=== PATIENT | female | born 1940 | race Caucasian/White ===

== ENCOUNTER → 2019-06-23 19:00 | Outpatient (ROUT) | payer OTHER, SELFPAY ==
[2019-06-23 19:20] LABS: Add Manual Diff / Slide Review NO; Basophils Absolute Auto 0 /uL (0-100); Basophils Percent Auto 0.3 % (0-2); Eosinophils Absolute Auto 500 /uL (0-450); Eosinophils Percent Auto 3.7 % (2-4); Hematocrit 33.3 % (36-46); Lymphocytes Absolute Auto 1800 /uL (1100-4500); Lymphocytes Percent Auto 14.7 % (25-40); Mean Corpuscular HGB Conc 33.1 % (30-36); Mean Corpuscular Volume 84.4 fL (80-100); Monocytes Absolute Auto 800 /uL (0-900); Monocytes Percent Auto 6.2 % (3-14); Neutrophils Absolute Auto 9200 /uL (1500-7000); Neutrophils Percent Auto 75.1 % (50-75); Platelet Count 268 X10^3/uL (150-400); Red Blood Cell Count 3.94 X10^6/uL (4.0-5.2); Red Cell Distribution Width 14.5 % (11.6-14.8); White Blood Cell Count 12.3 X10^3/uL (4.5-11.0)
[2019-06-23 19:29] LABS: Alanine Aminotransferase 21 IU/L (<35); Albumin 4.2 g/dL (3.5-5.0); Albumin Globulin Ratio 1.9 (1.0-2.8); Alkaline Phosphatase 140 U/L (38-126); Aspartate Aminotransferase 27 IU/L (14-36); BUN Creatinine Ratio 27.5 (6-22); Bilirubin Total 0.4 mg/dL (0.2-1.3); Blood Urea Nitrogen 22 mg/dL (7-17); Calcium 9.5 mg/dL (8.4-10.2); Carbon Dioxide 31 mmol/L (22-32); Chloride 94 mmol/L (98-107); Estimated Glomerular Filt Rate > 60.0 mL/min (>60); Globulin 2.2 g/dL (1.7-4.1); Glucose 89 mg/dL (80-110); HEMOLYSIS < 15 (0-50); Potassium 4.6 mmol/L (3.4-5.1); Sodium 137 mmol/L (137-145); Total Protein 6.4 g/dL (6.3-8.2)
== END ==
PROVIDERS: Visit Provider Student in an Organized Health Care Education/Training Program
DX: I10 Essential (primary) hypertension (principal)
CPT/HCPCS: 80053; 85025

== ENCOUNTER → 2019-07-30 15:42 | Outpatient (ROUT) | payer OTHER, SELFPAY ==
[2019-07-30 16:23] LABS: Alanine Aminotransferase 18 IU/L (<35); Albumin 4.3 g/dL (3.5-5.0); Albumin Globulin Ratio 1.7 (1.0-2.8); Alkaline Phosphatase 132 U/L (38-126); Aspartate Aminotransferase 26 IU/L (14-36); Bilirubin Total 0.4 mg/dL (0.2-1.3); Bilirubin Unconjugated 0.2 mg/dL (0.0-1.1); Globulin 2.5 g/dL (1.7-4.1); HEMOLYSIS < 15 (0-50); Total Protein 6.8 g/dL (6.3-8.2)
== END ==
PROVIDERS: Visit Provider Student in an Organized Health Care Education/Training Program
DX: R06.00 Dyspnea, unspecified (principal)
CPT/HCPCS: 80076

== ENCOUNTER → 2019-09-15 18:21 | Outpatient (ROUT) | payer OTHER, SELFPAY ==
[2019-09-15 19:19] LABS: Alanine Aminotransferase 18 IU/L (<35); Albumin 4.1 g/dL (3.5-5.0); Albumin Globulin Ratio 1.7 (1.0-2.8); Alkaline Phosphatase 133 U/L (38-126); Aspartate Aminotransferase 27 IU/L (14-36); Bilirubin Total 0.2 mg/dL (0.2-1.3); Bilirubin Unconjugated 0.1 mg/dL (0.0-1.1); Globulin 2.4 g/dL (1.7-4.1); HEMOLYSIS < 15 (0-50); Total Protein 6.5 g/dL (6.3-8.2)
[2019-09-15 19:54] LABS: Hemoglobin A1C% w Est Avg Glu 6.2 % (4.0-6.0)
[2019-09-16 14:38] LABS: Calcium 9.8 mg/dL (8.4-10.2); Gamma Glutamyl Transpeptidase 15 U/L (12-43)
[2019-09-18 12:16] LABS: Parathyroid Hormone Int 35 pg/mL (14-64)
== END ==
PROVIDERS: Visit Provider Student in an Organized Health Care Education/Training Program
DX: E11.9 Type 2 diabetes mellitus without complications (principal); I10 Essential (primary) hypertension
CPT/HCPCS: 80076; 82310; 82977; 83036; 83970

== ENCOUNTER → 2020-01-06 13:00 | Outpatient (CLI) | payer OTHER, SELFPAY ==
--- NOTE | 2020-01-06 13:03 | DI.RAD.S_ITS ---
PROCEDURE: XR LUMBAR SPINE MIN 4V INDICATIONS: LBP and hip pain TECHNIQUE: 5 views of the lumbar spine were acquired. COMPARISON: None. FINDINGS: Bones: No fracture or focal osseous destruction. Trace anterolisthesis of L2 on L3. Severe narrowing of the L3-L4, L4-L5 L5-S1 disc spaces. Moderate narrowing of the remaining lumbar disc spaces. Straightening of the normal lordotic curvature. Minimal levocurvature. Status post laminectomies at L2-S1. Sacroiliac sclerosis is seen bilaterally. Mild bilateral hip joint degeneration. Soft tissues: Overlying bowel gas pattern is normal. No suspicious soft tissue calcifications. Oblique images: No pars defects. IMPRESSION: Chronic postsurgical and degenerative changes as above Dictated by: Donal Vyas M.D. on 01/06/2020 at 15:53 Approved by: Donal Vyas M.D. on 01/06/2020 at 15:54
== END ==
PROVIDERS: PCP Student in an Organized Health Care Education/Training Program; Referring Provider Student in an Organized Health Care Education/Training Program; Visit Provider Physical Medicine & Rehabilitation
DX: M54.41 Lumbago with sciatica, right side (principal); M54.42 Lumbago with sciatica, left side; M25.559 Pain in unspecified hip; M16.0 Bilateral primary osteoarthritis of hip; M48.061 Spinal stenosis, lumbar region without neurogenic claudication; M48.07 Spinal stenosis, lumbosacral region; Z98.890 Other specified postprocedural states
CPT/HCPCS: 72110

== ENCOUNTER → 2020-03-28 14:40 | Outpatient (ROUT) | payer OTHER, SELFPAY ==
[2020-03-28 14:50] LABS: Add Manual Diff / Slide Review NO; Basophils Absolute Auto 0 /uL (0-100); Basophils Percent Auto 0.4 % (0-2); Eosinophils Absolute Auto 400 /uL (0-450); Eosinophils Percent Auto 3.4 % (2-4); Hematocrit 32.1 % (36-46); Hemoglobin 10.6 g/dL (12.0-16.0); Lymphocytes Absolute Auto 1600 /uL (1100-4500); Lymphocytes Percent Auto 15.8 % (25-40); Mean Corpuscular Hemoglobin 28.4 PG (26-34); Monocytes Absolute Auto 600 /uL (0-900); Neutrophils Absolute Auto 7600 /uL (1500-7000); Neutrophils Percent Auto 74.4 % (50-75); Platelet Count 255 X10^3/uL (150-400); Red Blood Cell Count 3.73 X10^6/uL (4.0-5.2); Red Cell Distribution Width 14.1 % (11.6-14.8); White Blood Cell Count 10.3 X10^3/uL (4.5-11.0)
[2020-03-28 14:56] LABS: Alanine Aminotransferase 22 IU/L (<35); Albumin 4.3 g/dL (3.5-5.0); Alkaline Phosphatase 116 U/L (38-126); Aspartate Aminotransferase 28 IU/L (14-36); BUN Creatinine Ratio 27.7 (6-22); Bilirubin Total 0.3 mg/dL (0.2-1.3); Blood Urea Nitrogen 26 mg/dL (7-17); Calcium 9.2 mg/dL (8.4-10.2); Carbon Dioxide 33 mmol/L (22-32); Chloride 96 mmol/L (98-107); Cholesterol 173 mg/dL (140-199); Estimated Glomerular Filt Rate 57.7 mL/min (>60); Globulin 2.2 g/dL (1.7-4.1); Glucose 93 mg/dL (80-110); HDL Cholesterol 46 mg/dL (40-60); HEMOLYSIS < 15 (0-50); LDL Cholesterol Calculated 93 mg/dL (<100); Potassium 4.8 mmol/L (3.4-5.1); Sodium 137 mmol/L (137-145); Total Protein 6.5 g/dL (6.3-8.2); Triglycerides 171 mg/dL (35-150)
[2020-03-30 14:30] LABS: HEMOLYSIS < 15 (0-50); Iron 54 ug/dL (37-170)
[2020-03-30 14:41] LABS: Percent Iron Saturation 19 % (15-50); Total Iron Binding Capacity 291 ug/dL (265-497); Transferrin 229 mg/dL (206-381)
[2020-03-30 15:07] LABS: Ferritin 35 ng/mL (11-264)
[2020-03-30 15:37] LABS: Folate > 20.0 ng/mL (2.76-20.0)
== END ==
PROVIDERS: PCP Student in an Organized Health Care Education/Training Program; Visit Provider Student in an Organized Health Care Education/Training Program
DX: I10 Essential (primary) hypertension (principal); E11.9 Type 2 diabetes mellitus without complications; R74.8 Abnormal levels of other serum enzymes
CPT/HCPCS: 80053; 80061; 82728; 82746; 83036; 83540; 83550; 85025

== ENCOUNTER → 2020-06-23 14:25 | Outpatient (ROUT) | payer OTHER, SELFPAY ==
[2020-06-23 14:38] LABS: Hematocrit 31.8 % (36-46); Hemoglobin 10.6 g/dL (12.0-16.0); Mean Corpuscular HGB Conc 33.4 % (30-36); Mean Corpuscular Hemoglobin 29.8 PG (26-34); Mean Corpuscular Volume 89.1 fL (80-100); Platelet Count 229 X10^3/uL (150-400); Red Blood Cell Count 3.57 X10^6/uL (4.0-5.2); Red Cell Distribution Width 13.6 % (11.6-14.8); White Blood Cell Count 11.3 X10^3/uL (4.5-11.0)
== END ==
PROVIDERS: PCP Student in an Organized Health Care Education/Training Program; Visit Provider Student in an Organized Health Care Education/Training Program
DX: D64.9 Anemia, unspecified (principal)
CPT/HCPCS: 85027

== ENCOUNTER 2020-07-18 10:30 | Outpatient (RCR) | payer OTHER, SELFPAY ==
--- NOTE | 2020-07-01 14:52 | PT.OIE ---
Current Diagnoses Benign paroxysmal vertigo, unspecified ear (07/01/20) Benign paroxysmal vertigo, left ear (07/01/20) Past Medical History (Last Updated 01/11/20 @ 16:21 by Job Dacosta DO) Diabetes Facet arthropathy, lumbar Lumbar post-laminectomy syndrome Scoliosis due to degenerative disease of spine in adult patient Past Surgical History (Last Reviewed 01/11/20 @ 16:18 by Job Dacosta DO) H/O lumbosacral spine surgery Visit Care Team Role Provider Type Tresa Stevens PA-C Attending Provider Physician Primary Care Provider Referring Provider Specialty: Internal Medicine Address: [address] [place] [address] Email: [email or web address] Physical [facility] Initial Evaluation PT-OP-A Visit Information Start: 07/01/20 14:42 Freq: Status: Active Protocol: Document 07/01/20 09:45 DCW (Rec: 07/01/20 14:52 DCW [id number]) Out-Patient Physical Therapy Visit Information Visit Information Visit Type Initial Evaluation Visit Start Time 09:45 Visit Stop Time 10:30 Total Visit Minutes 45 Visit Number 1 Number of [employer] Visits 0 Evaluation Information Evaluation Date 07/01/20 PT-OP-B Current Condition Start: 07/01/20 14:42 Freq: Status: Active Protocol: Document 07/01/20 09:45 DCW (Rec: 07/01/20 14:52 DCW [id number]) Current Condition History of Current Condition Onset Date 4 months Current Complaints Position-dependent vertigo History of Current Condition Pt is a 79 year old female complaining of a four month history of motion-induced vertigo when lying down to her left. Pt reports episodes last less than a minute. Pt denies recent hearing changes, diplopia, dysarthria, discoordination, or decreased mentation/consciousness. Pt reports symptoms are waxing/ waning in nature. Pt denies hx of hyperlipidemia, arrhythmia , head trauma, seizure, migraines, CVA, or excessive smoking or drinking. Pt does have a history of HTN, for which she just started a fourth medication, and DM II, which has been well controlled . PT-OP-C Subjective Start: 07/01/20 14:42 Freq: Status: Active Protocol: Document 07/01/20 09:45 DCW (Rec: 07/01/20 14:52 [facility] [id number]) OP-PT Subjective Patient Comments Patient Comments I looked up the Alice maneuver online, and did it myself, and it seemed to help, but then just went right back to normal by the end of the day. PT-OP-O Vestibular Start: 07/01/20 14:42 Freq: Status: Active Protocol: Document 07/01/20 09:45 DCW (Rec: 07/01/20 14:52 [facility] [id number]) Vestibular Assessment Screening Tests Vestibular Artery Screen Negative Auditory Tests Farias Test Within normal limits Rinne Test Negative Air Conduction Results Equal Visual Testing Smooth Pursuits Horizontal WNL Smooth Pursuits Vertical WNL Saccades Horizontal WNL Gaze Evoked Nystagmus With Fixation Negative Gaze Evoked Nystagmus Without Fixation Negative Heave Test Positive Bilateral Thrust Head Positive Bilateral Positional Testing [place]-Hallpike Positive Left,Negative Right, Upbeating,< 60 Seconds Comments Vestibular Comments During left [place]-Hallpike test, pt complained of vertigo and demonstrated up-beating, torsional nystagmus lasting approximately 15 seconds PT-OP-Q Treatments Start: 07/01/20 14:42 Freq: Status: Active Protocol: Document 07/01/20 09:45 DCW (Rec: 07/01/20 14:52 [facility] [id number]) Canalithic Repositioning BPPV Treatment Alice Affected Canal(s) Left posterior canal Reps x2 Comments Modified Alice PT-OP-T Assessment and Plan Start: 07/01/20 14:42 Freq: Status: Active Protocol: Document 07/01/20 09:45 DCW (Rec: 07/01/20 14:52 [facility] [id number]) Physical Therapy Assessment Rehab Potential Rehabilitation Potential Excellent Evaluation Complexity Number of Personal Factors/Comorbidities 0 Number of Body Systems Impaired 1-2 Clinical Presentation at Evaluation Unstable Impairments Impairments Balance,Coordination, Functional Activities, Vestibular Goals Two Impairment Pt has positive left Mary- Hallpike Cashier Greeter Goal (LTG) Pt to show negative positional testing bilaterally LTG Duration 08/01/20 One Impairment Pt experiences vertigo with bed mobility Penitentiary Goal (LTG) Pt to report feeling symptom- free with all bed mobility for one week. LTG Duration 1/18/21 Assessment Summary Assessment During left Mary-Hallpike test, pt complained of vertigo and demonstrated up-beating, torsional nystagmus lasting approximately 15 seconds, consistent with diagnosis of left-sided posterior canal BPPV, canalithiasis-type. Pt was treated with a left-sided modified Alice maneuver. Pt complained of symptoms in the first and third position, which is normally indicative of a successful treatment. Further positional testing was negative. Pt was educated on BPPV, expectations for treatment, possible recurrence (BPPV has a ~50% recurrence rate in the five years following treatment), and post -Alice restrictions. Pt to return in ~1 week for a follow -up appointment, and intermittently afterward as indicated for treatment of BPPV. Physical Therapy Plan Frequency and Duration Frequency of Treatment 1-2x/week Duration of Treatment 6 weeks Plan of Care Start Date 07/01/20 Plan of Care End Date 08/01/20 Therapeutic Interventions Therapeutic Interventions Balance Training,Canalithic Repositioning,Coordination Training,Vestibular Rehabilitation Next Visit Focus/Plan Next Note Type Treatment Note Next Visit Plan Positional testing, CRM as indicated
--- NOTE | 2020-07-01 14:52 | PT.OPPOC ---
Physical, Occupational & Speech Therapy At [facility] Current Diagnoses Benign paroxysmal vertigo, unspecified ear (07/01/20) Benign paroxysmal vertigo, left ear (07/01/20) Visit Care Team Role Provider Type Tresa Stevens PA-C Attending Provider Physician Primary Care Provider Referring Provider Specialty: Internal Medicine Address: [address] [place] [address], [facility] Email: [email or web address] Plan Of Care PT-OP-T Assessment and Plan Start: 07/01/20 14:42 Freq: Status: Active Protocol: Document 07/01/20 09:45 DCW (Rec: 07/01/20 14:52 DCW [id number]) Physical Therapy Assessment Rehab Potential Rehabilitation Potential Excellent Evaluation Complexity Number of Personal Factors/Comorbidities 0 Number of Body Systems Impaired 1-2 Clinical Presentation at Evaluation Unstable Impairments Impairments Balance,Coordination, Functional Activities, Vestibular Goals Two Impairment Pt has positive left Mary- Hallpike Correction Goal (LTG) Pt to show negative positional testing bilaterally LTG Duration 08/01/20 One Impairment Pt experiences vertigo with bed mobility Social Insurance Specialist Goal (LTG) Pt to report feeling symptom- free with all bed mobility for one week. LTG Duration 08/01/20 Assessment Summary Assessment During left [place]-Hallpike test, pt complained of vertigo and demonstrated up-beating, torsional nystagmus lasting approximately 15 seconds, consistent with diagnosis of left-sided posterior canal BPPV, canalithiasis-type. Pt was treated with a left-sided modified Alice maneuver. Pt complained of symptoms in the first and third position, which is normally indicative of a successful treatment. Further positional testing was negative. Pt was educated on BPPV, expectations for treatment, possible recurrence (BPPV has a ~50% recurrence rate in the five years following treatment), and post -Alice restrictions. Pt to return in ~1 week for a follow -up appointment, and intermittently afterward as indicated for treatment of BPPV. Physical Therapy Plan Frequency and Duration Frequency of Treatment 1-2x/week Duration of Treatment 6 weeks Plan of Care Start Date 07/01/20 Plan of Care End Date 08/01/20 Therapeutic Interventions Therapeutic Interventions Balance Training,Canalithic Repositioning,Coordination Training,Vestibular Rehabilitation Next Visit Focus/Plan Next Note Type Treatment Note Next Visit Plan Positional testing, CRM as indicated Plan of Care Dates Plan of Care Start Date 07/01/20 Plan of Care End Date 08/01/20 Electronically Signed by: Roman Finn, PT 07/01/20 [id number] Please Sign and Return: I have reviewed this Plan of Care and certify that the skilled therapy services above are required to meet the patient?s needs. Physician Signature Date Printed Name and Credentials Clinical Instructor Signature Printed Name and Credentials
--- NOTE | 2020-07-18 11:04 | PT.OTN ---
Current Diagnoses Benign paroxysmal vertigo, unspecified ear (07/18/20) Benign paroxysmal vertigo, left ear (07/18/20) Physical Therapy Treatment Note PT-OP-A Visit Information Start: 07/01/20 14:42 Freq: Status: Active Protocol: Document 07/18/20 10:30 DCW (Rec: 07/18/20 11:03 DCW [id number]) Out-Patient Physical Therapy Visit Information Visit Information Visit Type Treatment Note Visit Start Time 10:30 Visit Stop Time 11:00 Total Visit Minutes 30 Visit Number 2 Number of INFORMATION TECHNOLOGY ADVISOR Visits 0 Evaluation Information Evaluation Date 07/01/20 PT-OP-B Current Condition Start: 07/01/20 14:42 Freq: Status: Active Protocol: Document 07/01/20 09:45 DCW (Rec: 07/01/20 14:52 DCW [id number]) Current Condition History of Current Condition Onset Date 4 months Current Complaints Position-dependent vertigo History of Current Condition Pt is a 79 year old female complaining of a four month history of motion-induced vertigo when lying down to her left. Pt reports episodes last less than a minute. Pt denies recent hearing changes, diplopia, dysarthria, discoordination, or decreased mentation/consciousness. Pt reports symptoms are waxing/ waning in nature. Pt denies hx of hyperlipidemia, arrhythmia , head trauma, seizure, migraines, CVA, or excessive smoking or drinking. Pt does have a history of HTN, for which she just started a fourth medication, and DM II, which has been well controlled . PT-OP-C Subjective Start: 07/01/20 14:42 Freq: Status: Active Protocol: Document 07/18/20 10:30 DCW (Rec: 07/18/20 11:03 DCW [id number]) OP-PT Subjective Patient Comments Patient Comments Pt reports her dizziness in improved, but still present. I think there are two different things going on. At night, laying down in my bed, a couple times since I was in here a few weeks ago, I've had a few quick episodes of dizziness. But I've also had a few periods of feeling...it's hard to describe, but it's more of a disorientation. I feel the need to hang on to something for a little bit. What may be related to that could be medication changes or dehydration. PT-OP-O Vestibular Start: 07/01/20 14:42 Freq: Status: Active Protocol: Document 07/18/20 10:30 DCW (Rec: 07/18/20 11:03 DCW [id number]) Vestibular Assessment Positional Testing Mary-Hallpike Negative Left,Negative Right PT-OP-Q Treatments Start: 07/01/20 14:42 Freq: Status: Active Protocol: Document 07/18/20 10:30 DCW (Rec: 07/18/20 11:03 DCW [id number]) Canalithic Repositioning BPPV Treatment Alice Affected Canal(s) Left posterior canal Reps 1 Comments Modified Alice PT-OP-T Assessment and Plan Start: 07/01/20 14:42 Freq: Status: Active Protocol: Document 07/18/20 10:30 DCW (Rec: 07/18/20 11:03 DCW [id number]) Physical Therapy Assessment Impairments Impairments Balance,Coordination, Functional Activities, Vestibular Goals Two Impairment Pt has positive left Mary- Hallpike Recreational Therapy Technician Goal (LTG) Pt to show negative positional testing bilaterally LTG Duration 08/01/20 One Impairment Pt experiences vertigo with bed mobility Recreational Therapy Technician Goal (LTG) Pt to report feeling symptom- free with all bed mobility for one week. LTG Duration 08/01/20 Assessment Summary Assessment Pt completely asymptomatic today, no signs of continuing BPPV. Performed one Alice due to pt's complaints of occasional positional symptoms over the last ~week. Pt instructed to phone and schedule a follow-up with any additional symptoms or changes in symptoms. Pt also admits to a large number (four) of HTN meds, which she believes may be influencing her stability, and would like to discuss with her PCP alternatives. Physical Therapy Plan Frequency and Duration Frequency of Treatment 1-2x/week Duration of Treatment 6 weeks Plan of Care Start Date 07/01/20 Plan of Care End Date 08/01/20 Therapeutic Interventions Therapeutic Interventions Balance Training,Canalithic Repositioning,Coordination Training,Vestibular Rehabilitation Next Visit Focus/Plan Next Note Type Treatment Note Next Visit Plan Positional testing, CRM as indicated
--- NOTE | 2020-08-25 14:31 | PT.OPDS ---
Current Diagnoses Benign paroxysmal vertigo, unspecified ear (07/18/20) Benign paroxysmal vertigo, left ear (07/18/20) Visit Care Team Role Provider Type Tresa Stevens PA-C Attending Provider Physician Primary Care Provider Referring Provider Specialty: Internal Medicine Address: [address] [place] [address], [facility] Email: [email or web address] Visit Number Visit Number 2 Discharge Summary PT-OP-B Current Condition Start: 07/01/20 14:42 Freq: Status: Active Protocol: Document 07/01/20 09:45 DCW (Rec: 07/01/20 14:52 DCW [id number]) Current Condition History of Current Condition Onset Date 4 months Current Complaints Position-dependent vertigo History of Current Condition Pt is a 79 year old female complaining of a four month history of motion-induced vertigo when lying down to her left. Pt reports episodes last less than a minute. Pt denies recent hearing changes, diplopia, dysarthria, discoordination, or decreased mentation/consciousness. Pt reports symptoms are waxing/ waning in nature. Pt denies hx of hyperlipidemia, arrhythmia , head trauma, seizure, migraines, CVA, or excessive smoking or drinking. Pt does have a history of HTN, for which she just started a fourth medication, and DM II, which has been well controlled . PT-OP-C Subjective Start: 07/01/20 14:42 Freq: Status: Active Protocol: Document 07/18/20 10:30 DCW (Rec: 07/18/20 11:03 DCW [id number]) OP-PT Subjective Patient Comments Patient Comments Pt reports her dizziness in improved, but still present. I think there are two different things going on. At night, laying down in my bed, a couple times since I was in here a few weeks ago, I've had a few quick episodes of dizziness. But I've also had a few periods of feeling...it's hard to describe, but it's more of a disorientation. I feel the need to hang on to something for a little bit. What may be related to that could be medication changes or dehydration. PT-OP-O Vestibular Start: 07/01/20 14:42 Freq: Status: Active Protocol: Document 07/18/20 10:30 DCW (Rec: 07/18/20 11:03 DCW [id number]) Vestibular Assessment Positional Testing [place]-Hallpike Negative Left,Negative Right PT-OP-T Assessment and Plan Start: 07/01/20 14:42 Freq: Status: Active Protocol: Document 08/25/20 14:30 DCW (Rec: 08/25/20 14:31 DCW [id number]) Physical Therapy Assessment Assessment Summary Assessment At last appointment, pt was instructed to schedule follow- up visits if symptoms continued. Pt has not phoned for any follow-up visits, has now not been seen in more than one month. Pt will be discharged from skilled therapy at this time. Physical Therapy Plan Discharge Physical Therapy Discharge Reasons No Longer Attending PT
== END 2020-09-01 09:52 ==
LOC: PHYS 10:30
PROVIDERS: PCP Student in an Organized Health Care Education/Training Program; Referring Provider Student in an Organized Health Care Education/Training Program; Visit Provider Student in an Organized Health Care Education/Training Program
DX: H81.12 Benign paroxysmal vertigo, left ear (principal); H81.10 Benign paroxysmal vertigo, unspecified ear
CPT/HCPCS: 95992; 97140; 97161

== ENCOUNTER → 2020-12-01 09:16 | Outpatient (CLI) | payer OTHER, SELFPAY ==
[2020-12-01 10:30] LABS: Add Manual Diff / Slide Review NO; Basophils Absolute Auto 100 /uL (0-100); Basophils Percent Auto 0.6 % (0-2); Eosinophils Absolute Auto 400 /uL (0-450); Eosinophils Percent Auto 3.7 % (2-4); Hematocrit 32.8 % (36-46); Hemoglobin 10.7 g/dL (12.0-16.0); Lymphocytes Absolute Auto 1800 /uL (1100-4500); Lymphocytes Percent Auto 17.2 % (25-40); Mean Corpuscular HGB Conc 32.6 % (30-36); Mean Corpuscular Hemoglobin 28.8 PG (26-34); Mean Corpuscular Volume 88.5 fL (80-100); Monocytes Absolute Auto 700 /uL (0-900); Monocytes Percent Auto 6.9 % (3-14); Neutrophils Absolute Auto 7600 /uL (1500-7000); Neutrophils Percent Auto 71.6 % (50-75); Platelet Count 249 X10^3/uL (150-400); Red Blood Cell Count 3.71 X10^6/uL (4.0-5.2); Red Cell Distribution Width 13.6 % (11.6-14.8); White Blood Cell Count 10.7 X10^3/uL (4.5-11.0)
[2020-12-01 10:42] LABS: Alanine Aminotransferase 19 IU/L (<35); Albumin 4.3 g/dL (3.5-5.0); Albumin Globulin Ratio 1.8 (1.0-2.8); Alkaline Phosphatase 110 U/L (38-126); Aspartate Aminotransferase 26 IU/L (14-36); BUN Creatinine Ratio 33.3 (6-22); Bilirubin Total 0.3 mg/dL (0.2-1.3); Blood Urea Nitrogen 31 mg/dL (7-17); Calcium 9.5 mg/dL (8.4-10.2); Carbon Dioxide 32 mmol/L (22-32); Chloride 96 mmol/L (98-107); Estimated Glomerular Filt Rate 58.3 mL/min (>60); Globulin 2.4 g/dL (1.7-4.1); Glucose 118 mg/dL (80-110); HEMOLYSIS < 15 (0-50); Potassium 4.4 mmol/L (3.4-5.1); Sodium 135 mmol/L (137-145); Total Protein 6.7 g/dL (6.3-8.2)
[2020-12-01 10:50] LABS: NT-proBNP (BNP-Adult 18+) 415 pg/mL (<450)
== END ==
PROVIDERS: PCP Student in an Organized Health Care Education/Training Program; Referring Provider Student in an Organized Health Care Education/Training Program; Visit Provider Student in an Organized Health Care Education/Training Program
DX: I10 Essential (primary) hypertension (principal); R06.00 Dyspnea, unspecified
CPT/HCPCS: 36415; 80053; 83880; 85025

== ENCOUNTER → 2020-12-22 12:13 | Outpatient (CLI) | payer OTHER, SELFPAY ==
--- NOTE | 2020-12-22 | DI.ECHO.S_ITS ---
[facility] +---------+ [facility] +---------+ : : [address] : : : : [id number] : : : : Phone: [phone]---------+ Echocardiogram Report + + :Name: CHI ESPAÑA Study Date: 12/22/2020 Height: 60 in : :[facility] ReadingLocation: Weight: 205 lb : : Gender: Female BSA: 1.9 m2 : :: 1940 Age: 80 yrs BP: 140/71 mmHg: :Reason For Study: DYSPNEA ON EXERTION : :Ordering Physician: SRINATH, : :OMAYRA Performed By: Emily Justin : :Referring: OMAYRA YO : + + Interpretation Summary 1) Mildly increased left ventricular thickness (concentric), with normal size, normal wall motion, and normal systolic function (EF 60-65%). 2) Normal right ventricular size and function. 3) Diastolic parameters suggest a pseudonormalization pattern, consistent with probable elevated filling pressures. 4) No significant valvular abnormalities. 5) No prior Echo available for comparison. Procedure: A two-dimensional transthoracic echocardiogram with color flow and Doppler was performed. The study quality was technically adequate. There is no prior echocardiogram noted for this patient. The patient was in sinus bradycardia with heart rates between 52-58 bpm during the exam. Left Ventricle: The left ventricle is normal in size. There is mild concentric left ventricular hypertrophy. The ejection fraction is estimated to be 60-65%. Left ventricular systolic function appears normal without focal wall motion abnormalities. Diastolic parameters suggest a pseudonormalization pattern, consistent with probable elevated filling pressures. Right Ventricle: The right ventricle is normal size. The right ventricular systolic function is normal. Atria: The left atrium is severely dilated. Right atrial size is normal. There is no Doppler evidence for an interatrial shunt. Mitral Valve: The mitral valve is normal in structure and function. There is mild mitral regurgitation. Aortic Valve: The aortic valve is trileaflet. The aortic valve opens well. There is no aortic valve stenosis. No aortic regurgitation is present. Tricuspid Valve: The tricuspid valve is normal in structure and function. There is trace tricuspid regurgitation. The right ventricular systolic pressure is estimated to be at least 29 mmHg based on an estimated right atrial pressure of 3 mm Hg. Pulmonic Valve: The pulmonic valve leaflets are thin and pliable; valve motion is normal. There is no pulmonic valvular regurgitation. Great Vessels: The aortic root is normal size. The dimensions of the ascending aorta are normal. The IVC is of normal diameter and collapses greater than 50% with a sniff. This suggests a low right atrial pressure of 3 mm Hg. Pericardium/ Pleura There is no pericardial effusion. There is no pleural effusion. MMode/2D Measurements & Calculations LVIDd: 5.1 cm LVOT diam: 1.9 cm LVIDs: 3.4 cm Ao root diam: 2.8 cm FS: 33.6 % asc Aorta Diam: 3.0 cm EPSS: 0.49 cm IVSd: 1.3 cm LVPWd: 1.1 cm LV lake. diameter/BSA (cm/m^2): 2.7 LV sys. diameter/BSA (cm/m^2): 1.8 LA A2 area: 27.3 cm2 RA long axis: 5.9 cm LA A4 area: 24.5 cm2 RA area: 18.7 cm2 LA length (vol): 6.1 cm RA vol: 50.9 ml LA vol: 94.0 ml RA : 27.0 ml/m2 LA vol index: 49.8 ml/m2 IVC diam: 2.0 cm RVD2 (mid): 4.2 cm TAPSE: 2.4 cm Doppler Measurements & Calculations Ao V2 max: 163.5 cm/sec LVOT Max Chiki: 114.3 cm/sec Ao V2 mean: 114.6 cm/sec LV V1 max P.2 mmHg Ao max P.7 mmHg LV V1 VTI: 27.0 cm Ao mean P.9 mmHg SULMA(I,D): 2.0 cm2 Ao V2 VTI: 37.1 cm SULMA(V,D): 1.9 cm2 sev ratio: 0.73 SUMLA indexed to BSA (cm^2/m^2): 1.1 MV E max chiki: 116.6 cm/sec TR max chiki: 253.4 cm/sec MV A max chiki: 63.3 cm/sec TR max P.7 mmHg MV E/A: 1.8 PA V2 max: 94.6 cm/sec Med Peak E' Chiki: 7.0 cm/sec PA V2 mean: 68.4 cm/sec E/E' med: 16.6 PA mean P.1 mmHg Lat Peak E' Chiki: 8.9 cm/sec PA pr(Accel): 43.0 mmHg E/E' lat: 13.1 E/e' average: 14.9 MV dec time: 0.21 sec SV(LVOT): 75.1 ml Reading Physician:05:28 PM
== END ==
PROVIDERS: PCP Student in an Organized Health Care Education/Training Program; Referring Provider Student in an Organized Health Care Education/Training Program; Visit Provider Student in an Organized Health Care Education/Training Program
DX: I34.0 Nonrheumatic mitral (valve) insufficiency (principal); R06.00 Dyspnea, unspecified
CPT/HCPCS: 93306

== ENCOUNTER → 2021-04-14 11:13 | Outpatient (CLI) | payer OTHER, SELFPAY ==
--- NOTE | 2021-04-14 | DI.RAD.S_ITS ---
PROCEDURE: XR DEXA AXIAL SKELETON INDICATIONS: Unspecified menopausal and perimenopausal disorder COMPARISON: None. FINDINGS: This blank DEXA report has been sent in error by the PACS system. The correct and complete report will be forthcoming in 1-2 days. Thank you for your patience and understanding. Dictated by: Annika Rizzo MD, PhD on 04/14/2021 at 12:42 Approved by: Annika Rizzo MD, PhD on 04/14/2021 at 12:42
== END ==
PROVIDERS: PCP Student in an Organized Health Care Education/Training Program; Referring Provider Student in an Organized Health Care Education/Training Program; Visit Provider Student in an Organized Health Care Education/Training Program
DX: N95.9 Unspecified menopausal and perimenopausal disorder (principal); M85.832 Other specified disorders of bone density and structure, left forearm
CPT/HCPCS: 77080; 77081

== ENCOUNTER → 2021-06-15 11:03 | Outpatient (CLI) | payer OTHER, SELFPAY ==
--- NOTE | 2021-06-15 16:00 | DIAB.MNT ---
Addendum entered by Megha Wells 06/15/21 16:25: Also discussed foot health given her h/o DM and other etiologies that seem to impact the feeling in her feet. Encouraged daily foot checks. Original Note: Initial Diabetes Medical Nutrition Therapy Assessment Name: Yomaira Kinney Date: 06/15/21 Time: [id number] Dx: Type II Diabetes; class III obesity Provider: Rodney Burnette presents for initial nutrition therapy visit. States she has had DM for 20 years. Completed full DSME program over 10 years ago in [place]. Not currently checking BG. [place] it was a nuisance. Once HgA1c was below 7%, felt she no longer needed to check. Does not have a current meter. Main interest is in weight loss. Started a program called ?[employer]?. This program provides a diet each day via toño. Has been doing program for one month and lost 10#. Endorses 1-2# loss per week. Toño advises 1250kcals per day with 5 eating occurrences per day. 350 kcal per meal and snacks 150kcals. Toño reminds her to drink water. High goal of 94oz water daily. Encourages tracking steps, sleep, and exercise. In the kitchen a lot right now. 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 States this is the one downside of this diet. She is constantly cooking and grocery shopping is sometimes challenging. Seems unsustainable long-term, but currently happy with results and wants to cont. States during this diet change she has noticed improved IBS with gluten free food options. In review of this diet, most meals are appropriate in carb for T2Dm. One concern, many meals are low in protein. Has questions about whether this diet is appropriate for T2DM. Also wanting to reincorporate milk into her diet. States she was osteopenic last Dexa. Anthropometrics: Ht: 4'11 Wt: 195# reported Reported goal: 135# Weight history: 200-210# for the last twenty years, 210# last provider visit 05/01/21 Physical Activity: No program currently. uses walker for mobility. Considering walking paved track near her house, but feels she is too busy cooking. Self-Monitoring Blood Glucose: None. Given her reported well managed hgA1c, she may not need to consistently check. It might be a good idea to have a meter on hand. Diabetes Medications: 500 mg Metformin BID Pertinent Labs: Reports last HgA1c of 6.5%. None for review in EMR or referral. Past Medical History: (Last Updated 01/11/20 @ 16:21 by Job Dacosta DO) Diabetes Facet arthropathy, lumbar H/O lumbosacral spine surgery Lumbar post-laminectomy syndrome Scoliosis due to degenerative disease of spine in adult patient Per referral: claudication*, chronic anemia, CHF, asthma, dyspnea, elevated alkaline phos, HTN, low back pain, moderate major depression single episode, claude, chronic pain, osteoarthritis right hand, T2DM Reported PMH: Reports long hx of anemia. States this has to do with her bone marrow not producing enough RBC. Other reported PMH: CLAUDE, SOB sees plant specialist, HTN, 2 major sx on spine, lost feeling in both feet reportedly r/t spinal sx. Also, c/o back pain. Sees spinal specialist. Had claudication check: brachial index was good per her report Nutrition Rx: 1280kcal per day Carbohydrates: Daily: 130g Meal:30-45g Snack:15-30g Protein: Daily: 80-100g Meal: 15-25g Snack: 7-14g Nutrition Diagnosis: - Predicted inadequate protein intake r/t following lower protein diet aeb toño nutrition analysis and food choices - Physical inactivity r/t lack of time with cooking aeb pt report Intervention: This participant was very receptive. Provided appropriate educational handouts. Discussed the following topics: Completed intake assessment. HgA1c, and SMBG Potential for having home meter just in case there are times when she has symptoms and wants to check BG in the future. Weight loss goals: gradual, safe, and re-evaluate regularly Macronutrients impact on BG and recommendations Importance of protein BG mgmgnt Muscle health with aging and maintaining independence Recommended servings for carbohydrates at meals and snacks Heart health nutrition Brainstormed appropriate meal plan based on food preferences Role of physical activity and following provider guidelines for safety Created SMART goals for patient self-care and success. Goals: If meal req 30g or less of CHO, add 8 oz milk for added nutrients Try increasing protein at meals or snacks As self: what are my weight loss goals and how do I feel? (monthly) Consider safely walking paved trail with walker Follow-up: JAISON FRASER follow-up in one month. Yomaira would like extra time to work on goals. seems she is successful in her weight loss efforts. Since this diet is labor intensive for her, we may need to brainstorm a transitional diet for her in the future. Will re-evaluate next visit. Megha Wells RDN, [facility] Certified Diabetes Care and Scrubber Operator P: [phone] Thank you for this referral
== END ==
PROVIDERS: PCP Student in an Organized Health Care Education/Training Program; Referring Provider Student in an Organized Health Care Education/Training Program; Visit Provider Student in an Organized Health Care Education/Training Program
DX: E11.9 Type 2 diabetes mellitus without complications (principal); E66.9 Obesity, unspecified; Z68.39 Body mass index [BMI] 39.0-39.9, adult; Z71.3 Dietary counseling and surveillance; Z79.84 Long term (current) use of oral hypoglycemic drugs
CPT/HCPCS: 97802

== ENCOUNTER → 2021-07-03 11:20 | Outpatient (CLI) | payer OTHER, SELFPAY ==
--- NOTE | 2021-07-03 | DI.MRI.S_ITS ---
PROCEDURE: MR LUMBAR SPINE WO CON INDICATIONS: Spinal stenosis, lumbar region without neurogenic TECHNIQUE: Noncontrast sagittal T1 spin echo and T2 fast echo, coronal T2, sagittal STIR, axial T1 and T2 fast spin echo through the lumbar spine. COMPARISON: Outside Facility, RG, MRI L-SPINE W/WO CONTRAST, 01/08/2018, 8:10. [facility], CR, XR LUMBAR SPINE MIN 4V, 01/06/2020, 12:06. FINDINGS: Image quality: Excellent. Alignment and Curvature: There is a transitional element at S1, as before. Numbering system for the current report is as denoted on the montage panel of the current examination. There is loss of normal lumbar lordosis. There is mild grade 1 anterolisthesis of L2 on L3 and L3 on L4. Mild grade 1 retrolisthesis of L5 on S1 is present. Mild leftward curvature of the lower lumbar spine is present. Bone Marrow: Marrow is of normal overall signal. No acute vertebral body compression fractures. There is moderate reactive signal throughout the endplates of the lumbar spine. Laminectomy at L2-L5 has been performed, as before. Spinal Cord: Conus medullaris terminates at the L1-L2 disc space level. Visualized cord demonstrates normal signal and size. Paraspinous Soft Tissues: No paravertebral masses. T12-L1: Mild disc height loss and desiccation. Mild diffuse disc bulge. Mild facet and ligamentum flavum hypertrophy. Mild epidural lipomatosis. Mild canal stenosis. No foraminal stenosis. L1-L2: Severe disc height loss and desiccation. Moderate diffuse disc bulge . Mild facet and ligamentum flavum hypertrophy. Mild epidural lipomatosis. Increased, severe canal stenosis. Increased, moderate to severe left foraminal stenosis. No change in mild right foraminal stenosis. There is new mild left L1 nerve root compression. L2-L3: Moderate disc height loss and desiccation. Moderate to severe diffuse disc bulge. Mild bilateral facet hypertrophy. Mild canal stenosis. Severe bilateral foraminal stenosis. Bilateral L2 nerve root compression. No significant change. L3-L4: Laminectomy/fusion has been performed. Mild residual disc bulge/osteophyte. Mild bilateral facet hypertrophy. Mild canal stenosis. Mild right foraminal stenosis. No left foraminal stenosis. No significant change. L4-L5: Laminectomy/fusion has been performed. Mild residual disc bulge/osteophyte. Mild bilateral facet hypertrophy. Mild canal stenosis. Moderate left and mild right foraminal stenosis. No significant change. L5-S1: Moderate disc height loss. Mild bilateral facet hypertrophy. No significant canal, or foraminal stenosis. No significant change. IMPRESSION: 1. Postsurgical sequelae. 2. Multilevel degenerative disc and facet disease, as well as ligamentum flavum hypertrophy and epidural lipomatosis. 3. Multilevel canal stenoses, worst at L1-L2, where there is increased, severe canal stenosis. 4. Multilevel foraminal stenosis, worst at L2-L3 where there is associated intraforaminal nerve root compression. Recommend correlation with clinical symptoms to ascertain relevance of this finding. 5. Transitional element at S1. Recommend correlation with plain films, as well as the montage panel of the current examination for numbering purposes, prior to any lumbar spinal intervention. Dictated by: Binu Martínez M.D. on 07/03/2021 at 13:20 Approved by: Binu Martínez M.D. on 07/03/2021 at 13:25
== END ==
PROVIDERS: PCP Student in an Organized Health Care Education/Training Program; Referring Provider Orthopaedic Surgery Orthopaedic Surgery of the Spine; Visit Provider Orthopaedic Surgery Orthopaedic Surgery of the Spine
DX: M48.061 Spinal stenosis, lumbar region without neurogenic claudication (principal); M51.36 Other intervertebral disc degeneration, lumbar region; Z98.1 Arthrodesis status
CPT/HCPCS: 72148

== ENCOUNTER → 2021-07-19 10:59 | Outpatient (CLI) | payer OTHER, SELFPAY ==
--- NOTE | 2021-07-25 16:41 | DIAB.MNTFU ---
Follow-up Diabetes Medical Nutrition Therapy Assessment Name: Yomaira Kinney Date: 07/19/21 Time: 11a-12p Dx: Type II Diabetes; class III obesity Yomaira presents for nutrition follow-up. States that her weight loss dylan has been malfunctioning. She has called IT about this and is still working on it, but it has made it very difficult for her to proceed with this program. Reports continued intentional weight loss of about 4#. Reports a decrease in her pant size, which she is happy about. Endorses feeling as though she is getting use to the busy schedule of preparing two different meals for her and her . States during the holidays she felt as though she went off her eating plan, but was able to successfully get back on track. She is weighing herself 3-4 x per day, which seems excessive. States she does this mostly to determine trends in weight and water retention. Does not attribute any negative feelings with weighing in or the lack of weight changes at times. States she has not increased protein as discussed last visit, but has added some milk as discussed last visit. Anthropometrics: Ht: 4'11 Wt: 191#reported Weight history: -4# since last visit, indicating about 1# per week loss. Physical Activity: No program currently. uses walker for mobility. Considered walking trail by her house but snowy weather was a barrier. Self-Monitoring Blood Glucose: None Diabetes Medications: 500 mg Metformin BID Pertinent Labs:Reports last HgA1c of 6.5%. None for review in EMR or referral. Past Medical History: (Last Updated 01/11/20 @ 16:21 by Job Dacosta DO) Diabetes Facet arthropathy, lumbar H/O lumbosacral spine surgery Lumbar post-laminectomy syndrome Scoliosis due to degenerative disease of spine in adult patient Per referral: claudication*, chronic anemia, CHF, asthma, dyspnea, elevated alkaline phos, HTN, low back pain, moderate major depression single episode, claude, chronic pain, osteoarthritis right hand, T2DM Reported PMH: Reports long hx of anemia. States this has to do with her bone marrow not producing enough RBC. Other reported PMH: CLAUED, SOB sees community health outreach worker, HTN, 2 major sx on spine, lost feeling in both feet reportedly r/t spinal sx. Also, c/o back pain. Sees spinal specialist. Had claudication check: brachial index was good per her report Nutrition Rx: 1280kcal per day Carbohydrates: Daily: 130g Meal:30-45g Snack:15-30g Protein: Daily: 80-100g Meal: 15-25g Snack: 7-14g Nutrition Diagnosis: - Predicted inadequate protein intake r/t following lower protein diet aeb dylan nutrition analysis and food choices - in process - Physical inactivity r/t lack of time with cooking aeb pt report- no change Intervention: This participant was very receptive. Provided appropriate educational handouts. Discussed the following topics: Sustainability of this diet Protein sources to include What a healthy weight loss looks like for her Physical activity plan and safety Created SMART goals for patient self-care and success. Goals: If meal req 30g or less of CHO, add 8 oz milk for added nutrients- met Try increasing protein at meals or snacks- not met As self: what are my weight loss goals and how do I feel? (monthly)- met Consider safely walking paved trail with walker- not met Increase protein at meals- new Aim for 1-2# loss per week - new Overall, Yomaira seems happy with current diet and is having success with her weight goals. We will re assess next visit. Encouraged her to call me with any questions, concerns or sooner follow-up needs. Follow-up: JAISON FRASER follow-up in September 2021 Megha Wells RDN, [facility] Certified Diabetes Care and Bark Press Operator P: [phone] Thank you for this referral
== END ==
PROVIDERS: PCP Student in an Organized Health Care Education/Training Program; Referring Provider Student in an Organized Health Care Education/Training Program; Visit Provider Student in an Organized Health Care Education/Training Program
DX: E11.9 Type 2 diabetes mellitus without complications (principal); E66.9 Obesity, unspecified
CPT/HCPCS: 97803

== ENCOUNTER → 2021-09-27 10:56 | Outpatient (CLI) | payer OTHER, SELFPAY ==
--- NOTE | 2021-10-03 13:18 | DIAB.MNTFU ---
Follow-up Diabetes Medical Nutrition Therapy Assessment Name: Yomaira Kinney Date: 09/27/21 Time: [id number] Dx: Type II Diabetes Yomaira presents for follow-up regarding T2DM. Reports a plan for back sx October 13. Worries about pain mgmnt post-op. Also worries about her husbands care during her recovery. She is responsible for meals and house duties. She has hired maids to help twice per month. Considering meals on wheels ([facility]), but does not have contact info. States her closest relative is her daughter in [place]. Does not want to abuse her friends for help in the area since they are already helping some per report. 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 Can order them online, but needs help after. Brainstorming a plan for post-op for taking care of the household during recovery. Working with [facility] for resources.Plans to further discuss with doctor office electrician. has attended congregate meals at [facility] in the past. Considers this as an option after recovery. No longer using food prep dylan due to it is still not working correctly. Lost another 4# reportedly, a total of 20# since starting diet. Diet Recall: 8a: tea with toast and nut butter 11a: eggs and toast or oatmeal 2-3p: leftovers 7-9p: shrimp with noodles or chicken with baked potato Anthropometrics: Ht: 4'11 Wt: 187# reported Weight history: Last visit reported a wt of 191# Physical Activity: States pain is getting in the way of her function. No program currently. Self-Monitoring Blood Glucose: None Diabetes Medications: 500 mg Metformin BID Pertinent Labs:Reports last HgA1c of 6.5%. None recent for review in EMR or referral. Past Medical History: (Last Updated 01/11/20 @ 16:21 by Job Dacosta DO) Diabetes Facet arthropathy, lumbar H/O lumbosacral spine surgery Lumbar post-laminectomy syndrome Scoliosis due to degenerative disease of spine in adult patient Nutrition Rx: 1280kcal per day Carbohydrates: Daily: 130g Meal:30-45g Snack:15-30g Protein: Daily: 80-100g Meal: 15-25g Snack: 7-14g Nutrition Diagnosis: - Predicted inadequate protein intake r/t following lower protein diet aeb dylan nutrition analysis and food choices - improved - Physical inactivity r/t lack of time with cooking and physical pain aeb pt report - Potential for limited access to food r/t limited functions predicted during recovery and 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 Provided appropriate educational handouts. Discussed the following topics: Reviewed resources for [facility] and contact info Prepared a grocery list for shelf stable and frozen foods to have in the house in case there are weeks she cannot access a grocery store, ie frozen/canned veggies and proteins, frozen whole grains Brainstormed a meal plan with these foods Discussed ways to increase protein with ONS for healing after sx Created SMART goals for patient self-care and success. 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
== END ==
PROVIDERS: PCP Student in an Organized Health Care Education/Training Program; Referring Provider Student in an Organized Health Care Education/Training Program; Visit Provider Student in an Organized Health Care Education/Training Program
DX: E11.9 Type 2 diabetes mellitus without complications (principal)
CPT/HCPCS: 97803

== ENCOUNTER → 2021-10-04 16:11 | Outpatient (CLI) | payer OTHER, SELFPAY ==
[2021-10-04 17:31] LABS: Add Manual Diff / Slide Review NO; Basophils Absolute Auto 0 /uL (0-100); Basophils Percent Auto 0.4 % (0-2); Eosinophils Absolute Auto 300 /uL (0-450); Hematocrit 31.5 % (36-46); Hemoglobin 10.5 g/dL (12.0-16.0); Lymphocytes Absolute Auto 2200 /uL (1100-4500); Lymphocytes Percent Auto 18.5 % (25-40); Mean Corpuscular HGB Conc 33.5 % (30-36); Mean Corpuscular Hemoglobin 28.6 PG (26-34); Mean Corpuscular Volume 85.5 fL (80-100); Monocytes Absolute Auto 700 /uL (0-900); Monocytes Percent Auto 6.3 % (3-14); Neutrophils Absolute Auto 8400 /uL (1500-7000); Neutrophils Percent Auto 71.8 % (50-75); Platelet Count 257 X10^3/uL (150-400); Red Blood Cell Count 3.69 X10^6/uL (4.0-5.2); Red Cell Distribution Width 14.1 % (11.6-14.8); White Blood Cell Count 11.6 X10^3/uL (4.5-11.0)
[2021-10-04 17:45] LABS: BUN Creatinine Ratio 29.4 (6-22); Blood Urea Nitrogen 30 mg/dL (7-17); Calcium 9.5 mg/dL (8.4-10.2); Carbon Dioxide 32 mmol/L (22-32); Chloride 96 mmol/L (98-107); Estimated Glomerular Filt Rate 52.3 mL/min (>60); Glucose 130 mg/dL (80-110); HEMOLYSIS < 15 (0-50); Potassium 3.8 mmol/L (3.4-5.1); Sodium 136 mmol/L (137-145)
== END ==
PROVIDERS: PCP Student in an Organized Health Care Education/Training Program; Referring Provider Orthopaedic Surgery Orthopaedic Surgery of the Spine; Visit Provider Orthopaedic Surgery Orthopaedic Surgery of the Spine
DX: Z01.818 Encounter for other preprocedural examination (principal); Z01.812 Encounter for preprocedural laboratory examination
CPT/HCPCS: 36415; 80048; 85025; 93005

== ENCOUNTER → 2021-10-11 10:00 | Outpatient (CLI) | payer OTHER, SELFPAY ==
[2021-10-11 12:44] LABS: COVID19 -Nasal RAPID Negative (Negative)
== END ==
PROVIDERS: PCP Student in an Organized Health Care Education/Training Program; Visit Provider Family Medicine Sleep Medicine
DX: Z20.822 Contact with and (suspected) exposure to COVID-19 (principal)
CPT/HCPCS: 87635; C9803

== ENCOUNTER → 2021-10-11 13:58 | Outpatient (CLI) | payer OTHER, SELFPAY ==
--- NOTE | 2021-10-11 | DI.CT.S_ITS ---
PROCEDURE: CT LUMBAR SPINE WO CON INDICATIONS: Spinal stenosis, lumbar region TECHNIQUE: Noncontrast 3 mm thick sections acquired from the T12 level to the sacrum. Sagittal and coronal reformats were constructed. For radiation dose reduction, the following was used: automated exposure control. COMPARISON: None. FINDINGS: Image quality: Excellent. Bones: Normal bone mineralization present. There is been L2 through L5 decompressive laminectomies with interbody and posterolateral fusion at L3-4 and L4-5 grade 1 anterior spondylolisthesis noted at L1-2 and L2-3. T12-L1: Disc space narrowing and circumferential disc bulge without central or foraminal stenosis. L1-L2: Disc space narrowing and vacuum disc phenomena with circumferential disc bulge and hypertrophic facet joints resulting in moderate central and severe bilateral foraminal stenosis. L2-L3: Disc space narrowing with circumferential disc bulge and hypertrophic facet joints present. Vacuum disc phenomena noted. There is a decompressive laminectomy defect without central stenosis. Severe bilateral foraminal stenosis present. L3-L4: Discectomy and fusion without instrumentation. Decompressive laminectomy results in widely patent central canal. Hypertrophic facet joints result in moderate bilateral foraminal stenosis. L4-L5: Discectomy and fusion without instrumentation. Decompressive laminectomy results in widely patent central canal. Hypertrophic facet joints result in severe bilateral foraminal stenosis. L5-S1: Disc space narrowing present. Decompressive laminectomy noted. Moderate left and moderate right foraminal stenosis present. Soft tissues: No retroperitoneal masses or hematomas. Visualized aorta is normal in caliber. IMPRESSION: 1. Multilevel degenerative disc disease and arthropathy associated varying degrees of central and foraminal stenosis including moderate central and bilateral severe foraminal stenosis at L2-3. 2. Interbody and posterolateral fusion without instrumentation in the lower lumbar spine as above. Approved by: Mert Zamarripa M.D. on 10/11/2021 at 15:06
== END ==
PROVIDERS: PCP Student in an Organized Health Care Education/Training Program; Referring Provider Orthopaedic Surgery Orthopaedic Surgery of the Spine; Visit Provider Orthopaedic Surgery Orthopaedic Surgery of the Spine
DX: M48.062 Spinal stenosis, lumbar region with neurogenic claudication (principal); M51.36 Other intervertebral disc degeneration, lumbar region; M47.816 Spondylosis without myelopathy or radiculopathy, lumbar region; Z98.1 Arthrodesis status
CPT/HCPCS: 72131

== ENCOUNTER 2021-10-13 06:23 | Inpatient (IN) | payer OTHER, SELFPAY ==
[2021-10-09 08:13] VITALS: BMI 36.1
[2021-10-13] VITALS (19 sets, daily range): BP systolic 120–159; BP diastolic 42–63; PULSE 63–79; RESP 10–18; TEMP 35.9–36.8; O2SAT 90–99; BMI 35.7
--- NOTE | 2021-10-13 | DI.RAD.S_ITS ---
PROCEDURE: XR LUMBAR SPINE 2-3V INDICATIONS: L1-2, L2-3 TLIF TECHNIQUE: 2 fluoroscopic intraoperative views of the lumbar spine. COMPARISON: [facility], , XR LUMBAR SPINE MIN 4V, 01/06/2020, 12:06. FINDINGS: Bones: 2 fluoroscopic intraoperative views demonstrate posterior fixation of the lumbar spine. IMPRESSION: Fluoroscopic intraoperative views of lumbar spine fixation . Dictated by: Carrol Mejia M.D. on 10/13/2021 at 12:40 Approved by: Carrol Mejia M.D. on 10/13/2021 at 12:41
[2021-10-13] MEDS: LACTATED RINGERS 1,000 ML 42 ML IV ×2 (07:29→10:10)
[2021-10-13] MEDS: ACETAMINOPHEN 325 MG TABLET 975 MG PO (07:29)
--- NOTE | 2021-10-13 07:44 | PM.PREOP ---
Pre-operative Note COVID-19 COVID-19 status: Negative Result date/Date tested (Pos, Neg/Pending): 10/12/21 Criteria for continued procedure: Expected advancement of disease process, Possibility delay results in more complex future surgery or treatment, Increased loss of function, Continuing or worsening of significant or severe pain, Deterioration of the patient's condition or overall health and Delay expected to result in less-positive ultimate med/surg outcome Interval Note History & Physical reviewed/Exam performed by Physician: Yes Changes to H&P: No
[2021-10-13] MEDS: CEFAZOLIN 2 GM/20 ML SYRINGE IV ×3 (07:59→16:38)
--- NOTE | 2021-10-13 08:36 | SUR.OPER ---
Prone on spine table, head in foam head support, padded chest and pelvic supports, gel pad at knees, lower legs supported by pillows; nipples, genitalia and toes free of pressure, arms secured on foam padded arm boards at <90 degrees abduction. Tape over blanket at thigh secured to table Gel pad placed between bilateral feet.
[2021-10-13] MEDS: BUPIVACAINE 0.25% (PF) 60 ML, EPINEPHrine 0.3 MG INJ (08:57)
[2021-10-13] MEDS: BUPIVACAINE LIPOSOME 266 MG/20 ML VIAL INJ (08:58)
--- NOTE | 2021-10-13 12:30 | P.OP_ITS ---
Operative Date/Time/Diagnoses Date of procedure: 10/13/21 Time of procedure: 07:45 Pre-op diagnosis: 1. L1-2, L2-3 spinal stenosis with neurogenic claudication 2. Lumbar spondylolisthesis Post-op diagnosis: same Procedure & Clinicians Procedure: 1. L2-3 Postero-lateral and posterior interbody fusion 2. L2-3 interbody cage placement. 3. L1-2, L2-3 decompressive laminectomy with bilateral facetecomies 4. L1-2, L2-3 Posterior segmental instrumentation 5. L1-2 posterolateral fusion 6. Delia of bone marrow from iliac crest 7. Utilization of microsurgical technique and operating microscope 8. Utilization of [employer] robotic assisted surgery Same procedure as scheduled: Yes Indications: Patient has been having chronic back pain and worsening lumbar radiculopathy. Patient failed multiple conservative management with worsening pain weakness and numbness in her lower extremity. Patient has been having difficulty performing activity of daily living. After discussing risks benefits of treatment options, patient elected proceed with surgery. Surgeon: Jennifer Tavera Safety Sealer: Miguelina Nielsen Click Yes if Unassisted: No Anesthesia Type: General Operative Notes Closure Type: primary Specimen(s): none sent Prosthetic devices, grafts, tissues, transplants, or devices: Globus CREO MIS screws, Rise cage Applied: catheter Estimated Blood Loss (mL): 100 Blood products transfused: none Procedure in detail: Patient was seen in the preoperative area. Risks and benefits of the surgery was discussed with the patient. Informed consent was obtained from the patient and placed in the chart. Surgical site was marked. Patient was taken to the operative room. General anesthesia was administered. Prophylactic antibiotic was given to the patient less than 30 min before the incision was made. Patient was placed into a prone position on the Francisco table. Patient's back was then prepped and draped in the sterile fashion. Time-out was performed at this time. After patient was prepped and draped, patient's PSIS was palpated and marked bilaterally. Small 1 cm incision was made over the PSIS for placement of the reference probes. Two trocar was placed into the PSIS 1 on each side. The reference probe was attached to the trocar of the reference apparatus. At this time the C-arm imaging was used to confirm AP and lateral of L1-2, L2-3 vertebrae and merged the C-arm imaging using the [employer] robotic navigation system with the CT of the lumbar spine. After successful merging was completed and confirmed, skin marker was used to leighton out the skin incision using the [employer] robotic arm. Bilateral incision was made at this time. Pre templated trajectory was used and guided using the [employer] robotic navigation system for bilateral L1 L2, L3 pedicle screw placement. This was done by using the robotic arm to guide the high-speed bur to make a cortical entry point. Next a drill was placed also using the robotic arm and guided using the navigation system drilling partially through bilateral L1, L2, L3 pedicles. Next L1, L2, L3 pedicle screws it was pre templated and measured was placed onto the power regional dedicated truck driver and inserted into the pedicles bilaterally. After all 6 screws were placed C-arm imaging was taken of both AP and lateral to confirm the placement. Excellent placement of the screws were confirmed and a matched precisely with the pre planned screw placement using the navigation system. MARs retractor was inserted using [employer] guidence. Globus MARS retractors was placed inside the incision and docked onto the L1, L2 lamina. Using microsurgical technique and operating microscope, a L1, L2 laminectomy and L1-2, L2-3 facetectomy was performed using a Kerrison rongeur. Patient was found have severe lateral recess and neural foramen stenosis which was fully decompressed after the laminectomy facetectomy. More than 75% of the facets were removed during the process of decompression rendering L2-3, L3-4 level grossly unstable and required a fusion procedure at the same time. The disc space at L1-2, L2-3 was identified, and a total diskectomy was performed at L2-3 level. There was significant amount of epidural scarring at both levels. The L1-2 level had significant amount of scar along with proximity to the conus/spinal cord. Decision was made to not perform a L1-2 interbody fusion in order to protect the neurologic structures since appropriate decompression was already accomplished by doing the laminectomy and facetectomy. The endplates were decorticated using a rasp and shaver. The total diskectomy and decortication was performed at L2-3 level in order to to accomplish a L2-3 fusion. The local bone from the laminectomy and facetectomy was saved for local bone grafting. After the total diskectomy and decortication was completed, Trifecta bone graft material was combined with local bone that was harvested earlier. During the process of decompression L2-3 level, a small pinhole sized dural defect was identified. This is most likely due to previous open laminectomy with adhesion to the dura from the prior surgery. The DuraGen and Tisseel was used to patch the pinhole size dural defect. No CSF leakage was identified. At this time, a separate skin is incision was made over the iliac crest. A Jamshidi needle was inserted into the iliac crest through a separate skin incision. 5 cc of bone marrow aspiration was obtained through the separate skin incision using a Jamshidi needle from the iliac crest. The bone marrow aspiration was combined with local bone and the Trifecta bone grafting material. The bone grafting material was placed into the L2-3 interbody space along with expandable cages. One cage was inserted into the L2-3 interbody space along with bone graft material. The cage was expanded to its maximum height using the torque limiting screwdriver. The disc preparation as well as the cage insertion were also performed under navigation guidance. After the cage was placed, AP and lateral C-arm imaging was taken to confirm placement of the cage and excellent position was confirmed. Globus MARS retractor was inserted and docked onto the L1-2, L2-3 posterolateral gutter on the right side. Using the power drill, posterior-lateral decortication was performed at L1-2, L2-3 level until bleeding cortical bone was identified. The remaining bone grafting material was placed into the L1-2, L2-3 posterior lateral gutter he order to accomplish posterolateral fusion at the L1- 2, L2-3 level. At this time the tulips were attached to the L1, L2, L3 pedicle screw shanks. After measuring the length of the rods, they were inserted into the tulips of the pedicle screws and locked in place using locking caps and torque limiting screwdriver bilaterally. Total 6 caps and 2 titanium rods was used in order to complete the posterior instrumentation construct. After all the hardware was placed, and confirmed with AP and lateral C-arm imaging, the wound was then irrigated with sterile normal saline and packed with Ray-Muna gauze for 3 min to accomplish hemostasis. After the gauze was removed the deep fascia was closed with #1 Vicryl suture. The subcutaneous layer was closed with 2-0 Vicryl. The skin was closed with skin va. Patient tolerated the procedure well. There were no complications. Neuro monitoring system was used to monitor patient's neurologic status throughout entire procedure. There was no disturbance of the neural monitoring signals throughout the case. Patient will be kept head of the bed flat until tomorrow morning 7:00 a.m. due to the small dural defect identified at L2-3 level. Patient can elevate the head of bed starting at 7:00 a.m. as tolerated and perform physical therapy tomorrow morning. Complications: none Post-operative Condition: stable Disposition: PACU Plan for aftercare: Admit to inpatient hospital
[2021-10-13] MEDS: HYDROMORPHONE 2 MG INJ IV ×4 (12:42→13:11)
[2021-10-13] MEDS: INSULIN LISPRO 100 UNIT/ML 3ML VIAL SUBCUT (12:59)
[2021-10-13] MEDS: LORazepam 2 MG/ML INJ 0.25 MG IV (13:13)
--- NOTE | 2021-10-13 14:09 | SUR.PHASEI ---
Pt transferred to room 208 in bed with belongings bag, pink backpack (with glasses inside) and CPAP machine/mask bag. Pt alert, oriented, states pain down to 5/10 from 6/10 and 5/10 on admit. Pt transferred on 4L oxygen with sats 98%. RT at bedside upon arrival to set up CPAP machine as pt would occasionally doze off and O2 sat drop to 82% for less than 15 seconds. Pt would awake to very light touch to hand or name. Lungs clear, denies SOB, uses CPAP regularly at home. Pt to be on continuos pulse oximetry
[2021-10-13] MEDS: SODIUM CHLORIDE 0.9% 1,000 ML 100 ML IV (14:22)
[2021-10-13] MEDS: HYDROMORPHONE 0.5 MG INJ IV ×2 (15:22→22:10)
--- NOTE | 2021-10-13 16:40 | PT-IP ANOTE ---
EMR reviewed and pt's post-op not is pt to stay flat in bed until 7am tomorrow due to dural defect. PT to start tomorrow.
[2021-10-13] MEDS: OXYCODONE IR 5 MG TABLET 10 MG PO ×2 (17:25→20:25)
--- NOTE | 2021-10-13 18:13 | PC.NURSE ---
Patient arrived to floor at 1355. She had a tlif and fusion. Patient obtained a dural tear in her back, and she has to lay flat until 0700 in the morning. She is able to have head of bed up for meals and taking po meds. Given 0.5mg of iv dilaudid earlier and patient complained of pain a couple hours later. Given 10mg of oxycodone and she states that her pain is down from a 7. Patient ate a bit of her dinner, and is resting now. She has ivf and is tolerating this well. Dressing per carbon brushes assembler is cdi. Patient is alert and oriented x3, she asked why she has to lay flat and this RN sent a fax to to see if he can come and explain this to her. This RN felt that it was not her place to say anything if she has not seen the
[2021-10-13] MEDS: DOCUSATE 100 MG CAPSULE PO (20:21)
[2021-10-13] MEDS: AMLODIPINE 5 MG TABLET PO (20:21)
[2021-10-13] MEDS: HYDRALAZINE 25 MG TABLET PO (20:22)
[2021-10-13] MEDS: GABAPENTIN 300 MG CAPSULE PO (20:22)
[2021-10-13] MEDS: LABETALOL 100 MG TABLET 200 MG PO (20:23)
[2021-10-13] MEDS: SENNOSIDES 8.6 MG TABLET 17.2 MG PO (20:24)
[2021-10-13] MEDS: METFORMIN HCL 500 MG TABLET PO (20:24)
[2021-10-13] MEDS: ACETAMINOPHEN 325 MG TABLET 650 MG PO (20:24)
[2021-10-13] MEDS: POTASSIUM CHLORIDE 10 MEQ TAB PO (20:24)
[2021-10-13] MEDS: TIZANIDINE 4 MG TABLET 2 MG PO (20:25)
[2021-10-13] MEDS: hydrOXYzine pamoate 25 MG CAPSULE PO (22:10)
[2021-10-14] VITALS (9 sets, daily range): BP systolic 118–153; BP diastolic 37–58; PULSE 68–84; RESP 16; TEMP 36.4–37.7; O2SAT 93–100
[2021-10-14] MEDS: CEFAZOLIN 2 GM/20 ML SYRINGE IV (00:05)
[2021-10-14] MEDS: SODIUM CHLORIDE 0.9% 1,000 ML 100 ML IV (00:11)
[2021-10-14] MEDS: hydrOXYzine pamoate 25 MG CAPSULE PO (04:40)
[2021-10-14] MEDS: OXYCODONE IR 5 MG TABLET 10 MG PO ×5 (04:40→22:57)
[2021-10-14] MEDS: POLYVINYL ALCOHOL DROPS 1 DROPS EYE-RIGHT (04:42)
[2021-10-14 06:26] LABS: Hematocrit 25.7 % (36-46); Hemoglobin 8.6 g/dL (12.0-16.0)
[2021-10-14] MEDS: HYDROMORPHONE 0.5 MG INJ IV ×3 (06:49→20:23)
[2021-10-14] MEDS: MAGNESIUM OXIDE 400 MG TABLET PO (08:31)
[2021-10-14] MEDS: METFORMIN HCL 500 MG TABLET PO ×2 (08:31→17:00)
[2021-10-14] MEDS: LORATADINE 10 MG TABLET PO (08:31)
[2021-10-14] MEDS: POTASSIUM CHLORIDE 10 MEQ TAB PO ×2 (08:31→20:38)
[2021-10-14] MEDS: DOCUSATE 100 MG CAPSULE PO ×2 (08:31→20:37)
--- NOTE | 2021-10-14 08:59 | PC.NURSE ---
Addendum entered by Pepper Quezada R.N. 10/14/21 16:42: Patient up to the commode and did not have a bm. We will put her back to bed now. Addendum entered by Pepper Quezada R.N. 10/14/21 15:59: Patient worked with physical therapy for a second time and was able to sit up in the chair for an hour. Tolerated well. Medicated with oxycodone and she is napping now. Addendum entered by Pepper Quezada R.N. 10/14/21 12:03: Patient up to the chair, given dilaudid and then put back to bed. She is a two person assist to transfer. She is eating her lunch and tolerating this well. No problems with being up right secondary to dural tear in back. Original Note: Assess- Patient is alert and oriented x3, hob up for breakfast. Blood pressure with diastolic in the 30s and 40s. Patient denies any nausea, dizziness or syncopal episodes. Gave patient 10mg of oxycodone as her pain was a 6/7 in her lower back. She is laying flat with her legs elevated and resting now. Dressing to back is intact, cms wnl, patient states that she has neuropathy in both of her feet and this is normal. All blood pressure meds held at this time and will give her gabapentin a bit later.
--- NOTE | 2021-10-14 09:00 | PT.IIE ---
Current Diagnoses Spinal stenosis, lumbar region with neurogenic claudication (10/13/21) Postlaminectomy syndrome, not elsewhere classified (10/13/21) Surgery Performed Operation Date: 10/13/21 07:45 Actual Procedures p L1-2 fusion , L2-3 TLIF with posterior instrumentation-Robot - Jennifer Tavera MD Medical History (Last Reviewed 10/14/21 @ 11:32 by Miguelina Nielsen PA-C) Anemia Anxiety Arthritis Asthma CHF (congestive heart failure) Depression Diabetes Facet arthropathy, lumbar Fibromyalgia Heart failure HTN (hypertension) Lumbar post-laminectomy syndrome Neuropathy CLAUDE on CPAP Pneumonia (2017) Sciatica Scoliosis due to degenerative disease of spine in adult patient Seasonal allergies Spinal stenosis TIA (transient ischemic attack) Physical Therapy Inpatient Evaluation/Re-Eval M1 PT/OT-IP Prior Functional Status Start: 10/14/21 11:49 Freq: NEEDED Status: Active Protocol: Document 10/14/21 09:00 AB (Rec: 10/14/21 12:08 AB [email or web address]) Medical Review Prior Functional Status Medical History Reviewed Yes Communication able to make needs known Mobility and Gait pt stated that she is modified independent with all mobilities and ambulation without AD indoors but occasionally uses a 4WW depending on back pain; uses 4WW for outdoor mobility Social History Household Members spouse Living Arrangements House Number of Floors (Floors) Two Floors Number of Stairs To Enter/Railing? no steps to enter pt has arranged a hospital bed on the main level of the house so she does not have to go upstairs to get to the bedroom Home Environment Standard Height Toilet,Walk in Shower Home Equipment Front Wheel Walker,Four Wheel Walker,Bedside Commode,Shower Seat without Backrest,Hand Held Shower,Grab Bars Near Toilet,Grab Bars In Shower Additional Social History Comment pt stated that spouse will not be able to assist pt due to his own medical condition/ disability and curetnly uses a FWW for mobility M2 PT-IP Current Condition Start: 10/14/21 11:49 Freq: NEEDED Status: Active Protocol: Document 10/14/21 09:00 AB (Rec: 10/14/21 12:08 AB [email or web address]) Physical Therapy Current Condition Current Condition Evaluation Date 10/14/21 Treatment Diagnosis s/p L1-2, L2-3 TLIF; difficulty in walking M3 PT-IP Subjective Start: 10/14/21 11:49 Freq: NEEDED Status: Active Protocol: Document 10/14/21 09:00 AB (Rec: 10/14/21 12:08 [email or web address]) Subjective Physical Therapy Visit Type Type Initial Evaluation Visit Start Time 09:00 Visit Stop Time 09:57 Total Visit Minutes 57 Number of COMPUTER GAME TESTER Visits 0 Physical Therapy Visit Comments Patient Comments agreeable to do PT Therapy Pain Assessment Pain When Pain Assessed At Rest Pain Present Pain Present Pain Reported Location low back Scale Used pain scale not stated but increases with mobility Pain Management Techniques Apply Cold,Distraction, Modification of Treatment,Re- positioning,Timing of Activity with Medications M4 PT-IP Mobility and Gait Start: 10/14/21 11:49 Freq: NEEDED Status: Active Protocol: Document 10/14/21 09:00 AB (Rec: 10/14/21 12:08 [email or web address]) PT-Bed Mobility Assessment Rolling Type of Rolling Log Rolling Level of Assist Maximal Assistance Supine to Sit Supine to Sit Maximum Assistance,Bedrails PT-Transfer Assessment Sit to and From Stand Sit to and from Stand Maximum Assistance,2 Person Assistance,Use of Upper Extremities Equipment Transfer Assistive Device Gait Belt,Front Wheeled Walker Orthotic/Prosthetic Devices or Brace: No Transfers Transfer Destination Chair Transfer Technique Stand Step Pivot Transfer Ability Level of Assist Maximum Assistance,2 Person Assistance,Use of Upper Extremities Comments Mobility Comments ortho MD ordered pt to be flat in bed until 7am today due to dural defect. per nursing staff, pt's HOB elevated slightly to be able to eat but flat back again afterwards. pt still flat in bed upon checking. pt agreed to do PT. BP monitored. BP in supine: 118/48. elevated HOB 30 deg. BP checked after ~ 2 min : 132 /48. c/o increase back pain slight dizziness but stable. educated pt on back precautions and log roll bed mobility. HOB elevated up to 50 deg and BP checked again after 1-2 min: 129/53. elevated HOB to 60 deg and BP: 135/48. Pt tolerated HOB elevated for ~ 10 min. pt agreed to mobilize. completed supine to sit log roll max A and max cues. mod A for sitting balance on EOB. c/o lightheadedness with initial sitting on EOB. BP checked: 125/40. pt sat on EOB for ~ 2 min and BP: 144/79 . pt agreed to stand and completed sit to stand max A x 2 and max cues. increase muscle guarding of the trunk. completed step transfer to chair using FWW max A x 2 and max cues. positioned pt on the chair. BP checked: 123/54 . unable to ambulate at this time. PT-Balance Assessment Sitting Balance and Reactions Static Sitting Balance Ability Fair Dynamic Sitting Balance Ability Poor Standing Balance and Reactions Static Standing Balance Ability Poor Dynamic Standing Balance Ability Poor Device Used FWW M5 PT-IP Objective Assessments Start: 10/14/21 11:49 Freq: NEEDED Status: Active Protocol: Document 10/14/21 09:00 AB (Rec: 10/14/21 12:08 AB [email or web address]) Orientation Orientation/Cognition Level of Alertness Alert Orientation Name,Place,Situation Language Function Ability No Deficits Noted Safety Awareness Understands Safety Issues Memory Description No Deficits Noted Gross Range of Motion Lower Extremity ROM Assessment Within Functional Limits Strength Lower Extremity Strength Assessment Bilaterally Impaired Hip 3+/5 Knee 3+/5 Sensation Assessment Sensation Light Touch Impaired Proprioception (Position) Impaired Sensation Description Numbness,Tingling Comments Sensation Comments pt has chronic numbness on BLE Muscle Tone Muscle Tone WNL Yes M6 PT-IP Treatment Start: 10/14/21 11:49 Freq: NEEDED Status: Active Protocol: Document 10/14/21 09:00 AB (Rec: 10/14/21 12:08 [email or web address] Physical Therapy Treatment Education Education Provided Precautions,Weight Bearing Status,Post-Op Packet,Safety M7 PT-IP Assessment and Plan Start: 10/14/21 11:49 Freq: NEEDED Status: Active Protocol: Document 10/14/21 09:00 AB (Rec: 10/14/21 12:08 [facility]) PT Summary Assessment and Plan Potential Rehabilitation Potential Fair Status of Condition at Evaluation Evolving Summary Impairments Pain,ROM,Strength,Balance, Coordination,Sensation,Tone, Cognition,Bed Mobility, Transfers,Gait,Activity Tolerance Assessment Summary pt requiring max A x 2 with transfers using FWW and unable to ambulate at this time. c/ o increase pain and with dizziness affecting mobility and activity tolerance. pt will require SNF rehab to improve strength and functional independence. Goals Bed Mobility Goal Minimal Assistance Transfer Goal Minimal Assistance,Front Wheeled Walker Gait Goal Minimal Assistance,Front Wheel Walker Gait Distance 50 Other Goals improve ambulation and transfers using fWW SBA, ambulation using FWW 125 ft SBA Days to Meet Goals 10 Frequency of Treatment Frequency Of Treatment Twice a Day Treatment Plan Physical Therapy Treatment Plan Bed Mobility Training,Transfer Training,Gait Training, Therapeutic Exercise,Balance Retraining,Post Op Education, Discharge Planning,Hot or Cold Pack,Neuromuscular Re-ed, Coordination Retraining,Manual Therapy Precautions Lumbar Precautions Log Roll,No Twisting,Limit Bending,Lifting Restriction of 10 lbs,Gait Belt above Incisional Area Recommendations To Nursing Amount of Assist Needed 2 Person Assist Discharge Recommendations PT Discharge Recommendations SNF Rehab Transportation Needs at Discharge Wheelchair/Cabulance
[2021-10-14] MEDS: GABAPENTIN 300 MG CAPSULE PO ×2 (09:28→20:33)
--- NOTE | 2021-10-14 10:56 | OT.IP.EVAL ---
Current Diagnoses Spinal stenosis, lumbar region with neurogenic claudication (10/13/21) Postlaminectomy syndrome, not elsewhere classified (10/13/21) Surgery Performed Operation Date: 10/13/21 07:45 Actual Procedures p L1-2 fusion , L2-3 TLIF with posterior instrumentation-Robot - Jennifer Tavera MD Past Medical History (Last Reviewed 10/14/21 @ 11:32 by Miguelina Nielsen PA-C) Anemia Anxiety Arthritis Asthma CHF (congestive heart failure) Depression Diabetes Facet arthropathy, lumbar Fibromyalgia H/O lumbosacral spine surgery Heart failure History of arthroplasty of left knee History of arthroplasty of right knee History of carpal tunnel surgery of right wrist History of hysterectomy HTN (hypertension) Hx of elbow surgery (2018) Hx of laminectomy (1969) Hx of lumbosacral spine surgery (2012) Hx of tonsillectomy Lumbar post-laminectomy syndrome Neuropathy CLAUDE on CPAP Pneumonia (2016) Sciatica Scoliosis due to degenerative disease of spine in adult patient Seasonal allergies Spinal stenosis TIA (transient ischemic attack) Surgical History (Last Reviewed 10/14/21 @ 11:32 by Miguelina Nielsen PA-C) H/O lumbosacral spine surgery History of arthroplasty of left knee History of arthroplasty of right knee History of carpal tunnel surgery of right wrist History of hysterectomy Hx of elbow surgery (2018) Hx of laminectomy (1969) Hx of lumbosacral spine surgery (2012) Hx of tonsillectomy Occupational Therapy Inpatient Evaluation/Re-Eval M1 PT/OT-IP Prior Functional Status Start: 10/14/21 11:49 Freq: NEEDED Status: Active Protocol: Document 10/14/21 10:24 [facility] (Rec: 10/14/21 12:44 [facility] [id number]) Medical Review Prior Functional Status Medical History Reviewed Yes Communication able to make needs known Mobility and Gait pt stated that she is modified independent with all mobilities and ambulation without AD indoors but occasionally uses a 4WW depending on back pain; uses 4WW for outdoor mobility Social History Household Members spouse Living Arrangements House Number of Floors (Floors) Two Floors Number of Stairs To Enter/Railing? no steps to enter pt has arranged a hospital bed on the main level of the house so she does not have to go upstairs to get to the bedroom Home Environment Standard Height Toilet,Walk in Shower Home Equipment Front Wheel Walker,Four Wheel Walker,Bedside Commode,Shower Seat without Backrest,Hand Held Shower,Grab Bars Near Toilet,Grab Bars In Shower Additional Social History Comment pt stated that spouse will not be able to assist pt due to his own medical condition/ disability and currently uses a FWW for mobility M2 OT-IP Current Condition Start: 10/14/21 12:33 Freq: Status: Active Protocol: Document 10/14/21 10:24 [facility] (Rec: 10/14/21 12:44 [facility] [id number]) Occupational Therapy Current Condition Current Condition Evaluation Date 10/14/21 Treatment Diagnosis S/p L1-2, L2-3 TLIF Post Operative Precautions Lumbar Precautions Log Roll,No Twisting,Limit Bending,Lifting Restriction of 10 lbs,Gait Belt above Incisional Area M3 OT- IP Subjective and Pain Start: 10/14/21 12:33 Freq: Status: Active Protocol: Document 10/14/21 10:24 [facility] (Rec: 10/14/21 12:44 [facility] [id number]) OT- Subjective Occupational Therapy Visit Type Type Initial Evaluation Visit Start Time 10:24 Visit Stop Time 10:56 Total Visit Minutes 32 Occupational Therapy Visit Comments Patient Comments Pt wanting to get back to bed. Case management in the room initially and PA at the middle of OT eval. Patient/Caregiver Goals TO get better and go home. OT Pain Assessment Pain When Pain Assessed During Mobility Pain Present Pain Present Pain Reported Location low back Intensity 5 Scale Used Numeric (0 - 10) M4 OT- IP ADL's Start: 10/14/21 12:33 Freq: Status: Active Protocol: Document 10/14/21 10:24 [facility] (Rec: 10/14/21 12:44 [facility] [id number]) OT [id number] Comments OT Self-Feeding Comments Not at meal time. OT ADL-Grooming Comments OT Grooming Comments Not performed as pt just wanting to go back to bed. OT ADL-Oral Care Comments Oral Care Comments Able to educate to pt best to spit into a cup to best follow her back precautions at this time. OT ADL-Dressing General Eval Lower Body Dressing Ability Maximum Assistance Areas Needing Assistance Socks Comments OT Dressing Comments Pt has a stock transfer clerk at home and issued a long handle shoe horn . Pt states does not wear socks at home. OT ADL-Toileting Comments OT Toileting Comments At this time pt will need assist to wipe or possible get a toilet paper aid, to assess further. OT ADL-Bathing Comments OT Bathing Comments Not performed. M5 OT- IP IADL's Start: 10/14/21 12:33 Freq: Status: Active Protocol: Document 10/14/21 10:24 [facility] (Rec: 10/14/21 12:44 [facility] [id number]) OT-Instrumental Activities of Daily Living Home Safety Awareness Home Safety Comments Pt a bit groggy at this time and would need assist for all needs. M6 OT- IP Functional Cognition Start: 10/14/21 12:33 Freq: Status: Active Protocol: Document 10/14/21 10:24 [facility] (Rec: 10/14/21 12:44 [facility] [id number]) Cognitive Factors Limiting Selfcare Function Cognitive Ability Level of Alertness Alert,Drowsy Patient Orientation Name,Age,Birthday,Month,Date, Year,Day of Week,Place, Situation Attention Span Ability Capable of Focused Attention, Capable of Sustained Attention Ability to Follow Commands Able to Follow One Step Commands Cognitive Comments Cognitive Assessment Comments Pt able to follow commands to help get back to bed and able to recall her precautions. COntinue to assess cognitive needs. OT- Vision and Hearing OT- Hearing Assessment OT- Hearing Assessment WFL OT- Vision Assessment Visual Acuity Glasses All The Time M7 OT- IP Mobility and Balance Start: 10/14/21 12:33 Freq: Status: Active Protocol: Document 10/14/21 10:24 [facility] (Rec: 10/14/21 12:44 [facility] [id number]) OT- Bed Mobility Assessment Sit to Supine Sit to Supine Assist Maximum Assistance,2 Person Assistance OT-Transfer Assessment Sit to and From Stand Sit to and from Stand Moderate Assistance,Maximum Assistance,2 Person Assistance Transfers Transfer Ability Moderate Assistance,2 Person Assistance Technique Transfer Destination Bed,Chair Transfer Technique Stand Step Pivot Devices Transfer Assistive Devices Gait Belt,Front Wheeled Walker Comments Mobility Comments MOD/MAX Ax2 to stand to FWW and assist to the bed, assist for balance and to guide the FWW. OT- Balance Assessment Sitting Balance and Reactions Static Sitting Balance Ability Fair Standing Balance and Reactions Static Standing Balance Ability Poor Dynamic Standing Balance Ability Poor M8 OT- IP Objective Assessments Start: 10/14/21 12:33 Freq: Status: Active Protocol: Document 10/14/21 10:24 [facility] (Rec: 10/14/21 12:44 [facility] [id number]) OT-Muscle Tone Assessment Muscle Tone WNL Yes M9 OT- IP Assessment and Plan Start: 10/14/21 12:33 Freq: Status: Active Protocol: Document 10/14/21 10:24 [facility] (Rec: 10/14/21 12:44 [facility] [id number]) OT Summary Assessment and Plan Potential Rehabilitation Potential Good Analytic Complexity at Evaluation Low Summary OT Impairments Pain,Balance,Functional Cognition,Functional Mobility, Grooming,Dressing,Toileting, Bathing,Toilet Transfers, Shower Transfers,Activity Tolerance Progress Towards Goals Slow Progress due to Pain,Slow Progress due to Medical Issues,Slow Progress due to Activity Tolerance Assessment Summary Pt low complexity and main barriers are pain , and now needing two person assist for all ADl and mobility needs. Pt uses a FWW himself and not able to provide any lifting assist at this time. Pt would greatly benefit from skilled rehab prior to going home. Goals Grooming Goal Independent Dressing Goal Independent Toileting Goal Independent Bathing Goal Independent Toilet Transfer Goal Independent Shower Transfer Goal Independent Days to Meet Goals 15 Frequency of Treatment Frequency Of Treatment Once a Day Treatment Plan OT Treatment Plan ADL Training,Functional Mobility,Patient/Family Education,Discharge Planning Other Treatment Recommendations and [place] [facility] [place], Treatment Focus practice LB dressing Discharge Recommendations OT Discharge Recommendations SNF Rehab Transportation Needs at Discharge Wheelchair/Cabulance
--- NOTE | 2021-10-14 11:26 | PM.PNPO.1 ---
Subjective Subjective Date Patient Seen: 10/14/21 Time Patient Seen: 11:26 Interval history: Patient is complaining of moderate to severe low back pain this morning. She is also complaining of headache, lightheadedness and dizziness. Her hemoglobin is 8.6 and patient also experienced a dural tear at L2-3 intraoperatively yesterday. The head of her bed was down until 7:00 a.m. this morning. She is also having a scratchy throat. She is currently working with physical therapy. 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 She may need to be discharged to a long term facility. Exam Vital Signs (past 8 hours): - 10/14/21 04:45 10/14/21 09:09 Temperature 97.6 F 97.5 F L Pulse Rate 70 68 Respiratory Rate 16 16 Blood Pressure 118/39 L 123/37 L Pulse Oximetry 100 99 Oxygen Delivery Method Room Air,CPAP Oxygen Flow Rate 3 Narrative Exam Narrative: Pleasant 81-year-old female, sitting at the side of the bed, mild discomfort, no acute distress. Dressing is clean, dry, intact. Bilateral lower extremity: Motor functions are grossly intact, sensation is ?more prickly? on right leg as compared to the left, calves are soft and nontender to palpation. Objective Labs Result Diagrams: 10/14/21 06:05 Labs: Laboratory Results - last 24 hr 10/14/21 06:05 Hgb 8.6 L Hct 25.7 L PFSH Medical History Anemia Anxiety Arthritis Asthma CHF (congestive heart failure) Depression Diabetes Facet arthropathy, lumbar Fibromyalgia Heart failure HTN (hypertension) Lumbar post-laminectomy syndrome Neuropathy CLAUDE on CPAP Pneumonia (2017) Sciatica Scoliosis due to degenerative disease of spine in adult patient Seasonal allergies Spinal stenosis TIA (transient ischemic attack) Surgical History H/O lumbosacral spine surgery History of arthroplasty of left knee History of arthroplasty of right knee History of carpal tunnel surgery of right wrist History of hysterectomy Hx of elbow surgery (2018) Hx of laminectomy (1969) Hx of lumbosacral spine surgery (2012) Hx of tonsillectomy Family History Father Lung cancer Mother Vascular dementia Sister Allergies Asthma Hypertension Vascular dementia Grandmother No problems noted. Social History household members: spouse Smoking Status: Never smoker alcohol intake: former Assessment & Plan Post-op Postoperative Procedures: Procedures Operation Date: 10/13/21 07:45 Actual Procedure Side Surgeon p L1-2 fusion , L2-3 TLIF with posterior instrumentation-Robot Jennifer Tavera MD Postoperative day: 1 Postoperative status: marginal pain control Postoperative status narrative: Status post L1-2 fusion, L2-3 TLIF -L2-3 intraoperative dural tear Postoperative plan narrative: -mobilize with PT. Weightbearing as tolerated front wheel walker. Limit bending, lifting, twisting x6 weeks -continue to monitor for her dural tear including any lightheadedness, dizziness or headaches. Repeat H&H will be done tomorrow as her hemoglobin is currently 8.6. -continue with multimodal pain management -throat lozenges were ordered today -DC likely to SNF versus home, depending on physical therapy and support. Likely in 1-2 days.
--- NOTE | 2021-10-14 12:48 | CM.DANOTE ---
Patient is a 81 yo female who was admitted on 10/13/21 for TLIF. Pt has [employer] MCR ADV for insurance and her PCP is Tresa Stevens. EMR was reviewed. Per Ortho MD, pt tolerated procedure well and to work with PT/OT. Per PT, pt currently 2PA. OT met bedside with pt and Ortho PA and pt may need SNF at d/c. SW met bedside with pt and explained role and she confirms she lives in [place] with her spouse who had a stroke 2 years ago and still has one sided weakness and needs walker for ambulation and therefore limited in his ability to assist but can get food and items for pt but not physically assist. Pt denies any hx of HH or SNF for herself but spouse has been to [facility] after his stroke and is currently open with [facility]. Pt states she worked hard leading up to surgery and secured a hospital bed through insurance prior to surgery and has that available at d/c but currently feels SNF likely needed. SW discussed need to obtain [employer] auth and find contracted SNF which is likely [facility] and [facility]. Pt agreeable with SW contacted [facility] to begin with to see if they could accept. SW called [facility] and updated and they have beds and willing to review but would not be able to start auth until Mon morning (tomorrow is Sun). SW faxed clinicals to review. PASRR completed and printed copy of pt's COVID vaccination record and fully vaccinated with booster. Plan: SW to follow tomorrow, Sun, with [facility] to confirm they can accept otherwise referral will need to be sent to [facility]. JUAN Rodriguez Discharge Planning/Care Management CM Discharge Assessment Start: 10/14/21 12:46 Freq: Status: Active Protocol: Document 10/14/21 12:47 [facility] (Rec: 10/14/21 12:48 [facility] [id number]) Discharge Planning Assessment Assigned Geological Scout JUAN Mary DPOA/Assigned Designee Name spouse Edgardo and Amrit Ferguson Advance Directives? Yes Advance Directives on File No History Provided By Patient,Medical Record Has Patient been admitted in last 30 No days? Prior Living Arrangements House Household Members spouse Type of transporation used prior to Drives own vehicle admit Independent with ADL's Yes Is patient alert and oriented? Yes Caregiver for Another No DME Already Rented / Owned Hospital Bed,FWW / Walker Patient/Family Preference [facility] Facility Barriers to Discharge Yes Comment [employer] MCR auth will be needed Discharge Plan [facility] Facility Transportation Arrangement Facility van if SNF Referrals Initiated [facility] If patient plan is SNF: Has PASSR been Yes completed? Medicare Choice List Provided Yes SNF/HH Preference Any [employer] contracted SNF Has Agency SNF been contacted Yes Whiteboard Updated in Patient Room with Yes name and ext. # of Geological Scout Review Status In Process Please Provide Date Initial DC 10/14/21 Assessment Was Performed Next Review Type Continued Stay Review Pre-Anesthesia Assessment Start: 10/04/21 12:45 Freq: Status: Active Protocol: Document 10/09/21 08:13 [facility] (Rec: 10/04/21 13:46 [facility] [id number]) Pre-Anesthesia Assessment PAC Comment LBBB is chronic per PCP, note in surgery folder for dos. Patient Information Reviewed Via Phone Assessment Assessment Completed With Patient Comment Pt needs to do labs/ECG, today , COVID screen @ 10/11/21 Primary Care Provider Tresa Stevens Seen Specialist in Last 12 Months Yes Specialist Seen Orthopedist,Hosiery Repairer, Sleep specialist Comment Pulmonary pre-op 07/18/21 not scanned, in surgery folder for dos Primary Language Hungarian Track Layer Head Required No Height 152.4 cm Weight 83.915 kg Body Mass Index (BMI) 36.1 Visual Assist Glasses Barriers to Learning None Other Aids Yes: CPAP Hx Anesthesia Reactions No Hx Family Anesthesia Reaction Yes: Daughter-allergic to anesthesia-PONV Hx Malignant Hyperthermia No Hx Blood Transfusions Yes: 2012 Hx Blood Transfusion Reaction No Anesthesia Review Requested No First Aid Trainer Yes: hx CVA'20, they need assist with care at [place] alcohol intake former Smoking Status Never smoker Substance Use Type does not use Pain Present Pain Reported Musculoskeletal Symptoms Abnormal Gait,Back Pain, Difficulty Walking,Numbness, Radiating Pain into Limb, Tingling History of Falling (Recent or History of Yes ) Patient is completely paralyzed or No completely immobile Prosthesis or Orthotic Device Cane,Front Wheel Walker Mental Status Oriented to own ability Is patient on oxygen? No Does patient have RAMIREZ/SOB Yes: Chronic, deconditioning per pt Hx Sleep Apnea Yes CPAP/BIPAP use prescribed and used routinely Will Bring CPAP/BIPAP DOS Yes Currently Taking a Beta Sarah No Can You Climb a Flight of Stairs Without No SOB Hx Chest Pain No Hx SOB Yes: Chronic, deconditioning per pt Hx Syncope or Dizziness No Anti-Coagulant Therapy No Has a Horticulture Supervisor No Cardiac Testing No Hx Pacemaker/ICD No Pacemaker Rep Required? No Diet Type At Home Regular dysphagia No Gastrointestinal Symptoms Constipation Urinary Catheter Present No Hx Urinary Self Catheterization No Diabetes Yes: Pt does not check blood sugars at home Patient No Lactating No Presence of External or Internal Medical Yes: Bilat knees, CPAP Devices Have you had any close contact with No someone diagnosed with COVID-19? Received a COVID vaccine? Yes Received all doses? Yes Marital Status Lives With spouse Prior Living Arrangements House Number of Floors (Floors) Two Floors Support System Spouse Does the Patient Have Assistance After No: hx CVA'20, they Surgery need assist with care at [place] Comment Pt not advised on length of stay per surgeon Feels Safe in Current Environment Yes Been Physically Hurt or Threatened By a No Person in Current Environment Do you have thoughts of harming yourself None or others? Are you currently considering suicide? No Do you have a plan to hurt yourself or No Plan others? Do You Have Any Spiritual Beliefs That No May Affect Your HC Choices? Do You Have Any Cultural Practices That No May Affect Your HC Choices? Comment Sikh Who Can We Speak to About Patient's Care Family, friends Identifying Code for Release of Patient Declines to issue Information Health Care Proxy/Next of Kin Edgardo () Phyllis (daughter ) Health Care Proxy Phone Number Edgardo: [phone] Phyllis: Advance Directives? Yes Advance Directives on File No Requested Patient Bring Advanced Yes Directives DOS Power of Hand Filer Balance Wheel Yes Power of Hand Filer Balance Wheel Name Edgardo () Phyllis (daughter ) Power of Hand Filer Balance Wheel Phone Number Edgardo: [phone] Phyllis: PAC Instructions Bring CPAP/BIPAP,Diabetes instructions,Durable medical equipment,Medications to take/ avoid,Nasal antibiotic,No ETOH /petroleum product on skin DOS ,NPO,Post-op transportation, Sturdy shoes/comfortable clothes,Do not bring valuables and remove jewelry
--- NOTE | 2021-10-14 13:10 | PT.IPTN ---
Current Diagnoses Spinal stenosis, lumbar region with neurogenic claudication (10/13/21) Postlaminectomy syndrome, not elsewhere classified (10/13/21) Surgery Performed Operation Date: 10/13/21 07:45 Actual Procedures p L1-2 fusion , L2-3 TLIF with posterior instrumentation-Robot - Jennifer Tavera MD Physical Therapy Treatment Note M2 PT-IP Current Condition Start: 10/14/21 11:49 Freq: NEEDED Status: Active Protocol: Document 10/14/21 09:00 [facility] (Rec: 10/14/21 12:08 AB [id number]) Physical Therapy Current Condition Current Condition Evaluation Date 10/14/21 Treatment Diagnosis s/p L1-2, L2-3 TLIF; difficulty in walking M3 PT-IP Subjective Start: 10/14/21 11:49 Freq: NEEDED Status: Active Protocol: Document 10/14/21 13:10 [facility] (Rec: 10/14/21 14:25 AB [id number]) Subjective Physical Therapy Visit Type Type Treatment Note Visit Start Time 13:10 Visit Stop Time 13:47 Total Visit Minutes 37 Number of LABOR RELATIONS CONSULTANT Visits 0 Physical Therapy Visit Comments Patient Comments pt is agreeable to do PT Therapy Pain Assessment Pain When Pain Assessed At Rest Pain Present Pain Present Pain Reported Location low back Intensity 8 Scale Used Numeric (0 - 10) Pain Management Techniques Apply Cold,Distraction, Modification of Treatment,Re- positioning,Timing of Activity with Medications M4 PT-IP Mobility and Gait Start: 10/14/21 11:49 Freq: NEEDED Status: Active Protocol: Document 10/14/21 13:10 [facility] (Rec: 10/14/21 14:25 AB [id number]) PT-Bed Mobility Assessment Rolling Type of Rolling Log Rolling Level of Assist Maximal Assistance Supine to Sit Supine to Sit Maximum Assistance PT-Transfer Assessment Sit to and From Stand Sit to and from Stand Maximum Assistance,1 Person Assistance,Use of Upper Extremities Equipment Transfer Assistive Device Gait Belt,Front Wheeled Walker Orthotic/Prosthetic Devices or Brace: No Transfers Transfer Destination Chair Transfer Technique Stand Step Pivot Transfer Ability Level of Assist Maximum Assistance,1 Person Assistance,Use of Upper Extremities Comments Mobility Comments BP supine: 142/42. pt c/o headache. agreed to do PT. completed supine to sit log roll max A and max cues. pt able to sit on EOB SBA to CGA. BP checked: 153/57. completed sit to stand max A and max cues for techniques and steadiness. pt stated that she feels shaky. nurse in room SBA for safety. pt completed step transfer to chair using FWW max A and max cues. positioned on chair. BP checked: 152/52. call light and table placed within reach. ice pack provided. pt agreed to try to sit up on chair as tolerated. pt unable to ambulate and c/o feeling tired. pt's diastolic BP also low. nurse is aware M5 PT-IP Objective Assessments Start: 10/14/21 11:49 Freq: NEEDED Status: Active Protocol: Document 10/14/21 09:00 AB (Rec: 10/14/21 12:08 AB [id number]) Orientation Orientation/Cognition Level of Alertness Alert Orientation Name,Place,Situation Language Function Ability No Deficits Noted Safety Awareness Understands Safety Issues Memory Description No Deficits Noted Gross Range of Motion Lower Extremity ROM Assessment Within Functional Limits Strength Lower Extremity Strength Assessment Bilaterally Impaired Hip 3+/5 Knee 3+/5 Sensation Assessment Sensation Light Touch Impaired Proprioception (Position) Impaired Sensation Description Numbness,Tingling Comments Sensation Comments pt has chronic numbness on BLE Muscle Tone Muscle Tone WNL Yes M6 PT-IP Treatment Start: 10/14/21 11:49 Freq: NEEDED Status: Active Protocol: Document 10/14/21 13:10 AB (Rec: 10/14/21 14:25 AB [id number]) Physical Therapy Treatment Education Education Provided Precautions,Safety M7 PT-IP Assessment and Plan Start: 10/14/21 11:49 Freq: NEEDED Status: Active Protocol: Document 10/14/21 13:10 [facility] (Rec: 10/14/21 14:25 [email or web address]) PT Summary Assessment and Plan Potential Rehabilitation Potential Fair Summary Impairments Pain,ROM,Strength,Balance, Coordination,Sensation,Tone, Cognition,Bed Mobility, Transfers,Gait,Activity Tolerance Progress Towards Goals Slow Progress due to Pain,Slow Progress due to Medical Issues,Slow Progress due to Activity Tolerance Assessment Summary pt improving slowly but requires max A with transfers using FWW and unable to tolerate much activity and not able to ambulate. pt continues to have low diastolic BP and pt with c/o headache and feeling tired and increase LBP. will continue to assess progress but pt will require SNF rehab to improve overall strength and mobility. Goals Bed Mobility Goal Minimal Assistance Transfer Goal Minimal Assistance,Front Wheeled Walker Gait Goal Minimal Assistance,Front Wheel Walker Gait Distance 50 Other Goals improve ambulation and transfers using fWW SBA, ambulation using FWW 125 ft SBA Days to Meet Goals 10 Frequency of Treatment Frequency Of Treatment Twice a Day Treatment Plan Physical Therapy Treatment Plan Bed Mobility Training,Transfer Training,Gait Training, Therapeutic Exercise,Balance Retraining,Post Op Education, Discharge Planning,Hot or Cold Pack,Neuromuscular Re-ed, Coordination Retraining,Manual Therapy Precautions Lumbar Precautions Log Roll,No Twisting,Limit Bending,Lifting Restriction of 10 lbs,Gait Belt above Incisional Area Recommendations To Nursing Amount of Assist Needed 2 Person Assist Discharge Recommendations PT Discharge Recommendations SNF Rehab Transportation Needs at Discharge Wheelchair/Cabulance
[2021-10-14] MEDS: BENZOCAINE/MENTHOL 1 LOZ PKT 1 EACH PO ×3 (13:52→23:15)
[2021-10-14] MEDS: ACETAMINOPHEN 325 MG TABLET 650 MG PO (20:27)
[2021-10-14] MEDS: SENNOSIDES 8.6 MG TABLET 17.2 MG PO (20:35)
[2021-10-14] MEDS: PRAMIPEXOLE 0.25 MG TABLET 0.75 MG PO (20:38)
[2021-10-14] MEDS: AMLODIPINE 5 MG TABLET PO (23:00)
[2021-10-14] MEDS: LABETALOL 100 MG TABLET 200 MG PO (23:00)
[2021-10-15] VITALS (12 sets, daily range): BP systolic 111–164; BP diastolic 30–53; PULSE 65–87; RESP 16–18; TEMP 35.8–37.4; O2SAT 85–96
[2021-10-15] MEDS: HYDROMORPHONE 0.5 MG INJ IV (03:05)
[2021-10-15] MEDS: ACETAMINOPHEN 325 MG TABLET 650 MG PO ×3 (03:58→15:29)
[2021-10-15] MEDS: MAGNESIUM HYDROXIDE 30 ML UDC PO ×2 (04:01→13:34)
[2021-10-15] MEDS: OXYCODONE IR 5 MG TABLET 10 MG PO ×6 (05:07→21:57)
[2021-10-15 05:34] LABS: Hematocrit 26.6 % (36-46)
[2021-10-15] MEDS: GABAPENTIN 300 MG CAPSULE PO ×3 (08:36→21:07)
[2021-10-15] MEDS: POTASSIUM CHLORIDE 10 MEQ TAB PO ×2 (08:36→21:07)
[2021-10-15] MEDS: BUMETANIDE 1 MG TABLET PO (08:36)
[2021-10-15] MEDS: DOCUSATE 100 MG CAPSULE PO ×2 (08:36→21:07)
[2021-10-15] MEDS: METFORMIN HCL 500 MG TABLET PO ×2 (08:37→16:35)
[2021-10-15] MEDS: MAGNESIUM OXIDE 400 MG TABLET PO (08:37)
[2021-10-15] MEDS: LORATADINE 10 MG TABLET PO (08:37)
--- NOTE | 2021-10-15 09:57 | PC.NURSE ---
day shift - Pt BP this morning was 142/51, due to BP I held losartan, hydralazine, and lobetalol. I am waiting for the PA to come and see Pt and see what they want to do.
--- NOTE | 2021-10-15 11:09 | PT.IPTN ---
Current Diagnoses Spinal stenosis, lumbar region with neurogenic claudication (10/13/21) Postlaminectomy syndrome, not elsewhere classified (10/13/21) Surgery Performed Operation Date: 10/13/21 07:45 Actual Procedures p L1-2 fusion , L2-3 TLIF with posterior instrumentation-Robot - Jennifer Tavera MD Physical Therapy Treatment Note M2 PT-IP Current Condition Start: 10/14/21 11:49 Freq: NEEDED Status: Active Protocol: Document 10/15/21 11:00 BC (Rec: 10/15/21 11:09 [id number]) Physical Therapy Current Condition Current Condition Evaluation Date 10/14/21 Treatment Diagnosis s/p L1-2, L2-3 TLIF; difficulty in walking M3 PT-IP Subjective Start: 10/14/21 11:49 Freq: NEEDED Status: Active Protocol: Document 10/15/21 11:00 BC (Rec: 10/15/21 11:09 [id number]) Subjective Physical Therapy Visit Type Type Treatment Note Visit Start Time 10:20 Visit Stop Time 10:55 Total Visit Minutes 31 Number of AIRPORT SCREENER Visits 0 Physical Therapy Visit Comments Patient Comments pt is agreeable to do PT Patient Goals to walk Therapy Pain Assessment Pain When Pain Assessed At Rest Pain Present Pain Present Pain Reported FLACC Pain Scale Face Occasional grimace/frown Legs Normal position; relaxed Activity Quiet, moves easily Cry No cry (awake or asleep) Consolability Content, relaxed FLACC Total 1 Location low back Intensity 7 Scale Used Numeric (0 - 10) Description Spasm Pain Management Techniques Apply Cold,Distraction, Modification of Treatment,Re- positioning,Timing of Activity with Medications Right Leg Intensity 2 Scale Used Numeric (0 - 10) Description Spasm M4 PT-IP Mobility and Gait Start: 10/14/21 11:49 Freq: NEEDED Status: Active Protocol: Document 10/15/21 11:00 BC (Rec: 10/15/21 11:09 [id number]) PT-Bed Mobility Assessment Rolling Type of Rolling Log Rolling Level of Assist Minimal Assistance Supine to Sit Supine to Sit Minimal Assistance Sit to Supine Sit to Supine Moderate Assistance Scooting Scooting to Edge of Bed Moderate Assistance PT-Transfer Assessment Sit to and From Stand Sit to and from Stand Minimal Assistance,1 Person Assistance,Use of Upper Extremities Equipment Transfer Assistive Device Gait Belt,Front Wheeled Walker Orthotic/Prosthetic Devices or Brace: No Transfers Transfer Destination Chair Transfer Technique Stand Step Pivot Transfer Ability Level of Assist Contact Guard Assistance,1 Person Assistance,Use of Upper Extremities Comments Mobility Comments BP supine: 154/55 sitting 146/ 54. Pt able to recall log roll technique without vc's. STS technique reviewed with focus on pushing through LE's vs all UE and lean forward as she transitions. Gait Assessment Gait Gait Assistance Required: Contact Guard Assist Distance (Feet) 30 Assistive Devices Assistive Device Gait Belt,Front Wheeled Walker Orthotic/Prosthetic Devices or Brace: No Gait Deviations General Gait Pattern Decreased Stride Length, Decreased Feet Clearance Factors Limiting Gait Function Factors Limiting Gait Function Decreased Activity Tolerance, Decreased Strength,Poor Balance Comments Gait Comments 30' x2 with seated rest break. Pt needing just CGA for safety. Namrata is slow and guarded. Slight imbalance with initial steps but no more than CGA to maintain balance. Stair Climbing Assessment Comments Stair Climbing Comments NA at this time PT-Balance Assessment Sitting Balance and Reactions Static Sitting Balance Ability Good Dynamic Sitting Balance Ability Good Standing Balance and Reactions Static Standing Balance Ability Fair Dynamic Standing Balance Ability Fair Device Used FWW M5 PT-IP Objective Assessments Start: 10/14/21 11:49 Freq: NEEDED Status: Active Protocol: Document 10/14/21 09:00 AB (Rec: 10/14/21 12:08 AB [id number]) Orientation Orientation/Cognition Level of Alertness Alert Orientation Name,Place,Situation Language Function Ability No Deficits Noted Safety Awareness Understands Safety Issues Memory Description No Deficits Noted Gross Range of Motion Lower Extremity ROM Assessment Within Functional Limits Strength Lower Extremity Strength Assessment Bilaterally Impaired Hip 3+/5 Knee 3+/5 Sensation Assessment Sensation Light Touch Impaired Proprioception (Position) Impaired Sensation Description Numbness,Tingling Comments Sensation Comments pt has chronic numbness on BLE Muscle Tone Muscle Tone WNL Yes M6 PT-IP Treatment Start: 10/14/21 11:49 Freq: NEEDED Status: Active Protocol: Document 10/15/21 11:00 BC (Rec: 10/15/21 11:09 BC [id number]) Physical Therapy Treatment Education Education Provided Precautions,Safety Other Treatments Other Treatment Performed Educated on SNF vs home with HHPT. Pt requests SNF. Discussed rehab for focus on regaining functional mobility. Reviewed log roll and spinal precautions. M7 PT-IP Assessment and Plan Start: 10/14/21 11:49 Freq: NEEDED Status: Active Protocol: Document 10/15/21 11:00 (Rec: 10/15/21 11:09 [id number]) PT Summary Assessment and Plan Potential Rehabilitation Potential Good Status of Condition at Evaluation Evolving Summary Impairments Pain,ROM,Strength,Balance, Coordination,Sensation,Bed Mobility,Transfers,Gait, Activity Tolerance Progress Towards Goals Progressing Toward Goals,Slow Progress due to Pain Assessment Summary Pt demonstrated great gains in mobility today. Prior to PT session she had transferred to [facility] with ns. She was motivated to attempt ambulation today. She was able to ambulate 30' x2 with need for rest break. Her assist with transfers have improved to min A. Pt does not have assist at home as she explains to me her spouse is a stroke survivor with hemiparesis and uses an a.d. himself. She states she does not feel safe d/c home and prefers d/c to snf for rehab to regain a higher level of functional mobility. Goals Bed Mobility Goal Minimal Assistance Transfer Goal Minimal Assistance,Front Wheeled Walker Gait Goal Minimal Assistance,Front Wheel Walker Gait Distance 50 Other Goals improve ambulation and transfers using fWW SBA, ambulation using FWW 125 ft SBA Days to Meet Goals 10 Frequency of Treatment Frequency Of Treatment Twice a Day Treatment Plan Physical Therapy Treatment Plan Bed Mobility Training,Transfer Training,Gait Training, Therapeutic Exercise,Balance Retraining,Post Op Education, Discharge Planning,Hot or Cold Pack,Neuromuscular Re-ed, Coordination Retraining,Manual Therapy Precautions Lumbar Precautions Log Roll,No Twisting,Limit Bending,Lifting Restriction of 10 lbs,Gait Belt above Incisional Area Recommendations To Nursing Amount of Assist Needed 2 Person Assist Discharge Recommendations PT Discharge Recommendations SNF Rehab Transportation Needs at Discharge Wheelchair/Cabulance
--- NOTE | 2021-10-15 11:29 | PM.PNPO.1 ---
Subjective Subjective Interval history: She is feeling better overall. Her headache is decreased. She is having some troubles mobilizing. She notes some itching on her back. Her chief complaint is back pain she does have some but fairly mild leg pain. She still has some light a mild lightheadedness when she is up it is not severe. Her headache is improved. Exam Vital Signs (past 8 hours): - 10/15/21 08:00 10/15/21 10:19 Temperature 98.4 F Pulse Rate 74 Respiratory Rate 18 Blood Pressure 142/51 H 142/51 H Pulse Oximetry 96 Oxygen Delivery Method Room Air Oxygen Flow Rate 0 Narrative Exam Narrative: She is oriented She is resting comfortably in bed, calfs are soft bilaterally she is able to fire toe flexors and extensors she does have some mild numbness in bilateral lower extremities, she was able to turn over with limited assistance, her dressing is dry she does not have a rash. She has focal tenderness to palpation along her lumbar spine Objective Labs Result Diagrams: 10/15/21 05:15 Labs: Laboratory Results - last 24 hr 10/15/21 05:15 Hgb 9.0 L Hct 26.6 L PFSH Medical History Anemia Anxiety Arthritis Asthma CHF (congestive heart failure) Depression Diabetes Facet arthropathy, lumbar Fibromyalgia Heart failure HTN (hypertension) Lumbar post-laminectomy syndrome Neuropathy CLAUDE on CPAP Pneumonia (2017) Sciatica Scoliosis due to degenerative disease of spine in adult patient Seasonal allergies Spinal stenosis TIA (transient ischemic attack) Surgical History H/O lumbosacral spine surgery History of arthroplasty of left knee History of arthroplasty of right knee History of carpal tunnel surgery of right wrist History of hysterectomy Hx of elbow surgery (2018) Hx of laminectomy (1969) Hx of lumbosacral spine surgery (2012) Hx of tonsillectomy Family History Father Lung cancer Mother Vascular dementia Sister Allergies Asthma Hypertension Vascular dementia Grandmother No problems noted. Social History household members: spouse Smoking Status: Never smoker alcohol intake: former Assessment & Plan Post-op Postoperative Procedures: Procedures Operation Date: 10/13/21 07:45 Actual Procedure Side Surgeon p L1-2 fusion , L2-3 TLIF with posterior instrumentation-Robot Jennifer Tavera MD Postoperative day: 2 Postoperative status: marginal pain control Postoperative status narrative: She is improving. She had a dural tear but her headache is improved. Postoperative plan: routine post-op care, ambulate and voiding trials Postoperative plan narrative: Renal work on mobilizing with physical therapy today. Were going to go ahead and take her Pascal out. She mentioned she did not have a bowel movement I told her that would likely be easier after we discontinue her Pascal. She is going to mobilize with physical therapy. Anticipate discharge to home tomorrow.
--- NOTE | 2021-10-15 14:12 | PT.IPTN ---
Current Diagnoses Spinal stenosis, lumbar region with neurogenic claudication (10/13/21) Postlaminectomy syndrome, not elsewhere classified (10/13/21) Surgery Performed Operation Date: 10/13/21 07:45 Actual Procedures p L1-2 fusion , L2-3 TLIF with posterior instrumentation-Robot - Jennifer Tavera MD Physical Therapy Treatment Note M2 PT-IP Current Condition Start: 10/14/21 11:49 Freq: NEEDED Status: Active Protocol: Document 10/15/21 14:04 BC (Rec: 10/15/21 14:12 [id number]) Physical Therapy Current Condition Current Condition Evaluation Date 10/14/21 Treatment Diagnosis s/p L1-2, L2-3 TLIF; difficulty in walking M3 PT-IP Subjective Start: 10/14/21 11:49 Freq: NEEDED Status: Active Protocol: Document 10/15/21 14:04 BC (Rec: 10/15/21 14:12 [id number]) Subjective Physical Therapy Visit Type Type Treatment Note Visit Start Time 13:05 Visit Stop Time 13:25 Total Visit Minutes 15 Number of ARCHITECTURE INTERN Visits 0 Physical Therapy Visit Comments Patient Comments pt is agreeable to do PT Therapy Pain Assessment Pain When Pain Assessed At Rest Pain Present Pain Present Pain Reported FLACC Pain Scale Cry Moans/whimpers/complains Location low back Intensity 5 Scale Used Numeric (0 - 10) Description Spasm Pain Management Techniques Apply Cold,Distraction,Re- positioning,Timing of Activity with Medications Right Leg Scale Used Numeric (0 - 10) M4 PT-IP Mobility and Gait Start: 10/14/21 11:49 Freq: NEEDED Status: Active Protocol: Document 10/15/21 14:04 BC (Rec: 10/15/21 14:12 [id number]) PT-Bed Mobility Assessment Scooting Scooting to Edge of Bed Minimal Assistance PT-Transfer Assessment Sit to and From Stand Sit to and from Stand Contact Guard Assistance,1 Person Assistance,Use of Upper Extremities Equipment Transfer Assistive Device Gait Belt,Front Wheeled Walker Orthotic/Prosthetic Devices or Brace: No Transfers Transfer Destination Chair,Bedside Commode Transfer Technique Stand Step Pivot Transfer Ability Level of Assist Contact Guard Assistance,1 Person Assistance,Use of Upper Extremities Comments Mobility Comments BP sitting 127/44. Pt sitting BSC with EVENT MARKETING REPRESENTATIVE assist. Transfer back to EOB and to recliner requirirng CGA for safety. Transfers are slow due to guarded pain. Cues still required for safe hand placement and enough anterior lean (nose over toes). Gait Assessment Gait Gait Assistance Required: Contact Guard Assist Distance (Feet) 30 Assistive Devices Assistive Device Gait Belt,Front Wheeled Walker Orthotic/Prosthetic Devices or Brace: No Gait Deviations General Gait Pattern Decreased Stride Length, Decreased Feet Clearance Factors Limiting Gait Function Factors Limiting Gait Function Decreased Activity Tolerance, Decreased Strength,Poor Balance Comments Gait Comments 30' x1 Namrata slower this PM due to fatigue. Pt states she is purposely slow to be cautious of not moving too quickly. Stair Climbing Assessment Comments Stair Climbing Comments NA at this time PT-Balance Assessment Sitting Balance and Reactions Static Sitting Balance Ability Good Dynamic Sitting Balance Ability Good Standing Balance and Reactions Static Standing Balance Ability Fair Dynamic Standing Balance Ability Fair Device Used FWW M5 PT-IP Objective Assessments Start: 10/14/21 11:49 Freq: NEEDED Status: Active Protocol: Document 10/14/21 09:00 AB (Rec: 10/14/21 12:08 AB [id number]) Orientation Orientation/Cognition Level of Alertness Alert Orientation Name,Place,Situation Language Function Ability No Deficits Noted Safety Awareness Understands Safety Issues Memory Description No Deficits Noted Gross Range of Motion Lower Extremity ROM Assessment Within Functional Limits Strength Lower Extremity Strength Assessment Bilaterally Impaired Hip 3+/5 Knee 3+/5 Sensation Assessment Sensation Light Touch Impaired Proprioception (Position) Impaired Sensation Description Numbness,Tingling Comments Sensation Comments pt has chronic numbness on BLE Muscle Tone Muscle Tone WNL Yes M6 PT-IP Treatment Start: 10/14/21 11:49 Freq: NEEDED Status: Active Protocol: Document 10/15/21 14:04 BC (Rec: 10/15/21 14:12 [id number]) Physical Therapy Treatment Education Education Provided Precautions,Safety Other Treatments Other Treatment Performed Educated on benefit of sitting OOB in chair. Pt agreeable. Educated and demo'd mechanics of sit to stand with anterior lean to prevent posterior LOB and unnecessary lumbar muscle activation to correct posterior LOB. Educated on difference of FWW vs 4WW. Pt has 4WW and would like to use this type when she discharges. M7 PT-IP Assessment and Plan Start: 10/14/21 11:49 Freq: NEEDED Status: Active Protocol: Document 10/15/21 14:04 BC (Rec: 10/15/21 14:12 [id number]) PT Summary Assessment and Plan Potential Rehabilitation Potential Good Status of Condition at Evaluation Evolving Summary Impairments Pain,ROM,Strength,Balance, Coordination,Sensation,Bed Mobility,Transfers,Gait, Activity Tolerance Progress Towards Goals Progressing Toward Goals,Slow Progress due to Pain Assessment Summary Pt remained consistent today with level of assist ranging from min to CGA. She is transferring with nursing support to [facility] 2x today. She is using FWW properly but needs cues for hand placement with transfers. Pt's functional mobility remains limited by activity tolerance and pain. 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 Goals Bed Mobility Goal Minimal Assistance Transfer Goal Standby Assistance,Front Wheeled Walker Gait Goal Contact Guard Assistance,Front Wheel Walker Gait Distance 50 Other Goals improve ambulation and transfers using fWW SBA, ambulation using FWW 125 ft SBA Days to Meet Goals 10 Frequency of Treatment Frequency Of Treatment Twice a Day Treatment Plan Physical Therapy Treatment Plan Bed Mobility Training,Transfer Training,Gait Training, Therapeutic Exercise,Balance Retraining,Post Op Education, Discharge Planning,Hot or Cold Pack,Neuromuscular Re-ed, Coordination Retraining,Manual Therapy Precautions Lumbar Precautions Log Roll,No Twisting,Limit Bending,Lifting Restriction of 10 lbs,Gait Belt above Incisional Area Recommendations To Nursing Amount of Assist Needed 1 Person Assist Discharge Recommendations PT Discharge Recommendations SNF Rehab Transportation Needs at Discharge Wheelchair/Cabulance
[2021-10-15] MEDS: SENNOSIDES 8.6 MG TABLET 17.2 MG PO (21:07)
[2021-10-15] MEDS: PRAMIPEXOLE 0.25 MG TABLET 0.75 MG PO (21:07)
[2021-10-15] MEDS: LABETALOL 100 MG TABLET 200 MG PO (21:57)
[2021-10-15] MEDS: BISACODYL 10 MG SUPP PR (21:58)
[2021-10-16] VITALS (11 sets, daily range): BP systolic 137–158; BP diastolic 41–76; PULSE 74–118; RESP 16–18; TEMP 36.4–37.4; O2SAT 91–97
[2021-10-16] MEDS: OXYCODONE IR 5 MG TABLET 10 MG PO ×6 (04:01→23:02)
[2021-10-16] MEDS: DOCUSATE 100 MG CAPSULE PO ×2 (08:24→20:21)
[2021-10-16] MEDS: MAGNESIUM OXIDE 400 MG TABLET PO (08:24)
[2021-10-16] MEDS: METFORMIN HCL 500 MG TABLET PO ×2 (08:24→17:31)
[2021-10-16] MEDS: POTASSIUM CHLORIDE 10 MEQ TAB PO ×2 (08:24→20:21)
[2021-10-16] MEDS: LORATADINE 10 MG TABLET PO (08:25)
[2021-10-16] MEDS: GABAPENTIN 300 MG CAPSULE PO ×3 (08:26→20:21)
--- NOTE | 2021-10-16 10:20 | PT-IP ANOTE ---
Attempted to see pt this AM, pt reporting wooziness as well as intermittent feeling hot and cold and sweating. Pts BP: 126/30 supine, will check back in PM. Able to recall spinal precautions. No charge.
--- NOTE | 2021-10-16 11:25 | CM.DPC ---
DCP/continued: Reviewed chart. Received call from Melina at [facility] whom inidcates that she has received authorizaion for patient to go to [facility] when medically stable. Currently d/c anticipated for tomorrow 10-17-21. CARDIOVASCULAR SPECIALIST met with patient to confirm d/c plan. Patient reports that she is aware and agreeable to plan. P: D/C to [facility] when medically stable. CECILY
--- NOTE | 2021-10-16 12:12 | PT.IPTN ---
Current Diagnoses Spinal stenosis, lumbar region with neurogenic claudication (10/13/21) Postlaminectomy syndrome, not elsewhere classified (10/13/21) Surgery Performed Operation Date: 10/13/21 07:45 Actual Procedures p L1-2 fusion , L2-3 TLIF with posterior instrumentation-Robot - Jennifer Tavera MD Physical Therapy Treatment Note M2 PT-IP Current Condition Start: 10/14/21 11:49 Freq: NEEDED Status: Active Protocol: Document 10/15/21 14:04 BC (Rec: 10/15/21 14:12 BC [id number]) Physical Therapy Current Condition Current Condition Evaluation Date 10/14/21 Treatment Diagnosis s/p L1-2, L2-3 TLIF; difficulty in walking M3 PT-IP Subjective Start: 10/14/21 11:49 Freq: NEEDED Status: Active Protocol: Document 10/16/21 12:02 KS (Rec: 10/16/21 12:20 KS [id number]) Subjective Physical Therapy Visit Type Type Treatment Note Visit Start Time 12:02 Visit Stop Time 12:12 Total Visit Minutes 10 Number of SHOWER DOORS AND PANELS FABRICATOR Visits 1 Physical Therapy Visit Comments Patient Comments pt is agreeable to do PT M4 PT-IP Mobility and Gait Start: 10/14/21 11:49 Freq: NEEDED Status: Active Protocol: Document 10/16/21 12:02 KS (Rec: 10/16/21 12:20 KS [id number]) PT-Transfer Assessment Comments Mobility Comments Pt in chair and BP 127/41 reporting increased fatigue, but agreeable to LE exercises in chair. Pt completed 2x10 bilateral ankle pumps, quad sets, and glute sets. She began to nod off and refused further exercise due to fatigue and lunch arrival. Pt left in chair w/ all needs in reach. M5 PT-IP Objective Assessments Start: 10/14/21 11:49 Freq: NEEDED Status: Active Protocol: Document 10/14/21 09:00 AB (Rec: 10/14/21 12:08 AB [id number]) Orientation Orientation/Cognition Level of Alertness Alert Orientation Name,Place,Situation Language Function Ability No Deficits Noted Safety Awareness Understands Safety Issues Memory Description No Deficits Noted Gross Range of Motion Lower Extremity ROM Assessment Within Functional Limits Strength Lower Extremity Strength Assessment Bilaterally Impaired Hip 3+/5 Knee 3+/5 Sensation Assessment Sensation Light Touch Impaired Proprioception (Position) Impaired Sensation Description Numbness,Tingling Comments Sensation Comments pt has chronic numbness on BLE Muscle Tone Muscle Tone WNL Yes M6 PT-IP Treatment Start: 10/14/21 11:49 Freq: NEEDED Status: Active Protocol: Document 10/16/21 12:02 KS (Rec: 10/16/21 12:20 KS [id number]) Physical Therapy Treatment Exercises Exercises Ankle Pumps,Gluteal Sets,Quad Sets Education Education Provided Precautions,Safety M7 PT-IP Assessment and Plan Start: 10/14/21 11:49 Freq: NEEDED Status: Active Protocol: Document 10/16/21 12:02 KS (Rec: 10/16/21 12:20 KS [id number]) PT Summary Assessment and Plan Potential Rehabilitation Potential Good Status of Condition at Evaluation Evolving Summary Impairments Pain,ROM,Strength,Balance, Coordination,Sensation,Bed Mobility,Transfers,Gait, Activity Tolerance Progress Towards Goals Progressing Toward Goals,Slow Progress due to Pain Assessment Summary Pt remains limited by symptomatic low BP, pain, and fatigue. Able to complete LE exercises to promote blood flow and strengthening but falling asleep towards end of exercises. She will benefit from SNF to improve strength, activity tolerance, and functional mobility independence. Goals Bed Mobility Goal Minimal Assistance Transfer Goal Standby Assistance,Front Wheeled Walker Gait Goal Contact Guard Assistance,Front Wheel Walker Gait Distance 50 Other Goals improve ambulation and transfers using fWW SBA, ambulation using FWW 125 ft SBA Days to Meet Goals 10 Frequency of Treatment Frequency Of Treatment Twice a Day Treatment Plan Physical Therapy Treatment Plan Bed Mobility Training,Transfer Training,Gait Training, Therapeutic Exercise,Balance Retraining,Post Op Education, Discharge Planning,Hot or Cold Pack,Neuromuscular Re-ed, Coordination Retraining,Manual Therapy Precautions Lumbar Precautions Log Roll,No Twisting,Limit Bending,Lifting Restriction of 10 lbs,Gait Belt above Incisional Area Recommendations To Nursing Amount of Assist Needed 1 Person Assist Discharge Recommendations PT Discharge Recommendations SNF Rehab Transportation Needs at Discharge Wheelchair/Cabulance
--- NOTE | 2021-10-16 15:27 | P.CONS_ITS ---
History of Present Illness Consult details Date Patient Seen: 10/16/21 Time Patient Seen: 14:00 Chief complaint: TLIF *OPB* Narrative: Ms. Kinney is a 81W with PMH HTN, CHFpEF, DM who presents for elective surgery due to spinal stenosis. She went to the OR on 10/13. She has had intermittent dizziness since then. This is worsened with getting up. She is on multiple anti- hypertensives including amlodipine, hydralazine, losartan, and labetalol. She is also on bumex. Medicine is consulted for low diastolic blood pressures from 30- 50. When I saw her she is not complaining of dizziness, she has no chest pain, vision changes, shorntess of breath. Her blood pressure medications have been held Meds Home Medications and Allergies Home Medications Medication Instructions Recorded Confirmed Type bumetanide 1 mg tablet 1 mg PO DAILY 01/11/20 10/13/21 History gabapentin 300 mg capsule 300 mg PO TID 01/11/20 10/13/21 History hydralazine 25 mg tablet 25 mg PO TID 01/11/20 10/13/21 History labetalol 200 mg tablet 200 mg PO BID 01/11/20 10/13/21 History losartan 100 mg tablet 100 mg PO DAILY 01/11/20 10/13/21 History magnesium oxide 1 tab PO DAILY 01/11/20 10/13/21 History metformin 500 mg tablet 500 mg PO BID 01/11/20 10/13/21 History potassium chloride 10 mEq 10 meq PO BID 01/11/20 10/13/21 History tablet,extended release pramipexole 0.75 mg tablet 0.75 mg PO DAILY 01/11/20 10/13/21 History tizanidine 2 mg capsule 2 mg PO BID PRN 01/11/20 10/13/21 History tramadol 50 mg tablet 75 mg PO Q6H PRN 01/11/20 10/13/21 History diclofenac sodium 75 mg See Rx Instructions .ROUTE 06/20/20 10/13/21 Rx tablet,delayed release .COMPLEX #60 tab amlodipine 5 mg tablet 5 mg PO BEDTIME 10/04/21 10/13/21 History loratadine 10 mg tablet 10 mg PO DAILY 10/04/21 10/13/21 History (Jaja) Allergies Allergy/AdvReac Type Severity Reaction Status Date / Time No Known Drug Allergies Allergy Verified 10/13/21 06:58 Review of Systems Review of Systems Narrative: 14 systems reviewed and negative aside from what is noted in HPI Exam Vital Signs (past 8 hours): - 10/16/21 08:00 10/16/21 08:24 10/16/21 08:26 Temperature 99.3 F Pulse Rate 118 H 80 80 Respiratory Rate 16 Blood Pressure 156/58 H 152/50 H 152/50 H Pulse Oximetry 93 10/16/21 08:27 10/16/21 12:00 Temperature 98.9 F Pulse Rate 80 74 Respiratory Rate 16 Blood Pressure 152/50 H 137/41 L Pulse Oximetry 95 Oxygen Delivery Method Room Air Oxygen Flow Rate 0 Narrative Exam Narrative: GEN: no acute distress HEENT: moist mucous membranes, PERRL NECK: trachea midline, no JVD CV: regular rate and rhythm, no murmurs PULM: clear bilaterally, no wheezes, rhonchi, rales ABD: soft, nontender, nondistended, no organomegaly EXT: warm and well perfused with no edema NEURO: awake, alert, no focal deficits Objective Labs Result Diagrams: 10/15/21 05:15 [facility] Medical History Anemia Anxiety Arthritis Asthma CHF (congestive heart failure) Depression Diabetes Facet arthropathy, lumbar Fibromyalgia Heart failure HTN (hypertension) Lumbar post-laminectomy syndrome Neuropathy CLAUDE on CPAP Pneumonia (2017) Sciatica Scoliosis due to degenerative disease of spine in adult patient Seasonal allergies Spinal stenosis TIA (transient ischemic attack) Surgical History H/O lumbosacral spine surgery History of arthroplasty of left knee History of arthroplasty of right knee History of carpal tunnel surgery of right wrist History of hysterectomy Hx of elbow surgery (2018) Hx of laminectomy (1969) Hx of lumbosacral spine surgery (2012) Hx of tonsillectomy Family History Father Lung cancer Mother Vascular dementia Sister Allergies Asthma Hypertension Vascular dementia Grandmother No problems noted. Social History household members: spouse Tobacco & Substance Use Smoking Status: Never smoker alcohol intake: former Assessment & Plan Assessment & Plan narrative: Ms. Kinney was admitted for elective surgery for spinal stenosis. Consult requested to help manage blood pressure. 1. Hypertension -she is currently intermittently, and not taking her blood pressure medications in hospital, her blood pressure has been controlled -check orthostatic and give IV fluids -hold off on bumex for now, until orthostatics checked -ok to continue to hold all blood pressure medications until dizziness improves or blood pressure becomes significantly elevated, systolic >160 -otherwise no further workup needed CODE: Full Proxy: Edgardo Kinney, spouse I have utilized all available resources to reconcile the patient's home medications. Patient is medically stable for a medicine perspective. She is pending dispo with orthopedic surgery. Medicine will sign off. Time Spent With Patient Critical Care time: I spent a total of [] minutes of critical care time on this patient's care today; this time is exclusive of procedural time.
--- NOTE | 2021-10-16 17:08 | PM.PNPO.1 ---
Subjective Subjective Date Patient Seen: 10/16/21 Time Patient Seen: 07:20 Interval history: Patient is complaining of moderate to severe low back pain this morning. She is just waking up. She notes she has baseline right-sided numbness and tingling. She is still having some headaches and dizziness from her dural tear, although these are decreasing. Overall she is feeling pretty well, the plan is to discharge to SNF. Exam Vital Signs (past 8 hours): - 10/16/21 12:00 10/16/21 16:09 Temperature 98.9 F Pulse Rate 74 74 Respiratory Rate 16 Blood Pressure 137/41 L 137/41 L Pulse Oximetry 95 Oxygen Delivery Method Room Air Oxygen Flow Rate 0 Narrative Exam Narrative: Pleasant 81-year-old female, resting comfortably in bed, no acute distress. Dressing is clean, dry, intact. Bilateral lower extremity: Motor functions are grossly intact, sensation is decreased right as compared to left, which is her baseline, calves are soft and nontender to palpation. Objective Labs Result Diagrams: 10/15/21 05:15 [facility] Medical History Anemia Anxiety Arthritis Asthma CHF (congestive heart failure) Depression Diabetes Facet arthropathy, lumbar Fibromyalgia Heart failure HTN (hypertension) Lumbar post-laminectomy syndrome Neuropathy CLAUDE on CPAP Pneumonia (2016) Sciatica Scoliosis due to degenerative disease of spine in adult patient Seasonal allergies Spinal stenosis TIA (transient ischemic attack) Surgical History H/O lumbosacral spine surgery History of arthroplasty of left knee History of arthroplasty of right knee History of carpal tunnel surgery of right wrist History of hysterectomy Hx of elbow surgery (2018) Hx of laminectomy (1969) Hx of lumbosacral spine surgery (2012) Hx of tonsillectomy Family History Father Lung cancer Mother Vascular dementia Sister Allergies Asthma Hypertension Vascular dementia Grandmother No problems noted. Social History household members: spouse Smoking Status: Never smoker alcohol intake: former Assessment & Plan Post-op Postoperative Procedures: Procedures Operation Date: 10/13/21 07:45 Actual Procedure Side Surgeon p L1-2 fusion , L2-3 TLIF with posterior instrumentation-Robot Jennifer Tavera MD Postoperative status narrative: Status post L1-2 fusion, L2-3 TLIF -L2-3 intraoperative dural tear -hypertension Postoperative plan narrative: Postoperative plan narrative: -mobilize with PT. Weightbearing as tolerated front wheel walker. Limit bending, lifting, twisting x6 weeks -continue to monitor for her dural tear including any lightheadedness, dizziness or headaches. -a hospitalist consult per Dr. Roldan regarding her blood pressure: Systolic in the 150 range, diastolic 30-50. Her blood pressure medications have been held. -continue with multimodal pain management -DC to SNF tomorrow, pending bed placement.
[2021-10-16] MEDS: SENNOSIDES 8.6 MG TABLET 17.2 MG PO (20:21)
[2021-10-16] MEDS: MAGNESIUM HYDROXIDE 30 ML UDC PO (20:21)
[2021-10-16] MEDS: PRAMIPEXOLE 0.25 MG TABLET 0.75 MG PO (20:21)
[2021-10-16] MEDS: FLEETS ENEMA 1 EACH PR (23:02)
[2021-10-17] VITALS: BP 133/42; BP 134/51; BP 167/69; PULSE 82; PULSE 84; PULSE 86; RESP 18; TEMP 36.7; O2SAT 95
[2021-10-17] MEDS: TIZANIDINE 4 MG TABLET 2 MG PO (01:06)
[2021-10-17] MEDS: OXYCODONE IR 5 MG TABLET 10 MG PO ×3 (02:34→11:35)
[2021-10-17 05:00] VITALS: BP 130/45; PULSE 71; RESP 18; TEMP 36.3; O2SAT 95
--- NOTE | 2021-10-17 07:20 | PM.DS.1 ---
History of Present Illness History of Present Illness Date Patient Seen: 10/17/21 Time Patient Seen: 07:23 Chief complaint: TLIF *OPB* Narrative: Patient is complaining of moderate to severe low back pain this morning. She is on tramadol at baseline at home. In she is also complaining of mild lightheadedness when she sits up. Her blood pressure systolic has been 1 30-150, diastolic 32-75. BP meds have been held. She denies any new numbness or tingling, she has baseline hypersensitivity and bilateral feet. Overall she is feeling well like to be discharged to SNF today Discharge Providers Provider Date of admission: 10/13/21 06:23 Discharge Date: 10/17/21 Primary care physician: Tresa Stevens PA-C Consults: 10/13/21 13:58 Consult to Occupational Therapy Evaluate & Treat Comment: Physician Instructions: Evaluate and treat Consult to Physical Therapy Evaluate & Treat Comment: Physician Instructions: Evaluate and Treat 10/13/21 14:00 Consult to Respiratory Therapy Evaluate & Treat Comment: 81F s/p TLIF L1-3,CLAUDE+CPAP,BMI 36,mod-pers asthma Physician Instructions: Evaluate and treat 10/16/21 17:06 Consult to Hospitalist Service Routine Comment: Consulting Provider: Jaspal Huston Reason for consultation: blood pressure management Has provider been notified: Yes Discharge provider: Miguelina Nielsen PA-C Summary Hospital Course Discharge Diagnosis: 1. L1-2, L2-3 spinal stenosis with neurogenic claudication 2. Lumbar spondylolisthesis 3. L2-3 small intraop dural tear 4. Hypertension Hospital Course: Operative Date/Time/Diagnoses Date of procedure: 10/13/21 Time of procedure: 07:45 Procedure & Clinicians Procedure: 1. L2-3 Postero-lateral and posterior interbody fusion 2. L2-3 interbody cage placement. 3. L1-2, L2-3 decompressive laminectomy with bilateral facetecomies 4. L1-2, L2-3 Posterior segmental instrumentation 5. L1-2 posterolateral fusion 6. Rowan of bone marrow from iliac crest 7. Utilization of microsurgical technique and operating microscope 8. Utilization of [employer] robotic assisted surgery Same procedure as scheduled: Yes Indications: Patient has been having chronic back pain and worsening lumbar radiculopathy. Patient failed multiple conservative management with worsening pain weakness and numbness in her lower extremity.? Patient has been having difficulty performing activity of daily living.? After discussing risks benefits of treatment options, patient elected proceed with surgery. Surgeon: Jennifer Tavera Complaint Adjuster: Miguelina Nielsen Click Yes if Unassisted: No Anesthesia Type: General Operative Notes Closure Type: primary Specimen(s): none sent Prosthetic devices, grafts, tissues, transplants, or devices: Globus CREO MIS screws, Rise cage Applied: catheter Estimated Blood Loss (mL): 100 Blood products transfused: none Status at Discharge Cognitive/behavioral status at discharge: oriented Functional status at discharge: uses cane/walker Overall status at discharge: patient is progressing back to baseline Exam Vital Signs (past 8 hours): - 10/17/21 00:00 10/17/21 05:00 Temperature 98.0 F 97.3 F L Pulse Rate 84 71 Pulse Rate [Orthostatic Lying] 82 Pulse Rate [Orthostatic Sitting] 86 Pulse Rate [Orthostatic Standing] 84 Respiratory Rate 18 18 Blood Pressure 134/51 L 130/45 L Blood Pressure [Orthostatic Lying] 133/42 L Blood Pressure [Orthostatic Sitting] 167/69 H Blood Pressure [Orthostatic Standing] 134/51 L Pulse Oximetry 95 95 Oxygen Delivery Method Room Air Oxygen Flow Rate 0 Narrative Exam Narrative: Pleasant 81-year-old female, resting comfortably in bed, no acute distress. Dressing is clean, dry, intact. Bilateral lower extremity: Motor functions are grossly intact, sensation is-she is somewhat hypersensitive to light touch, calves are soft and nontender to palpation. Objective Labs Result Diagrams: 10/15/21 05:15 [facility] Medical History Anemia Anxiety Arthritis Asthma CHF (congestive heart failure) Depression Diabetes Facet arthropathy, lumbar Fibromyalgia Heart failure HTN (hypertension) Lumbar post-laminectomy syndrome Neuropathy CLAUDE on CPAP Pneumonia (2017) Sciatica Scoliosis due to degenerative disease of spine in adult patient Seasonal allergies Spinal stenosis TIA (transient ischemic attack) Surgical History H/O lumbosacral spine surgery History of arthroplasty of left knee History of arthroplasty of right knee History of carpal tunnel surgery of right wrist History of hysterectomy Hx of elbow surgery (2018) Hx of laminectomy (1969) Hx of lumbosacral spine surgery (2013) Hx of tonsillectomy Family History Father Lung cancer Mother Vascular dementia Sister Allergies Asthma Hypertension Vascular dementia Grandmother No problems noted. Social History household members: spouse Smoking Status: Never smoker alcohol intake: former Discharge Assessment & Plan Assessment and Plan Assessment: Status post L1-2 fusion, L2-3 TLIF -L2-3 small intraoperative dural tear -hypertension Plan of Treatment: -mobilize with PT.? Weightbearing as tolerated front wheel walker.? Limit bending, lifting, twisting x6 weeks? -continue to monitor for her dural tear including any lightheadedness, dizziness or headaches. ?This could also be related to her blood pressure. -hospitalist recommends holding BP meds until systolic is greater than 160; hospital course: Systolic in the 150 range, diastolic 30-50.? Her blood pressure medications have been held. ? -continue with multimodal pain management? -DC to SNF today Discharge Plan Discharge Plan Patient Disposition: SNF Discharge orders & Medications Prescriptions: New acetaminophen 500 mg capsule 500 mg PO Q4H MDD Max 3000 mg per day PRN (Reason: Pain, Mild (1-3)) Qty: 90 0RF docusate sodium 100 mg Capsule 100 mg PO BID PRN (Reason: Constipation from narcotic pain meds) Qty: 30 0RF hydroxyzine pamoate 25 mg Capsule 25 mg PO Q4HR PRN (Reason: muscle spasm/pain/nausea) Qty: 30 0RF oxycodone 5 mg Tablet See Rx Instructions .ROUTE .COMPLEX PRN (Reason: Pain, Severe (7-10)) Qty: 42 0RF Rx Instructions: Take 1-2 tablets by mouth every 4 hours as needed for moderate to severe postoperative pain Continued diclofenac sodium 75 mg tablet,delayed release (DR/EC) See Rx Instructions .ROUTE .COMPLEX Qty: 60 2RF Dose Instruction: TAKE 1 TABLET BY MOUTH TWICE DAILY Rx Instructions: TAKE 1 TABLET BY MOUTH TWICE DAILY loratadine [Allerclear] 10 mg Tablet 10 mg PO DAILY 0RF bumetanide 1 mg tablet 1 mg PO DAILY 0RF gabapentin 300 mg capsule 300 mg PO TID 0RF Rx Instructions: 3 tabs in AM, 2 mid day, 3 PM hydralazine 25 mg tablet 25 mg PO TID 0RF labetalol 200 mg tablet 200 mg PO BID 0RF losartan 100 mg tablet 100 mg PO DAILY 0RF metformin 500 mg tablet 500 mg PO BID 0RF potassium chloride 10 mEq tablet extended release 10 meq PO BID 0RF pramipexole 0.75 mg tablet 0.75 mg PO DAILY 0RF tizanidine 2 mg capsule 2 mg PO BID PRN (Reason: Pain) 0RF magnesium oxide 1 tab PO DAILY 0RF Changed amlodipine 5 mg Tablet 5 mg PO BEDTIME PRN (Reason: HTN) Qty: 0 0RF tramadol 50 mg tablet See Rx Instructions .ROUTE .COMPLEX PRN (Reason: Pain) Qty: 42 0RF Rx Instructions: Take 1-2 tablets by mouth every 6 hours as needed for [id number] postoperative pain Follow up/Referrals: Tresa Stevens PA-C [Primary Care Provider] - Jennifer Tavera MD [Physician] - (10-14 days for postoperative visit) Discharge Health Status Health Concerns: Please hold BP meds until systolic >160 Diet/Activity/Treatments Diet: Carb-consistent/Diabetic Other treatments: Medications: -OTC Tylenol 500 mg 1 tablet every 4 hours as needed for pain/fever. Max 6 tablets per day. -Oxycodone 5 mg take 1-2 tablets every 4 hours as needed for moderate-severe pain (narcotic pain medication). -As needed medications: -Ducolax and /or MiraLax as needed for constipation from narcotic pain medications. -Pepcid AC as needed for stomach upset. -Vistaril (hydroxyine) 25mg 1 tab every 4 hours as needed for spasms/pain/nausea. Dressing/Wound care: -Keep dressing in place until postoperative follow-up office visit. -Okay to shower. Keep wound out of direct water stream. Can use PressNSeal plastic wrap to protect from shower stream. No soaking or submerging until all the scabs fall off (approximately 6 weeks). -Please call the office if dressing becomes wet, soiled, or saturated. Activities: -Limit bending, lifting, twisting x6 weeks. No deep bending (more than 90 degrees) or twisting at the waist. No lifting > 20 pounds. -Walk frequently. -Weight-bearing as tolerated. Use front wheeled walker, and progress to cane when safe. -Continue with home exercises as directed by your physical therapist. -Ice your incision as needed for pain/inflammation/swelling. Protect your skin with a folded pillowcase. Follow-up: -Follow-up with your surgeon or PA in the office in 10-14 days after surgery. -Follow-up with your surgeon 6 weeks postoperatively. Call the office if you have chest pain, shortness of breath, significant swelling that will not resolve with elevating, fever over 101?, significantly worsening pain. [facility]: [phone] Skin/Wound/Dressing Care Report to your healthcare provider any signs of infection, such as:: chills, fever, night sweats, unusual drainage and unusual redness [facility] Reason for rehabilitation: Post-operative therapy Rehab type: Physical therapy and Occupational therapy Visit Report/Discharge Packet Instructions: DI for Prescription Opioid Use, DI for Transforaminal Lumbar Interbody Fusion Stand Alone Forms: Surgery Discharge Discharge Data Primary Care Provider: Tresa Stevens
[2021-10-17] MEDS: METFORMIN HCL 500 MG TABLET PO (08:06)
[2021-10-17] MEDS: BUMETANIDE 1 MG TABLET PO (08:06)
[2021-10-17] MEDS: GABAPENTIN 300 MG CAPSULE PO (08:06)
[2021-10-17] MEDS: LORATADINE 10 MG TABLET PO (08:06)
[2021-10-17] MEDS: MAGNESIUM OXIDE 400 MG TABLET PO (08:06)
[2021-10-17] MEDS: POTASSIUM CHLORIDE 10 MEQ TAB PO (08:06)
[2021-10-17] MEDS: DOCUSATE 100 MG CAPSULE PO (08:06)
[2021-10-17 08:14] VITALS: BP 150/47; PULSE 75
[2021-10-17] MEDS: LABETALOL 100 MG TABLET 200 MG PO (08:14)
[2021-10-17] MEDS: LOSARTAN 50 MG TABLET 100 MG PO (08:14)
[2021-10-17 08:15] VITALS: BP 150/47; PULSE 75
[2021-10-17] MEDS: HYDRALAZINE 25 MG TABLET PO (08:15)
[2021-10-17 08:27] VITALS: BP 149/46; PULSE 78; RESP 18; TEMP 36.8; O2SAT 98
[2021-10-17 09:21] VITALS: BP 137/48; PULSE 74
[2021-10-17 09:28] LABS: COVID19 - ORCAS (NP or Nasal) Negative (Negative)
[2021-10-17] MEDS: hydrOXYzine pamoate 25 MG CAPSULE PO (10:32)
--- NOTE | 2021-10-17 11:26 | OT.IPNOTE ---
Attempted to see pt for OT treatment, pt waiting on her ride to go to SNF. ABle to talk to pt about expectations, goals, and what to expect while at SNF. Pt having good understanding. Pt still a bit groggy and states still not thinking as well as before. No charge.
--- NOTE | 2021-10-17 11:33 | PT-IP ANOTE ---
Attempted to see pt at 11:33, pt refused PT stating she would like to rest prior to d/c to SNF.
--- NOTE | 2021-10-17 11:51 | PC.NURSE ---
pt discharged. Pt wheeled out by facility transporter with all belongings, hard copy of scripts in folder given to transporter, pt agreeable.
--- NOTE | 2021-10-17 11:57 | CM.DPC ---
DCP/continued: Reviewed chart. Received notification from Melina at [facility] that authorization has been obtained for SNF. Orders obtained for SNF. Patient scheduled to be picked up around 11:30AM. Met with patient to update her on plan. Patient aware and agreeable. Patient reports that she will notify her spouse. GLOVE OPERATOR asked CADENCE/Julita to finalize discharge. P: [facility] today. JUAN Cuellar
== END 2021-10-17 11:54 | DRG 454 ==
LOC: OR 06:23 → AC 06:26
PROVIDERS: Physician Assistant; Admitting Provider Orthopaedic Surgery Orthopaedic Surgery of the Spine; PCP Student in an Organized Health Care Education/Training Program; Referring Provider Orthopaedic Surgery Orthopaedic Surgery of the Spine; Visit Provider Orthopaedic Surgery Orthopaedic Surgery of the Spine
PROC: 0SG00AJ Fusion of Lumbar Vertebral Joint with Interbody Fusion Device, Posterior Approach, Anterior Column, Open Approach (ICD-10-PCS; principal; 2021-10-13 07:45)
DX: M48.062 Spinal stenosis, lumbar region with neurogenic claudication (principal); G97.41 Accidental puncture or laceration of dura during a procedure; M54.16 Radiculopathy, lumbar region; M96.1 Postlaminectomy syndrome, not elsewhere classified; M43.16 Spondylolisthesis, lumbar region; I10 Essential (primary) hypertension; E11.9 Type 2 diabetes mellitus without complications; G47.33 Obstructive sleep apnea (adult) (pediatric); Z79.84 Long term (current) use of oral hypoglycemic drugs; Z20.822 Contact with and (suspected) exposure to COVID-19; M51.36 Other intervertebral disc degeneration, lumbar region; M47.816 Spondylosis without myelopathy or radiculopathy, lumbar region; Z98.1 Arthrodesis status
CPT/HCPCS: 36415; 72100; 72131; 76000; 82962; 85014; 85018; 87635; 97110; 97162; 97165; 97530; 97535; C9803; U0003; C9290; J0171; J0330; J0690; J1100; J1170; J1815; J2060; J2405; J2704; J3010

== ENCOUNTER → 2022-02-01 15:25 | Outpatient (CLI) | payer OTHER, SELFPAY ==
[2021-10-13 14:07] VITALS: BMI 35.7
[2022-02-01 16:14] LABS: BUN Creatinine Ratio 36.6 (6-22); Blood Urea Nitrogen 37 mg/dL (7-17); Calcium 8.9 mg/dL (8.4-10.2); Carbon Dioxide 32 mmol/L (22-32); Chloride 95 mmol/L (98-107); Estimated Glomerular Filt Rate 57 mL/min (>60); Glucose 109 mg/dL (80-110); HEMOLYSIS < 15 (0-50); Potassium 4.4 mmol/L (3.4-5.1); Sodium 136 mmol/L (137-145)
== END ==
PROVIDERS: PCP Student in an Organized Health Care Education/Training Program; Referring Provider Internal Medicine Cardiovascular Disease; Visit Provider Internal Medicine Cardiovascular Disease
DX: I50.32 Chronic diastolic (congestive) heart failure (principal)
CPT/HCPCS: 36415; 80048

== ENCOUNTER → 2022-04-07 12:01 | Outpatient (CLI) | payer OTHER, SELFPAY ==
[2021-10-13 14:07] VITALS: BMI 35.7
[2022-04-07 13:26] LABS: BUN Creatinine Ratio 29.7 (6-22); Blood Urea Nitrogen 27 mg/dL (7-17); Calcium 9.4 mg/dL (8.4-10.2); Carbon Dioxide 33 mmol/L (22-32); Chloride 94 mmol/L (98-107); Estimated Glomerular Filt Rate > 60 mL/min (>60); Glucose 94 mg/dL (80-110); HEMOLYSIS < 15 (0-50); Potassium 4.5 mmol/L (3.4-5.1); Sodium 136 mmol/L (137-145)
== END ==
PROVIDERS: PCP Student in an Organized Health Care Education/Training Program; Referring Provider Internal Medicine Cardiovascular Disease; Visit Provider Internal Medicine Cardiovascular Disease
DX: I50.32 Chronic diastolic (congestive) heart failure (principal)
CPT/HCPCS: 36415; 80048

== ENCOUNTER → 2022-05-02 12:55 | Outpatient (CLI) | payer OTHER, SELFPAY ==
[2021-10-13 14:07] VITALS: BMI 35.7
--- NOTE | 2022-05-15 14:22 | DIAB.FU ---
Follow-up Diabetes Education Assessment Name: Yomaira Kinney Date: 05/02/22 Time: 1-2p Dx: Type II Diabetes Yomaira presents for follow-up regarding T2DM. States her recent back surgery went well and is feeling more energy. Has completed PT. Has been dx with CHG and started on Jardiance for one month from cariologist. Reports difficulty with planning meals for her and her because he now has a mechanical soft diet and avoids bread and rice. Reports some intake of regular coke more recently. Also endorses up to 6c water daily. With Jardiance, recommended she increase her fluid intake. Anthropometrics: Ht: 4'11.5 Wt: 191# reported (up 4# since last visit 09/2021) Physical Activity: Limited PA currently but thinking about walking daily now that she is done with PT. Self-Monitoring Blood Glucose: None Diabetes Medications: 500 mg Metformin BID Jardiance 10mg Pertinent Labs: HgA1c 6.3% 03/2022 Past Medical History: (Last Reviewed 10/17/21 @ 07:25 by Miguelina Nielsen PA-C) Anemia Anxiety Arthritis Asthma CHF (congestive heart failure) Chronic diastolic CHF Depression Diabetes Facet arthropathy, lumbar Fibromyalgia Heart failure HTN (hypertension) Lumbar post-laminectomy syndrome Neuropathy Hands, feet CLAUDE on CPAP Pneumonia (2017) Sciatica R>L Scoliosis due to degenerative disease of spine in adult patient Seasonal allergies Spinal stenosis TIA (transient ischemic attack) Approx 20 years ago Intervention: This participant was very receptive. Provided appropriate educational handouts. Discussed the following topics: Medication management: Jaridance action Review of general nutrition recommendations and current intake Brainstormed some ideas that are mechanical soft friendly Physical activity plan Fluid recs, especially with SGLT2i Sugar beverages impact on BG Created SMART goals for patient self-care and success. Goals: Walk 4-5x per week safely Drink 8c water daily Avoid beverages with sugar Follow-up: JAISON FRASER follow-up in 4 weeks Megha Wells RDN, [facility] Certified Diabetes Care and Oxygen Furnace Operator P: [phone] Thank you for this referral
== END ==
PROVIDERS: PCP Student in an Organized Health Care Education/Training Program; Referring Provider Student in an Organized Health Care Education/Training Program; Visit Provider Student in an Organized Health Care Education/Training Program
DX: E11.9 Type 2 diabetes mellitus without complications (principal); Z71.3 Dietary counseling and surveillance; Z79.84 Long term (current) use of oral hypoglycemic drugs
CPT/HCPCS: G0108

== ENCOUNTER → 2022-06-12 14:02 | Outpatient (CLI) | payer OTHER, SELFPAY ==
[2021-10-13 14:07] VITALS: BMI 35.7
--- NOTE | 2022-06-21 17:21 | DIAB.FU ---
Addendum entered by Megha Wells 07/03/22 15:54: Phone call check-in: reports trying to take care of herself while is in SNF. Has been aiming for more fluids, veggie and fruit intake. Sitting for meals. Overall feels as though she is managing well. Encouraged her to call with any questions or follow-up needs. Original Note: Follow-up Diabetes Education Assessment Name: Yomaira Kinney Date: 06/12/22 Time: 215-305p Dx: Type II Diabetes Yomaira presents for DM follow-up. Reports a lot of stress recently with 's hospitalization. States her eating schedule has not been consistent and she is eating poorly. Does not feel like cooking. Eating out more often. Stress eating. For stress she watches TV, aims for adequate sleep, and talks with family. Tries to eat fruit once per day. Eating veggies once per day. Eating a lot of easy to prep meals, ie PB sandwich. Has been increasing water intake. Walking more. Has cut out soda. Feels she does not even sit for meals due to her schedule and stress. Anthropometrics: Ht: 4'11.5 Wt: 192# reported Physical Activity: Walking more inside. Self-Monitoring Blood Glucose: None Diabetes Medications: 500 mg Metformin BID Jardiance 10mg Pertinent Labs: HgA1c 6.3% 03/2022 Past Medical History: (Last Reviewed 10/17/21 @ 07:25 by Miguelina Nielsen PA-C) Anemia Anxiety Arthritis Asthma CHF (congestive heart failure) Chronic diastolic CHF Depression Diabetes Facet arthropathy, lumbar Fibromyalgia Heart failure HTN (hypertension) Lumbar post-laminectomy syndrome Neuropathy Hands, feet CLAUDE on CPAP Pneumonia (2017) Sciatica R>L Scoliosis due to degenerative disease of spine in adult patient Seasonal allergies Spinal stenosis TIA (transient ischemic attack) Approx 20 years ago Intervention: This participant was very receptive. Provided appropriate educational handouts. Discussed the following topics: Easy to prep veggies Stress management techniques Taking time for herself during meals Finding support resources Created SMART goals for patient self-care and success. Goals: Walk 4-5x per week safely- on hold Drink 8c water daily- met Avoid beverages with sugar - met Aim for veggies 2x per day- new Try to sit for meals- new Follow-up: JAISON FRASER follow-up via phone call in one month. Megha Wells RDN, [facility] Certified Diabetes Care and Vehicle Assembly Inspector P: [phone] Thank you for this referral
== END ==
PROVIDERS: PCP Student in an Organized Health Care Education/Training Program; Referring Provider Student in an Organized Health Care Education/Training Program; Visit Provider Student in an Organized Health Care Education/Training Program
DX: E11.9 Type 2 diabetes mellitus without complications (principal); Z79.84 Long term (current) use of oral hypoglycemic drugs; Z71.3 Dietary counseling and surveillance
CPT/HCPCS: G0108

== ENCOUNTER 2022-08-08 12:39 | Outpatient (RCR) | payer OTHER, SELFPAY ==
[2021-10-13 14:07] VITALS: BMI 35.7
--- NOTE | 2022-08-08 14:37 | PT.OIE ---
Current Diagnoses Dizziness and giddiness (08/08/22) Past Medical History (Last Reviewed 10/17/21 @ 07:25 by Migueilna Nielsen PA-C) Anemia Anxiety Arthritis Asthma CHF (congestive heart failure) Depression Diabetes Facet arthropathy, lumbar Fibromyalgia Heart failure HTN (hypertension) Lumbar post-laminectomy syndrome Neuropathy CLAUDE on CPAP Pneumonia (2017) Sciatica Scoliosis due to degenerative disease of spine in adult patient Seasonal allergies Spinal stenosis TIA (transient ischemic attack) Past Surgical History (Last Reviewed 10/17/21 @ 07:25 by Miguelina Nielsen PA-C) H/O lumbosacral spine surgery History of arthroplasty of left knee History of arthroplasty of right knee History of carpal tunnel surgery of right wrist History of hysterectomy Hx of elbow surgery (2018) Hx of laminectomy (1969) Hx of lumbosacral spine surgery (2012) Hx of tonsillectomy Visit Care Team Role Provider Type Tresa Stevens PA-C Family Provider Physician Instructional Developer Primary Care Provider Specialty: Medical Address: [address] [place] [address] Email: [email or web address] Barbara Rodriguez PA-C Attending Provider Advanced Prawn Trawler Hand Referring Provider Specialty: Medical Address: [address] [place] [address], [facility] Email: Physical Therapy Initial Evaluation PT-OP-A Visit Information Start: 08/06/22 12:58 Freq: Status: Active Protocol: Document 08/08/22 13:03 AMB (Rec: 08/08/22 13:22 AMB [id number]) Out-Patient Physical Therapy Visit Information Visit Information Visit Type Initial Evaluation Visit Start Time 13:00 Visit Stop Time 13:45 Total Visit Minutes 45 Visit Number 1 PT-OP-B Current Condition Start: 08/06/22 12:58 Freq: Status: Active Protocol: Document 08/08/22 13:03 AMB (Rec: 08/08/22 13:22 AMB [id number]) Current Condition History of Current Condition Onset Date 06/2022 Current Complaints dizziness History of Current Condition Pt reports nausea dizziness getting into bed. Feels like things are better, tried to do the Alice at home which seems to have helped. Did recently have a significant back surgery in October. Pt notes peripheral neuropathy makes walking very challenging. Is on blood pressure medication and notes if she doesn't drink enough water then sx are worse. NO falls in the last 6 months, does live in a 2 story condo with her disabled . A couple of weeks since symptoms have improved. Personal Factors Other Personal Factors That May Effect DMII with neuropathy, multiple Therapy/Recovery lumbar surgeries most recent spinal fusion 2021, TKA 2006, 2007, fibromyalgia, CHF, TIA PT-OP-C Subjective Start: 08/06/22 12:58 Freq: Status: Active Protocol: Document 08/08/22 16:05 AMB (Rec: 08/08/22 16:06 AMB [id number]) Patient Questionnaires Dizziness Handicap Inventory DHI Score 28 DHI Functional Impairment 20 to 39% Impaired (Score 20- 39) PT-OP-O Vestibular Start: 08/06/22 12:58 Freq: Status: Active Protocol: Document 08/08/22 13:03 AMB (Rec: 08/18/22 14:37 AMB [id number]) Vestibular Assessment Visual Testing Smooth Pursuits Horizontal WFL Smooth Pursuits Vertical WFL Saccades Horizontal WFL Saccades Vertical WFL Positional Testing Stryker-Hallpike Negative Left,Negative Right Rolling Test Negative Left,Negative Right PT-OP-T Assessment and Plan Start: 08/06/22 12:58 Freq: Status: Active Protocol: Document 08/08/22 13:03 AMB (Rec: 08/18/22 14:36 AMB [id number]) Physical Therapy Assessment Rehab Potential Rehabilitation Potential Good Evaluation Complexity Number of Personal Factors/Comorbidities 1-2 Number of Body Systems Impaired 1-2 Clinical Presentation at Evaluation Stable Impairments Impairments Vestibular Goals One Impairment Dizziness Short Term Goal (STG) Yomaira will perform all bed mobility without dizziness. Assessment Summary Assessment Yomaira attends physical therapy with what likely could have been BPPV. However a few weeks ago after trying the Alice maneuver at home, she reports a significant reduction in sx. She has had no nausea since, and today did not show any nausea, dizziness or nystagmus with DixHallpike or supine roll test. Will will put her on hold to give her time to make sure that her symptoms have fully resolved. Physical Therapy Plan Frequency and Duration Frequency of Treatment 1x/Week Duration of treatment (weeks) 4 Plan of Care Start Date 08/08/22 Plan of Care End Date 09/05/22 Therapeutic Interventions Therapeutic Interventions Neuromuscular Re-education, Self-Care/Home Management, Therapeutic Activities, Therapeutic Exercises, Vestibular Rehabilitation Next Visit Focus/Plan Next Note Type Treatment Note Next Visit Plan Pt on hold for one month, will call clinic if sx return.
--- NOTE | 2022-08-08 14:39 | PT.OPPOC ---
Physical, Occupational & Speech Therapy At [facility] Current Diagnoses Dizziness and giddiness (08/08/22) Visit Care Team Role Provider Type Tresa Stevens PA-C Family Provider Physician Director Of Hotel Primary Care Provider Specialty: Medical Address: [address] [place] [address], [id number] Email: [email or web address] Barbara Rodriguez PA-C Attending Provider Advanced Computer Sciences Professor Referring Provider Specialty: Medical Address: [address] [place] [address], [id number] Email: Plan Of Care PT-OP-T Assessment and Plan Start: 08/06/22 12:58 Freq: Status: Active Protocol: Document 08/08/22 13:03 AMB (Rec: 08/18/22 14:36 AMB [id number]) Physical Therapy Assessment Rehab Potential Rehabilitation Potential Good Evaluation Complexity Number of Personal Factors/Comorbidities 1-2 Number of Body Systems Impaired 1-2 Clinical Presentation at Evaluation Stable Impairments Impairments Vestibular Goals One Impairment Dizziness Short Term Goal (STG) Yomaira will perform all bed mobility without dizziness. Assessment Summary Assessment Yomaira attends physical therapy with what likely could have been BPPV. However a few weeks ago after trying the Alice maneuver at home, she reports a significant reduction in sx. She has had no nausea since, and today did not show any nausea, dizziness or nystagmus with DixHallpike or supine roll test. Will will put her on hold to give her time to make sure that her symptoms have fully resolved. Physical Therapy Plan Frequency and Duration Frequency of Treatment 1x/Week Duration of treatment (weeks) 4 Plan of Care Start Date 08/08/22 Plan of Care End Date 09/05/22 Therapeutic Interventions Therapeutic Interventions Neuromuscular Re-education, Self-Care/Home Management, Therapeutic Activities, Therapeutic Exercises, Vestibular Rehabilitation Next Visit Focus/Plan Next Note Type Treatment Note Next Visit Plan Pt on hold for one month, will call clinic if sx return. Plan of Care Dates Plan of Care Start Date 08/08/22 Plan of Care End Date 09/05/22 Electronically Signed by: Andreea Lazcano, PT 08/18/22 0541 If you are in agreement with this Plan of Care, please return a signed and dated copy. I have reviewed this Plan of Care and certify that the skilled therapy services above are required to meet the patient?s needs. Physician Signature Date Printed Name and Credentials Clinical Instructor Signature Printed Name and Credentials
--- NOTE | 2022-10-07 10:37 | PT.OPDS ---
Current Diagnoses Dizziness and giddiness (08/08/22) Visit Care Team Role Provider Type Tresa Stevens PA-C Family Provider Physician Salon Designer Primary Care Provider Specialty: Medical Address: [address] [place] [address], [facility] Email: [email or web address] Barbara Rodriguez PA-C Attending Provider Advanced Kettle Chipper Referring Provider Specialty: Medical Address: [address] [place] [address], [id number] Email: Visit Number Visit Number 1 Discharge Summary PT-OP-B Current Condition Start: 08/06/22 12:58 Freq: Status: Active Protocol: Document 08/08/22 13:03 AMB (Rec: 08/08/22 13:22 AMB [id number]) Current Condition History of Current Condition Onset Date 06/2022 Current Complaints dizziness History of Current Condition Pt reports nausea dizziness getting into bed. Feels like things are better, tried to do the Alice at home which seems to have helped. Did recently have a significant back surgery in October. Pt notes peripheral neuropathy makes walking very challenging. Is on blood pressure medication and notes if she doesn't drink enough water then sx are worse. NO falls in the last 6 months, does live in a 2 story condo with her disabled . A couple of weeks since symptoms have improved. Personal Factors Other Personal Factors That May Effect DMII with neuropathy, multiple Therapy/Recovery lumbar surgeries most recent spinal fusion 2021, TKA 2006, 2007, fibromyalgia, CHF, TIA PT-OP-C Subjective Start: 08/06/22 12:58 Freq: Status: Active Protocol: Document 08/08/22 16:05 AMB (Rec: 08/08/22 16:06 AMB [id number]) Patient Questionnaires Dizziness Handicap Inventory DHI Score 28 DHI Functional Impairment 20 to 39% Impaired (Score 20- 39) PT-OP-O Vestibular Start: 08/06/22 12:58 Freq: Status: Active Protocol: Document 08/08/22 13:03 AMB (Rec: 08/18/22 14:37 AMB [id number]) Vestibular Assessment Visual Testing Smooth Pursuits Horizontal WFL Smooth Pursuits Vertical WFL Saccades Horizontal WFL Saccades Vertical WFL Positional Testing Mary-Hallpike Negative Left,Negative Right Rolling Test Negative Left,Negative Right PT-OP-T Assessment and Plan Start: 08/06/22 12:58 Freq: Status: Active Protocol: Document 10/07/22 10:36 AMB (Rec: 10/07/22 10:37 AMB [id number]) Physical Therapy Assessment Goals One Impairment Dizziness Short Term Goal (STG) Yomaira will perform all bed mobility without dizziness. Assessment Summary Assessment Pt was seen over 2 months ago and put on hold at that time, she has not reached out to the clinic to schedule moer appointments, so she is discharged at this time. Physical Therapy Plan Discharge Physical Therapy Discharge Reasons No Longer Attending PT
== END 2022-10-08 11:19 | disposition home or self-care (01) ==
LOC: PHYS 12:39
PROVIDERS: Family Provider Student in an Organized Health Care Education/Training Program; PCP Student in an Organized Health Care Education/Training Program; Referring Provider Physician Assistant; Visit Provider Physician Assistant
DX: R42 Dizziness and giddiness (principal)
CPT/HCPCS: 97161

== ENCOUNTER 2022-09-02 16:39 | Observation (INO) | payer OTHER, SELFPAY ==
[2021-10-13 14:07] VITALS: BMI 35.7
[2022-09-02] VITALS (13 sets, daily range): BP systolic 147–215; BP diastolic 66–131; PULSE 71–79; RESP 11–28; TEMP 36.4–36.7; O2SAT 95–98; BMI 37.3
--- NOTE | 2022-09-02 17:13 | DI.RAD.S_ITS ---
PROCEDURE: XR CHEST 1V INDICATIONS: chest pain TECHNIQUE: One view of the chest was acquired. COMPARISON: None. FINDINGS: Surgical changes and devices: None. Lungs and pleura: On this semiupright portable chest examination, no large pneumothorax or large pleural effusions are seen. No focal infiltrates are seen. Mediastinum: Mediastinal contours appear normal. Heart size is normal. Bones and chest wall: No suspicious bony lesions. Age-appropriate bony degenerative changes are seen. Overlying soft tissues appear unremarkable. IMPRESSION: Portable chest within normal limits. Dictated by: Fabián Sanders M.D. on 09/02/2022 at 16:52 Approved by: Fabián Sanders M.D. on 09/02/2022 at 16:53
[2022-09-02 17:35] LABS: Add Manual Diff / Slide Review NO; Basophils Absolute Auto 0 /uL (0-100); Basophils Percent Auto 0.4 % (0-2); Eosinophils Absolute Auto 100 /uL (0-450); Eosinophils Percent Auto 0.9 % (2-4); Hematocrit 37.9 % (36-46); Hemoglobin 12.7 g/dL (12.0-16.0); Lymphocytes Absolute Auto 1500 /uL (1100-4500); Lymphocytes Percent Auto 13.1 % (25-40); Mean Corpuscular HGB Conc 33.4 % (30-36); Mean Corpuscular Hemoglobin 28.4 PG (26-34); Mean Corpuscular Volume 84.9 fL (80-100); Monocytes Absolute Auto 700 /uL (0-900); Monocytes Percent Auto 5.9 % (3-14); Neutrophils Absolute Auto 8800 /uL (1500-7000); Neutrophils Percent Auto 79.7 % (50-75); Platelet Count 219 X10^3/uL (150-400); Red Blood Cell Count 4.46 X10^6/uL (4.0-5.2); Red Cell Distribution Width 13.1 % (11.6-14.8); White Blood Cell Count 11.1 X10^3/uL (4.5-11.0)
[2022-09-02 17:42] LABS: Alanine Aminotransferase 22 IU/L (<35); Albumin 4.3 g/dL (3.5-5.0); Albumin Globulin Ratio 1.5 (1.0-2.8); Alkaline Phosphatase 120 U/L (38-126); Aspartate Aminotransferase 26 IU/L (14-36); BUN Creatinine Ratio 30.3 (6-22); Bilirubin Total 0.4 mg/dL (0.2-1.3); Blood Urea Nitrogen 20 mg/dL (7-17); Calcium 9.4 mg/dL (8.4-10.2); Carbon Dioxide 30 mmol/L (22-32); Chloride 94 mmol/L (98-107); Creatine Kinase 53 U/L (30-135); Estimated Glomerular Filt Rate > 60 mL/min (>60); Globulin 2.8 g/dL (1.7-4.1); Glucose 105 mg/dL (80-110); HEMOLYSIS < 15 (0-50); Lipase 82 U/L (23-300); Potassium 4.3 mmol/L (3.4-5.1); Sodium 134 mmol/L (137-145); Total Protein 7.1 g/dL (6.3-8.2)
[2022-09-02 17:54] LABS: Troponin I 0.017 ng/mL (0.01-0.034)
[2022-09-02] MEDS: SODIUM CHLORIDE 0.9% 1,000 ML 150 ML IV (18:06)
--- NOTE | 2022-09-02 18:15 | ED.DIZZY ---
HPI - Dizziness General Chief Complaint: Dizziness Stated Complaint: Dizziness, weakness Time Seen by Provider: 09/02/22 17:35 Source: EMS Mode of arrival: EMS Limitations: no limitations History of Present Illness HPI Narrative: This is an 82-year-old female who has a history of prior TIA with no residual deficits in 2001 that was expressive aphasia, hypertension, diabetes, peripheral neuropathy and history of BPPV. Patient states she has had symptoms since yesterday at noon, she states she was watching TV got up to go to the bathroom with the kitchen and felt off balance with/dizziness but describes it as the room spinning. Patient states it has been persistent not waxing and waning intensity it has not resolved. She has had BPPV in the past but she states that was always trending to her left side and movement into other directions would not cause issues. Patient states that she did have the Alice maneuver in the past and it was helpful. But she states this is different. She did try meclizine this morning at 9:30 a.m. and took another dose at 2:00 p.m. which was helpful. She has had a headache that has been persistent gradual on onset. She is unsure of exact onset time. She does state she has some new numbness and tingling and a sensation of weakness in her right calf and foot. She denies past pain, no new shortness of breath. She is had nausea but no active vomiting. No diarrhea, no constipation, no black or bloody stools. No new urinary symptoms. Patient denies numbness or tingling or weakness elsewhere in her body. No swelling in her extremities. Patient does note she has not taken her daily medications including her antihypertensives her gabapentin but states she does not normally have numbness or tingling in her right lower extremity. She has been diagnosed with peripheral neuropathy in the past but states she has not felt to for several years. Patient denies any fevers or chills, no cold cough or congestion. She is felt hot at times but has not had any objective fevers. Patient does have a prior history of lumbar fusion and did have an EMG for her lower extremities. She is not on aspirin or any daily thinners. Tobacco, no illicit. Her primary care is SAMANTHA Stevens. Related Data Home Medications Medication Instructions Recorded Confirmed bumetanide 1 mg tablet 1 mg PO DAILY 01/11/20 04/10/22 gabapentin 300 mg capsule 300 mg PO TID 01/11/20 04/10/22 hydralazine 25 mg tablet 25 mg PO TID 01/11/20 04/10/22 labetalol 200 mg tablet 200 mg PO BID 01/11/20 04/10/22 losartan 100 mg tablet 50 mg PO DAILY 01/11/20 04/10/22 magnesium oxide 1 tab PO DAILY 01/11/20 04/10/22 metformin 500 mg tablet 500 mg PO BID 01/11/20 04/10/22 pramipexole 0.75 mg tablet 0.75 mg PO DAILY 01/11/20 04/10/22 tizanidine 2 mg capsule 2 mg PO BID PRN Pain 01/11/20 04/10/22 ascorbic acid (vitamin C) 500 mg 500 mg PO DAILY 03/20/22 04/10/22 tablet (Vitamin C) cholecalciferol (vitamin D3) 125 125 mcg PO DAILY 03/20/22 04/10/22 mcg (5,000 unit) tablet (Vitamin D3) coenzyme Q10 100 mg capsule 100 mg PO DAILY 03/20/22 04/10/22 (CoQ-10) cranberry fruit concentrate 250 mg 250 mg PO DAILY uninary spasm 03/20/22 04/10/22 chewable tablet (Azo Cranberry) melatonin 5 mg tablet 5 mg PO BEDTIME PRN Insomnia 03/20/22 04/10/22 vitamin E 200 unit tablet 180 mg PO DAILY 03/20/22 04/10/22 empagliflozin 10 mg tablet 10 mg PO DAILY 04/10/22 04/10/22 (Jardiance) spironolactone 25 mg tablet 12.5 mg PO DAILY 04/10/22 04/16/22 Previous Rx's Medication Instructions Recorded amlodipine 5 mg tablet 5 mg PO BEDTIME PRN HTN #0 tabs 10/17/21 docusate sodium 100 mg capsule 100 mg PO BID PRN Constipation 10/17/21 from narcotic pain meds #30 caps Allergies Allergy/AdvReac Type Severity Reaction Status Date / Time No Known Drug Allergies Allergy Verified 09/02/22 16:51 Review of Systems Review of Systems ROS Unobtainable: All systems reviewed & are unremarkable except as noted in HPI and below Patient History Medical History Anemia Anxiety Arthritis Asthma CHF (congestive heart failure) Depression Diabetes Facet arthropathy, lumbar Fibromyalgia Heart failure HTN (hypertension) Lumbar post-laminectomy syndrome Neuropathy CLAUDE on CPAP Pneumonia (2017) Sciatica Scoliosis due to degenerative disease of spine in adult patient Seasonal allergies Spinal stenosis TIA (transient ischemic attack) Surgical History H/O lumbosacral spine surgery History of arthroplasty of left knee History of arthroplasty of right knee History of carpal tunnel surgery of right wrist History of hysterectomy Hx of elbow surgery (2019) Hx of laminectomy (1969) Hx of lumbosacral spine surgery (2012) Hx of tonsillectomy Family History Father Lung cancer Mother Vascular dementia Sister Allergies Asthma Hypertension Vascular dementia Grandmother No problems noted. Social History household members: spouse Smoking Status: Never smoker alcohol intake: former Smoking Status: Never smoker Substance Use Type: does not use Exam Narrative Exam Narrative: GEN: Obese elderly female, alert and oriented x 3, patient appears to be in mild distress. HEENT: Atraumatic, pupils are equal round reactive to light, extraocular movements are intact, no nystagmus, no rotatory nystagmus with Alice maneuver bilaterally, nares are clear, TMs are clear with no fluid, there is no conjunctival pallor. Throat is clear without any exudates, erythema, tonsillar enlargement or uvular deviation, no facial droop. HEART: Regular rate and rhythm without murmur, clicks, rubs. No carotid bruits, pulses are equal in upper and lower extremities LUNGS:Lungs clear to auscultation, no wheezes, rales, crackles, chest moves symmetrically ABD:bowel sounds normal, soft, non-tender, no guarding, rebound, rigidity, no masses noted, no hepatosplenomegaly :No CVA tenderness MSCL: Non-tender, no muscle atrophy, muscles strength 5/5 upper and lower extremities patient does have decreased range of motion of the left shoulder but states she has chronic pain and shoulder issues and this is her normal range of motion. NEURO:CN 2-12 intact, sensation normal except for slight decrease his right lower extremity., finger nose finger test normal, heel odonnell test normal this left foot, patient has some mild difficulty with right, romberg normal Initial Vital Signs Initial Vital Signs: Vital Signs Temperature 97.6 F 09/02/22 16:53 Pulse Rate 76 09/02/22 16:53 Respiratory Rate 18 09/02/22 16:53 Blood Pressure 215/83 H 09/02/22 16:53 Pulse Oximetry 98 09/02/22 16:53 Oxygen Delivery Method 09/02/22 16:53 Scores NIH Stroke Scale Level of Conciousness: Alert, keenly responsive Ask month/age: Answers both questions correctly. Open/close eyes, close hand: Performs both tasks correctly Best gaze horizontal: Normal Visual landis: No visual loss Facial palsy: Normal symetrical movement Left arm drift: No drift for full 10 sec Right arm drift: No drift for full 10 sec Left leg drift: No drift for full 5 sec Right leg drift: No drift for full 5 sec Limb ataxia: Present in one limb Sensory on face/arms/legs: Mild to moderate sensory loss, can tell touch Best language: No aphasia, normal Dysarthria: Normal Extinction or inattention: No abnormality Total NIH Stroke scale score: 2 Course Orders Ordered: ED Orders 09/03/22 EC echo doppler complete Stat 09/03/22 06:31 Complete Blood Count AUTO DIFF DAILY Comprehensive Metabolic Panel DAILY Lipid Panel Routine Magnesium DAILY Thyroid Stimulating Hormone Routine 09/04/22 05:00 Complete Blood Count AUTO DIFF DAILY Comprehensive Metabolic Panel DAILY Magnesium DAILY Acetaminophen (Acetaminophen 325 Mg Tablet) 650 mg PO Q6H PRN PRN Reason: Fever/Mild Pain (1-3) Last Admin: 09/03/22 00:55 Dose: 650 mg Documented By: ALEXANDER Hydrocodone Bitart/Acetaminophen (Hydrocodone/Acet 5/325 Tablet) 1 tab PO Q4H PRN PRN Reason: Pain, Moderate (4-6) Last Admin: 09/03/22 00:55 Dose: 1 tab Documented By: ALEXANDER Amlodipine Besylate (Amlodipine 5 Mg Tablet) 5 mg PO BEDTIME PRN PRN Reason: HTN Aspirin (Aspirin Ec 325 Mg Tablet) 325 mg PO DAILY MARY Atorvastatin Calcium (Atorvastatin 20 Mg Tablet) 80 mg PO BEDTIME MARY Last Admin: 09/03/22 00:48 Dose: 80 mg Documented By: ALEXANDER Dextrose (Dextrose 50 % In Water 25 Gm/50 Ml Syringe) 25 gm IV PRN PRN PRN Reason: Hypoglycemia Docusate Sodium (Docusate 100 Mg Capsule) 100 mg PO BID PRN PRN Reason: Constipation from narcotic pain meds Last Admin: 09/03/22 00:48 Dose: 100 mg Documented By: ALEXANDER Gabapentin (Gabapentin 300 Mg Capsule) 300 mg PO TID [facility] Last Admin: 09/03/22 00:48 Dose: 300 mg Documented By: ALEXANDER Sodium Chloride (Normal Saline 0.9%) 1,000 mls @ 100 mls/hr IV CONT [facility] Last Admin: 09/03/22 00:48 Dose: 100 mls/hr Documented By: ALEXANDER Insulin Human Lispro (Insulin Lispro 100 Unit/Ml 3ml Vial) 0 unit SUBCUT ACHS [facility]; Protocol Losartan Potassium (Losartan 50 Mg Tablet) 50 mg PO DAILY [facility] Naloxone HCl (Naloxone 0.4 Mg/Ml Vial) 0.2 mg IV Q2MIN PRN PRN Reason: Opiate Reversal Ondansetron HCl (Ondansetron 4 Mg/2 Ml Inj) 4 mg IV Q8HR PRN PRN Reason: Nausea And Vomiting Last Admin: 09/03/22 05:34 Dose: 4 mg Documented By: ALEXANDER Pramipexole Dihydrochloride (Pramipexole 0.25 Mg Tablet) 0.75 mg PO DAILY [facility] Last Admin: 09/03/22 00:48 Dose: 0.75 mg Documented By: ALEXANDER Discontinued Medications Hydrocodone Bitart/Acetaminophen (Hydrocodone/Acet 5/325 Tablet) 1 tab PO NOW ONE Stop: 09/02/22 21:33 Last Admin: 09/02/22 21:57 Dose: 1 tab Documented By: MANJIT Aspirin (Aspirin 81 Mg Chew Tab) 324 mg PO NOW ONE Stop: 09/02/22 20:34 Last Admin: 09/02/22 21:09 Dose: 324 mg Documented By: MANJIT Sodium Chloride (Normal Saline 0.9%) 1,000 mls @ 150 mls/hr IV CONT [facility] Stop: 09/02/22 21:57 Last Admin: 09/02/22 18:06 Dose: 150 mls/hr Documented By: MANJIT Ondansetron HCl (Ondansetron 4 Mg/2 Ml Inj) 4 mg IV NOW ONE Stop: 09/02/22 18:53 Last Admin: 09/02/22 19:02 Dose: 4 mg Documented By: MANJIT Vital Signs Vital signs: Vital Signs - 8 hr 09/02/22 16:53 09/02/22 16:53 09/02/22 16:55 Temperature 97.6 F Pulse Rate 76 75 Respiratory Rate 18 22 Blood Pressure 215/83 H 215/83 H Pulse Oximetry 98 96 Oxygen Delivery Method Room Air 09/02/22 16:55 09/02/22 16:56 09/02/22 16:56 Temperature Pulse Rate 77 76 Respiratory Rate 15 14 Blood Pressure 211/93 H Pulse Oximetry 97 96 Oxygen Delivery Method 09/02/22 17:00 09/02/22 17:00 09/02/22 17:30 Temperature Pulse Rate 75 Respiratory Rate 16 Blood Pressure 206/101 H 209/90 H Pulse Oximetry 97 Oxygen Delivery Method 09/02/22 17:30 09/02/22 17:58 09/02/22 17:58 Temperature Pulse Rate 74 71 Respiratory Rate 11 L 21 Blood Pressure 203/131 H Pulse Oximetry 96 98 Oxygen Delivery Method 09/02/22 18:00 09/02/22 18:00 09/02/22 18:15 Temperature Pulse Rate 71 73 Respiratory Rate 17 13 Blood Pressure 205/100 H Pulse Oximetry 97 96 Oxygen Delivery Method Room Air 09/02/22 18:30 09/02/22 18:30 09/02/22 18:45 Temperature Pulse Rate 73 75 Respiratory Rate 28 H 26 H Blood Pressure 213/96 H Pulse Oximetry 97 96 Oxygen Delivery Method 09/02/22 19:00 09/02/22 19:01 09/02/22 19:01 Temperature Pulse Rate 79 79 Respiratory Rate 26 H 28 H Blood Pressure 195/78 H Pulse Oximetry 97 97 Oxygen Delivery Method Room Air MDM - Dizziness Lab Data 09/02/22 17:23 09/02/22 17:23 Labs: Lab Results 09/02/22 09/02/22 09/02/22 Range/Units 17:23 17:23 17:23 WBC 11.1 H (4.5-11.0) X10^3/uL RBC 4.46 (4.0-5.2) X10^6/uL Hgb 12.7 (12.0-16.0) g/dL Hct 37.9 (36-46) % MCV 84.9 (80-100) fL MCH 28.4 (26-34) PG MCHC 33.4 (30-36) % RDW 13.1 (11.6-14.8) % Plt Count 219 (150-400) X10^3/uL Neut % (Auto) 79.7 H (50-75) % Lymph % (Auto) 13.1 L (25-40) % [place] % (Auto) 5.9 (3-14) % Eos % (Auto) 0.9 L (2-4) % Baso % (Auto) 0.4 (0-2) % Neut # (Auto) 8800 H (5443-6254) /uL Lymph # (Auto) 1500 (9326-9451) /uL [place] # (Auto) 700 (0-900) /uL Eos # (Auto) 100 (0-450) /uL Baso # (Auto) 0 (0-100) /uL Sodium 134 L (137-145) mmol/L Potassium 4.3 (3.4-5.1) mmol/L Chloride 94 L (98-107) mmol/L Carbon Dioxide 30 (22-32) mmol/L BUN 20 H (7-17) mg/dL Creatinine 0.66 (0.52-1.04) mg/dL Estimated GFR > 60 (>60) mL/min BUN/Creatinine Ratio 30.3 H (6-22) Glucose 105 (80-110) mg/dL Hemoglobin A1c (4.0-6.0) % Calcium 9.4 (8.4-10.2) mg/dL Magnesium 1.9 (1.6-2.3) mg/dL Total Bilirubin 0.4 (0.2-1.3) mg/dL AST 26 (14-36) IU/L ALT 22 (<35) IU/L Alkaline Phosphatase 120 (38-126) U/L Total Creatine Kinase 53 (30-135) U/L CK-MB (CK-2) TNP CK-MB (CK-2) Rel Index TNP Troponin I 0.017 (0.01-0.034) ng/mL Total Protein 7.1 (6.3-8.2) g/dL Albumin 4.3 (3.5-5.0) g/dL Globulin 2.8 (1.7-4.1) g/dL Albumin/Globulin Ratio 1.5 (1.0-2.8) Lipase 82 (23-300) U/L SARS-CoV-2 (PCR) (Negative) 09/02/22 09/02/22 Range/Units 17:23 18:55 WBC (4.5-11.0) X10^3/uL RBC (4.0-5.2) X10^6/uL Hgb (12.0-16.0) g/dL Hct (36-46) % MCV (80-100) fL MCH (26-34) PG MCHC (30-36) % RDW (11.6-14.8) % Plt Count (150-400) X10^3/uL Neut % (Auto) (50-75) % Lymph % (Auto) (25-40) % [place] % (Auto) (3-14) % Eos % (Auto) (2-4) % Baso % (Auto) (0-2) % Neut # (Auto) (4720-5664) /uL Lymph # (Auto) (0068-8587) /uL [place] # (Auto) (0-900) /uL Eos # (Auto) (0-450) /uL Baso # (Auto) (0-100) /uL Sodium (137-145) mmol/L Potassium (3.4-5.1) mmol/L Chloride (98-107) mmol/L Carbon Dioxide (22-32) mmol/L BUN (7-17) mg/dL Creatinine (0.52-1.04) mg/dL Estimated GFR (>60) mL/min BUN/Creatinine Ratio (6-22) Glucose (80-110) mg/dL Hemoglobin A1c 6.4 H (4.0-6.0) % Calcium (8.4-10.2) mg/dL Magnesium (1.6-2.3) mg/dL Total Bilirubin (0.2-1.3) mg/dL AST (14-36) IU/L ALT (<35) IU/L Alkaline Phosphatase (38-126) U/L Total Creatine Kinase (30-135) U/L CK-MB (CK-2) CK-MB (CK-2) Rel Index Troponin I (0.01-0.034) ng/mL Total Protein (6.3-8.2) g/dL Albumin (3.5-5.0) g/dL Globulin (1.7-4.1) g/dL Albumin/Globulin Ratio (1.0-2.8) Lipase (23-300) U/L SARS-CoV-2 (PCR) Negative (Negative) ECG Data Attestation: I personally reviewed and interpreted this ECG as follows: Prior ECG tracings: available for review Interpretation: Sinus rhythm rate of 70 6p are 180 QRS of 168 QTC of 508, patient has left axis deviation left bundle-branch has prior from 10/04 with similar appearing EKG. Treatment and disposition Social Determinants of Health that impact treatment or disposition: Patient notes her is disabled. MDM Narrative Medical decision making narrative: This is an 82-year-old female who comes to the emergency department with complaint of new onset vertigo symptoms that has started over 24 hours ago at noon yesterday. She describes vertigo, feeling off-balance and some new numbness tingling of her right lower extremity. Patient has had persistent headache she is unsure the onset but has been gradual not worse head of come her life making bleed unlikely. Patient has had a prior TIA in 2001 with expressive aphasia she is not on any anticoagulation, she is on medication for hypertension and diabetes she does take gabapentin for peripheral neuropathy and missed doses of her blood pressure and gabapentin today because of her nausea from her vertigo symptoms. She does state that she has not had numbness and tingling in her leg or these symptoms in a long time. On examination she also notes she is had a history of BPPV and has had treatment with PT and Alice maneuver. I am unable to reproduce rotatory nystagmus on her exam today. Concern for possible TIA or stroke unable to rule out with MR which is not available tonight, head CT was obtained attempted CT angio but had difficulty with access, labs show normal CBC, normal sodium, creatinine with no other electrolyte changes troponin 0.07 with negative LFTs and chest x-ray. Spoke with hospitalist patient's NIH is 2, aspirin was given. Permissive hypertension for potential stroke. Patient accepted by MONET Vyas for observation Discharge Plan Departure Patient Disposition: Admitted as Observation Clinical Impression: Stroke Admit Date/Time: 09/02/22 22:14 Admit Provider: Yaz Vyas
--- NOTE | 2022-09-02 18:52 | DI.CT.S_ITS ---
PROCEDURE: CT ANGIO HEAD AND NECK INDICATIONS: vertigo, right leg numbness TECHNIQUE: After the administration of intravenous contrast, 1 mm thick sections acquired from the aortic arch through the [place] of [place]. Post-contrast 4.5 mm thick sections then re-acquired from the foramen magnum to the vertex. 3-dimensional mleutvx-coxlflipy-esdrdzfroc (MIP) and/or volume rendering reformats were acquired of the central intracranial vasculature and neck separately. For radiation dose reduction, the following was used: automated exposure control, adjustment of mA and/or kV according to patient size. COMPARISON: [facility], CT, CT HEAD/BRAIN WO CON, 09/02/2022, 19:00. FINDINGS: Image quality: Excellent. BRAIN: CSF spaces: Ventricles are normal in size and shape. Basal cisterns are patent. No extra-axial fluid collections. Brain: No midline shift. No intracranial bleeds or masses. Tom-white matter interface appears intact. Skull and face: Calvarium and facial bones appear intact, without suspicious lesions. Orbits appear normal. Sinuses: Sinuses and mastoids are clear. HEAD CT ANGIOGRAPHY: Anterior circulation: Intracranial internal carotid arteries are normal in size and flow. There are atherosclerotic calcifications in cavernous segment of the internal carotid arteries bilaterally. The flow within the paired anterior cerebral arteries is normal and symmetric. The flow within the middle cerebral arteries is normal and symmetric. The anterior communicating artery is seen. No aneurysms are seen. Posterior circulation: Visualized portions of the vertebral arteries demonstrate normal caliber, and join to form a normal appearing basilar artery. Flow within the posterior cerebral arteries is normal and symmetric. No aneurysms are seen. NECK CT ANGIOGRAPHY: Carotid system: A common trunk for the left common carotid artery and innominate artery. The origins of the common carotid arteries appear patent. The common carotid arteries demonstrate normal caliber and courses. The bifurcation regions are patent bilaterally. There is moderate stenosis of the right internal carotid artery origin (approximately 50%). The internal carotid arteries demonstrate normal calibers and courses. Posterior circulation: The origins of the vertebral arteries both appear widely patent. The more superior extracranial portions of both vertebral arteries also demonstrate normal courses and calibers. They join to form a normal appearing basilar artery. Soft tissues: Visualized neck soft tissues demonstrate no suspicious abnormalities. There are borderline sized cervical lymph nodes bilaterally, most likely reactive. Bones: No suspicious bony lesions. Visualized cervical spine appears normally aligned. IMPRESSION: 1. No acute intracranial abnormalities. 2. No hemodynamic significant stenosis in anterior or posterior circulations. 3. Proximal 50% stenosis of the right internal carotid artery origin. 4. No hemodynamic significant stenosis in cervical vertebral arteries bilaterally. Any quantitative measurements of stenosis were performed using NASCET criteria. Dictated by: Andrea Jackson M.D. on 09/02/2022 at 20:33 Approved by: Andrea Jackson M.D. on 09/02/2022 at 20:43
--- NOTE | 2022-09-02 18:52 | DI.CT.S_ITS ---
PROCEDURE: CT HEAD/BRAIN WO CON INDICATIONS: vertigo, right leg numbness, weakness, hx tia expressive TECHNIQUE: Noncontrast 4.5 mm thick angled axial sections acquired from the foramen magnum to the vertex, with coronal and sagittal reformats. For radiation dose reduction, the following was used: automated exposure control, adjustment of mA and/or kV according to patient size. COMPARISON: None. FINDINGS: Image quality: Excellent. CSF spaces: Basal cisterns are patent. No extra-axial fluid collections. The ventricles are symmetric in size and shape. Brain: No intracranial bleeds or masses. Possible lacunar infarct in the right basal ganglia/internal capsule. There is cerebral volume loss for age, with resultant ventricular and sulcal prominence. There are periventricular and deep white matter chronic small vessel ischemic changes. There is intracranial internal carotid artery atherosclerosis. Skull and face: Calvarium and visualized facial bones appear intact, without suspicious lesions. Sinuses: Visualized sinuses and mastoids are clear. IMPRESSION: 1. No acute intracranial abnormalities. 2. Possible lacunar infarct in the right basal ganglia/internal capsule. 3. Cerebral volume loss and chronic microvascular ischemic changes. Dictated by: Andrea Jackson M.D. on 09/02/2022 at 19:36 Approved by: Andrea Jackson M.D. on 09/02/2022 at 19:38
[2022-09-02] MEDS: ONDANSETRON 4 MG/2 ML INJ IV (19:02)
[2022-09-02 19:35] LABS: COVID19 -Nasal RAPID Negative (Negative)
[2022-09-02] MEDS: ASPIRIN 81 MG CHEW TAB 324 MG PO (21:09)
[2022-09-02] MEDS: HYDROCODONE/ACET 5/325 TABLET 1 TAB PO (21:57)
[2022-09-02 22:23] LABS: Magnesium 1.9 mg/dL (1.6-2.3)
[2022-09-02 22:28] LABS: Hemoglobin A1C% w Est Avg Glu 6.4 % (4.0-6.0)
--- NOTE | 2022-09-03 | DI.ECHO.S_ITS ---
[place]+ [facility] +---------+ : : [address] : : : : [id number] : : : : Phone: [phone]+ Echocardiogram Report + + :Name: CHI ESPAÑA Study Date: 09/03/2022 Height: 60 in : :[facility] ReadingLocation: Weight: 192 lb : : Gender: Female BSA: 1.8 m2 : :: 1940 Age: 82 yrs BP: 165/63 mmHg: :Reason For Study: DIZZINESS, TIA? : :Ordering Physician: Masoud MATAformed By: Emily Justin : :Referring: MILEY MATA : + + Interpretation Summary 1) Normal left ventricular size with low normal systolic function (EF 50-55%). 2) Mildly enlarged right ventricular size with normal function. 3) No significant valvular abnormalities. 4) Hypertension present during the study (BP 165/63mmHg). 5) Compared to the Echo done 12/22/2020, LVEF has decreased from 60-65% to 50- 5% on this study. Procedure: A two-dimensional transthoracic echocardiogram with color flow and Doppler was performed. The study quality was technically adequate. Comparison is made with the echocardiogram of 12/22/2020. The patient was in sinus rhythm with heart rates between 68-72 bpm during the exam. The patient had a bundle branch block rhythm during the exam. Left Ventricle: The left ventricle is normal in size. Left ventricular wall thickness is borderline increased. The ejection fraction is estimated to be 50-55%. Septal motion is consistent with conduction abnormality. Diastolic parameters suggest a pseudonormalization pattern, consistent with probable elevated filling pressures. Right Ventricle: The right ventricle is mildly dilated. The right ventricular systolic function is normal. Atria: The left atrium is moderately dilated. Right atrial size is normal. There is no Doppler evidence for an interatrial shunt. Mitral Valve: The mitral valve is normal in structure and function. There is trace mitral regurgitation. Aortic Valve: The aortic valve is trileaflet. The aortic valve opens well. There is no aortic valve stenosis. No aortic regurgitation is present. Tricuspid Valve: The tricuspid valve is normal in structure and function. There is mild tricuspid regurgitation. The right ventricular systolic pressure is estimated to be at least 35 mmHg based on an estimated right atrial pressure of 3 mm Hg. Pulmonic Valve: The pulmonic valve leaflets are thin and pliable; valve motion is normal. There is mild pulmonic regurgitation. Great Vessels: The aortic root is normal size. The dimensions of the ascending aorta are normal. The IVC is of normal diameter and collapses greater than 50% with a sniff. This suggests a low right atrial pressure of 3 mm Hg. Pericardium/ Pleura There is no pericardial effusion. There is no pleural effusion. MMode/2D Measurements & Calculations LVIDd: 4.8 cm LVOT diam: 2.0 cm LVIDs: 3.5 cm Ao root diam: 2.9 cm FS: 26.5 % asc Aorta Diam: 2.9 cm EPSS: 0.79 cm IVSd: 1.1 cm LVPWd: 0.80 cm LV lake. diameter/BSA (cm/m^2): 2.6 LV sys. diameter/BSA (cm/m^2): 1.9 LA A2 area: 26.5 cm2 RA long axis: 5.4 cm LA A4 area: 22.2 cm2 RA area: 17.4 cm2 LA length (vol): 5.7 cm RA vol: 47.7 ml LA vol: 87.1 ml RA : 26.0 ml/m2 LA vol index: 47.5 ml/m2 IVC diam: 1.3 cm RVD1 (basal): 4.1 cm RVD2 (mid): 3.3 cm TAPSE: 2.6 cm Doppler Measurements & Calculations Ao V2 max: 159.5 cm/sec LVOT Max Chkii: 105.2 cm/sec Ao V2 mean: 114.4 cm/sec LV V1 max P.4 mmHg Ao max P.2 mmHg LV V1 VTI: 26.8 cm Ao mean P.7 mmHg SULMA(I,D): 2.3 cm2 Ao V2 VTI: 37.0 cm SULMA(V,D): 2.1 cm2 sev ratio: 0.72 USLMA indexed to BSA (cm^2/m^2): 1.2 MV E max chiki: 81.4 cm/sec TR max chiki: 282.3 cm/sec MV A max chiki: 106.8 cm/sec TR max P.9 mmHg MV E/A: 0.76 PA V2 max: 98.5 cm/sec Med Peak E' Chiki: 5.1 cm/sec PA V2 mean: 63.5 cm/sec E/E' med: 16.1 PA mean P.9 mmHg Lat Peak E' Chiki: 7.1 cm/sec PA pr(Accel): 34.5 mmHg E/E' lat: 11.4 E/e' average: 13.7 MV dec time: 0.24 sec SV(OT): 83.4 ml Reading Physician:03:33 PM
--- NOTE | 2022-09-03 | DI.MRI.S_ITS ---
PROCEDURE: MR HEAD/BRAIN WO CON INDICATIONS: TIA, hx lacunar CVA TECHNIQUE: Non-contrast axial T1 spin echo, axial T2 fast spin echo, sagittal and axial FLAIR, coronal T2 fast spin echo, axial gradient echo, axial diffusion and ADC through the brain. COMPARISON: [facility], CT, CT ANGIO HEAD AND NECK, 09/02/2022, 19:00. FINDINGS: No restricted diffusion to indicate recent ischemia. The major intracranial vascular flow-related signal voids are maintained. There is mild global cerebral volume loss with passive expansion of the ventricles and extra-axial spaces. Moderate to severe chronic microvascular ischemic changes noted. No mass effect or midline shift. The ventricular system and basilar cisterns are patent. No unexpected intracranial susceptibility. No gross orbital abnormality. Paranasal sinuses and mastoid air cells are predominantly clear. IMPRESSION: No acute finding. Mild global cerebral volume loss and moderate to severe chronic microvascular ischemic changes. Dictated by: Zain Brewster M.D. on 09/03/2022 at 9:00 Approved by: Zain Brewster M.D. on 09/03/2022 at 9:03
[2022-09-03] MEDS: ATORVASTATIN 20 MG TABLET 80 MG PO (00:48)
[2022-09-03] MEDS: DOCUSATE 100 MG CAPSULE PO (00:48)
[2022-09-03] MEDS: PRAMIPEXOLE 0.25 MG TABLET 0.75 MG PO (00:48)
[2022-09-03] MEDS: SODIUM CHLORIDE 0.9% 1,000 ML 100 ML IV (00:48)
[2022-09-03] MEDS: GABAPENTIN 300 MG CAPSULE PO ×3 (00:48→15:13)
[2022-09-03] MEDS: HYDROCODONE/ACET 5/325 TABLET 1 TAB PO (00:55)
[2022-09-03] MEDS: ACETAMINOPHEN 325 MG TABLET 650 MG PO (00:55)
[2022-09-03 01:01] VITALS: BMI 37.6
--- NOTE | 2022-09-03 01:10 | PM.HP.1 ---
History of Present Illness History of Present Illness Date Patient Seen: 09/02/22 Time Patient Seen: 22:30 Chief complaint: Stroke rule out, dizzy X 2 days Narrative: Yomaira Kinney is an 82-year-old female who has a history of prior TIA with no residual deficits in 2001 that involved expressive aphasia, hypertension, diabetes, peripheral neuropathy and history of BPPV.? Patient states she has had symptoms since yesterday at noon, she states she was watching TV got up to go to the bathroom with the kitchen and felt off balance with/dizziness but describes it as the room spinning.? Patient states it has been persistent not waxing and waning intensity it has not resolved.? She has had BPPV in the past but she states that was always trending to her left side and movement into other directions would not cause issues.? Patient states that she did have the Alice maneuver in the past and it was helpful.? But she states this is different.? She did try meclizine this morning at 9:30 a.m. and took another dose at 2:00 p.m. which was helpful.? She has had a headache that has been persistent gradual on onset.? She is unsure of exact onset time.? She does state she has some new numbness and tingling and a sensation of weakness in her right calf and foot.? She does state she has some nerve damage as a result of several back surgeries she is had starting in 2012 and the last 1 done in October of last year. She denies chest pain, no new shortness of breath.? She is had nausea but no active vomiting.? No diarrhea, no constipation, no black or bloody stools.? No new urinary symptoms.? Patient denies numbness or tingling or weakness elsewhere in her body.? Denies swelling in her extremities.? Patient does note she has not taken her daily medications including her antihypertensives her gabapentin but states she does not normally have numbness or tingling in her right lower extremity.? She has been diagnosed with peripheral neuropathy in the past but states she has not felt for several years.? Patient denies any fevers or chills, no cold cough or congestion.? She is felt hot at times but has not had any objective fevers.? Patient does have a prior history of lumbar fusion and did have an EMG for her lower extremities which she states had positive findings, but that nothing could be done about it.? She is not on aspirin or any daily thinners.? 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 Chest x-ray ordered in the emergency department was unremarkable. Head CT indicated possible lacunar infarct in the right basal ganglia/internal capsule. CTA of the head and neck indicated proximal 50% stenosis of the right internal carotid artery origin the rest of that study was negative. She initially presented with a blood pressure of 215/83 and currently it is 147/66, she is afebrile, her heart rate is 76 respiratory rate 18 oxygen saturation 95% on room air she weighs 87.5 kg with a BMI of 35.7. She is a mildly elevated white count of 11.1 mild left shift of 8800 sodium 134 chloride 94 BUN 20 glucose was 105 and her A1c is 6.4 lipid panel is pending and COVID-19 PCR is negative. FH: in addition to family history noted below she had one daughter who at the age of 41 of oligodendroglioma that then progressed to a glioblastoma and a 55-year-old daughter with ankylosing spondylosis. Patient History Medical History Anemia Anxiety Arthritis Asthma CHF (congestive heart failure) Depression Diabetes Facet arthropathy, lumbar Fibromyalgia Heart failure HTN (hypertension) Lumbar post-laminectomy syndrome Neuropathy CLAUDE on CPAP Pneumonia (2017) Sciatica Scoliosis due to degenerative disease of spine in adult patient Seasonal allergies Spinal stenosis TIA (transient ischemic attack) Surgical History H/O lumbosacral spine surgery History of arthroplasty of left knee History of arthroplasty of right knee History of carpal tunnel surgery of right wrist History of hysterectomy Hx of elbow surgery (2018) Hx of laminectomy (1969) Hx of lumbosacral spine surgery (2012) Hx of tonsillectomy Family & Social History Family History Father Lung cancer Mother Vascular dementia Sister Allergies Asthma Hypertension Vascular dementia Grandmother No problems noted. Social History: household members spouse Safety & Behavioral: Feels Safe in Current Yes Environment Been Physically Hurt or No Threatened By a Person Tobacco & Substance use: Smoking Status Never smoker alcohol intake former Substance Use Type does not use Meds Home Medications and Allergies Home Medications Medication Instructions Recorded Confirmed Type bumetanide 1 mg tablet 1 mg PO DAILY 01/11/20 04/10/22 History gabapentin 300 mg capsule 300 mg PO TID 01/11/20 04/10/22 History hydralazine 25 mg tablet 25 mg PO TID 01/11/20 04/10/22 History labetalol 200 mg tablet 200 mg PO BID 01/11/20 04/10/22 History losartan 100 mg tablet 50 mg PO DAILY 01/11/20 04/10/22 History magnesium oxide 1 tab PO DAILY 01/11/20 04/10/22 History metformin 500 mg tablet 500 mg PO BID 01/11/20 04/10/22 History pramipexole 0.75 mg tablet 0.75 mg PO DAILY 01/11/20 04/10/22 History tizanidine 2 mg capsule 2 mg PO BID PRN Pain 01/11/20 04/10/22 History amlodipine 5 mg tablet 5 mg PO BEDTIME PRN HTN #0 tabs 10/17/21 04/10/22 Rx docusate sodium 100 mg capsule 100 mg PO BID PRN Constipation 10/17/21 04/10/22 Rx from narcotic pain meds #30 caps ascorbic acid (vitamin C) 500 mg 500 mg PO DAILY 03/20/22 04/10/22 History tablet (Vitamin C) cholecalciferol (vitamin D3) 125 125 mcg PO DAILY 03/20/22 04/10/22 History mcg (5,000 unit) tablet (Vitamin D3) coenzyme Q10 100 mg capsule 100 mg PO DAILY 03/20/22 04/10/22 History (CoQ-10) cranberry fruit concentrate 250 mg 250 mg PO DAILY uninary spasm 03/20/22 04/10/22 History chewable tablet (Azo Cranberry) melatonin 5 mg tablet 5 mg PO BEDTIME PRN Insomnia 03/20/22 04/10/22 History vitamin E 200 unit tablet 180 mg PO DAILY 03/20/22 04/10/22 History empagliflozin 10 mg tablet 10 mg PO DAILY 04/10/22 04/10/22 History (Jardiance) spironolactone 25 mg tablet 12.5 mg PO DAILY 04/10/22 04/16/22 History Allergies Allergy/AdvReac Type Severity Reaction Status Date / Time No Known Drug Allergies Allergy Verified 09/02/22 16:51 Review of Systems Review of Systems ROS: Yes All systems reviewed with the patient and are negative except as otherwise documented Exam Vital Signs (past 8 hours): - 09/02/22 17:30 09/02/22 17:30 09/02/22 17:58 Temperature Pulse Rate 74 Respiratory Rate 11 L Blood Pressure 209/90 H 203/131 H Pulse Oximetry 96 Oxygen Delivery Method Oxygen Flow Rate 09/02/22 17:58 09/02/22 18:00 09/02/22 18:00 Temperature Pulse Rate 71 71 Respiratory Rate 21 17 Blood Pressure 205/100 H Pulse Oximetry 98 97 Oxygen Delivery Method Room Air Oxygen Flow Rate 09/02/22 18:15 09/02/22 18:30 09/02/22 18:30 Temperature Pulse Rate 73 73 Respiratory Rate 13 28 H Blood Pressure 213/96 H Pulse Oximetry 96 97 Oxygen Delivery Method Oxygen Flow Rate 09/02/22 18:45 09/02/22 19:00 09/02/22 19:01 Temperature Pulse Rate 75 79 79 Respiratory Rate 26 H 26 H 28 H Blood Pressure Pulse Oximetry 96 97 97 Oxygen Delivery Method Room Air Oxygen Flow Rate 09/02/22 19:01 09/02/22 23:49 Temperature 98.1 F Pulse Rate 76 Respiratory Rate 18 Blood Pressure 195/78 H 147/66 H Pulse Oximetry 95 Oxygen Delivery Method Oxygen Flow Rate 0 Oxygen Delivery Method Room Air Oxygen Flow Rate 0 Narrative Exam Narrative: Gen: Alert, oriented, well-developed 82 y.o. female, NAD HEENT: normocephalic, atraumatic, conjunctiva clear, sclera non-icteric, oral mucosa pink and moist Neck: supple, full ROM, no JVD, trachea is midline Resp: Lungs CTA, non-labored breathing CV: RRR, no murmur or rubs Abd: soft, non-tender, normoactive BTs Skin: no lesions or rashes, dry and intact Neuro: NIH of 2, Alert and oriented X 4 w/no focal deficits. Speech clear and coherent. Extremities: moves all 4 extremities, is ambulatory, negative Carrie?s sign Psyche: normal mood and affect. Objective Labs 09/02/22 17:23 09/02/22 17:23 Labs: Laboratory Results - last 24 hr 09/02/22 09/02/22 09/02/22 17:23 17:23 17:23 WBC 11.1 H RBC 4.46 Hgb 12.7 Hct 37.9 MCV 84.9 MCH 28.4 MCHC 33.4 RDW 13.1 Plt Count 219 Neut % (Auto) 79.7 H Lymph % (Auto) 13.1 L [place] % (Auto) 5.9 Eos % (Auto) 0.9 L Baso % (Auto) 0.4 Neut # (Auto) 8800 H Lymph # (Auto) 1500 [place] # (Auto) 700 Eos # (Auto) 100 Baso # (Auto) 0 Sodium 134 L Potassium 4.3 Chloride 94 L Carbon Dioxide 30 BUN 20 H Creatinine 0.66 Estimated GFR > 60 BUN/Creatinine Ratio 30.3 H Glucose 105 Hemoglobin A1c Calcium 9.4 Magnesium 1.9 Total Bilirubin 0.4 AST 26 ALT 22 Alkaline Phosphatase 120 Total Creatine Kinase 53 CK-MB (CK-2) TNP CK-MB (CK-2) Rel Index TNP Troponin I 0.017 Total Protein 7.1 Albumin 4.3 Globulin 2.8 Albumin/Globulin Ratio 1.5 Lipase 82 SARS-CoV-2 (PCR) 09/02/22 09/02/22 17:23 18:55 WBC RBC Hgb Hct MCV MCH MCHC RDW Plt Count Neut % (Auto) Lymph % (Auto) [place] % (Auto) Eos % (Auto) Baso % (Auto) Neut # (Auto) Lymph # (Auto) [place] # (Auto) Eos # (Auto) Baso # (Auto) Sodium Potassium Chloride Carbon Dioxide BUN Creatinine Estimated GFR BUN/Creatinine Ratio Glucose Hemoglobin A1c 6.4 H Calcium Magnesium Total Bilirubin AST ALT Alkaline Phosphatase Total Creatine Kinase CK-MB (CK-2) CK-MB (CK-2) Rel Index Troponin I Total Protein Albumin Globulin Albumin/Globulin Ratio Lipase SARS-CoV-2 (PCR) Negative Assessment & Plan Assessment & Plan narrative: Yomaira Kinney is an 82 y.o. female will be observed overnight for further assessment and workup of a TIA/Stroke TIA/Stroke, acute and present on admission - Cardiac telemetry - NIH score greater than 5 yes X no, NIH scoring and neuro checks q 4 hours - Dual antiplatelet therapy: No, full dose aspirin only. If MRI positive, initiate dual antiplatelet therapy with clopidogrel 75 mg p.o. daily and aspirin 81 mg p.o. daily - MR stroke scheduled for 09/03 - Complete Echo with bubble study for 09/03 - PT/OT/ST evaluation Hypertension, acute with an admission bp of 215/83, present on admission - Allow for permissive hypertension of 220/110 HR 60 to allow for brain perfusion - Allow for permissive hypertension for brain profusion of a systolic of 220 and a diastolic of 105. - IV labetolol if his systolic exceeds 220 or diastolic greater than 105. - continue home dose of losartan 150 mg p.o. daily, consider replacing hydralazine with oral metoprolol due to rebound effect of hydralazine HLD Fasting lipid panel, pending for 0500 labs - Atorvastatin 80 mg po at bedtime Risk stratification - Fasting lipid panel pending for the morning - A1c is 6.4 % Diabetes type 2 Other independent historians: none Discussion of results, plan of care with independent HCP/other: ED provider Reviewed outside records: prior echo VTE Prophylaxis: Wells risk score 0 X Enoxaparin 40 mg subQ once daily X Bilateral SCDs Patient is placed into observation as her stay is not expected to exceed 2 midnights. 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 [X] I have utilized all available immediate resources to obtain, update, or review of the patient's current medications VTE Deep Vein Thrombosis/Pulmonary Embolism Present on Admission: No MIPS - Admit I confirm the patient?s Advance Care Plan is present, Code status is documented, Surrogate decision maker is in patient?s record: Yes MIPS - DC The patient has current or prior documentation of left ventricular ejection fraction (LVEF) less than 40%, or moderate or severely depressed left ventricular systolic function.: No COVID-19 COVID-19 status: Negative Result date/Date tested (Pos, Neg/Pending): 09/02/22
[2022-09-03 04:55] VITALS: BP 165/63; PULSE 70; RESP 18; TEMP 36.7; O2SAT 96
[2022-09-03] MEDS: ONDANSETRON 4 MG/2 ML INJ IV ×2 (05:34→08:48)
[2022-09-03 06:54] LABS: Add Manual Diff / Slide Review NO; Basophils Absolute Auto 100 /uL (0-100); Basophils Percent Auto 0.6 % (0-2); Eosinophils Absolute Auto 200 /uL (0-450); Eosinophils Percent Auto 1.6 % (2-4); Hematocrit 35.8 % (36-46); Lymphocytes Absolute Auto 1600 /uL (1100-4500); Lymphocytes Percent Auto 15.8 % (25-40); Mean Corpuscular HGB Conc 33.5 % (30-36); Mean Corpuscular Hemoglobin 28.5 PG (26-34); Mean Corpuscular Volume 84.9 fL (80-100); Monocytes Absolute Auto 700 /uL (0-900); Monocytes Percent Auto 6.8 % (3-14); Neutrophils Absolute Auto 7900 /uL (1500-7000); Neutrophils Percent Auto 75.2 % (50-75); Platelet Count 202 X10^3/uL (150-400); Red Blood Cell Count 4.22 X10^6/uL (4.0-5.2); Red Cell Distribution Width 13.1 % (11.6-14.8); White Blood Cell Count 10.5 X10^3/uL (4.5-11.0)
[2022-09-03 06:55] LABS: Alanine Aminotransferase 20 IU/L (<35); Albumin 3.7 g/dL (3.5-5.0); Albumin Globulin Ratio 1.4 (1.0-2.8); Alkaline Phosphatase 96 U/L (38-126); Aspartate Aminotransferase 25 IU/L (14-36); Bilirubin Total 0.4 mg/dL (0.2-1.3); Blood Urea Nitrogen 17 mg/dL (7-17); Calcium 8.6 mg/dL (8.4-10.2); Carbon Dioxide 30 mmol/L (22-32); Chloride 99 mmol/L (98-107); Cholesterol 144 mg/dL (140-199); Estimated Glomerular Filt Rate > 60 mL/min (>60); Globulin 2.6 g/dL (1.7-4.1); Glucose 115 mg/dL (80-110); HDL Cholesterol 59 mg/dL (40-60); HEMOLYSIS 29 (0-50); LDL Cholesterol Calculated 67 mg/dL (<100); Magnesium 1.8 mg/dL (1.6-2.3); Potassium 4.1 mmol/L (3.4-5.1); Sodium 135 mmol/L (137-145); Total Protein 6.3 g/dL (6.3-8.2); Triglycerides 88 mg/dL (35-150)
[2022-09-03 07:29] LABS: Thyroid Stimulating Hormone 1.77 uIU/mL (0.47-4.68)
[2022-09-03] MEDS: ASPIRIN EC 325 MG TABLET PO (08:52)
[2022-09-03 08:53] VITALS: BP 165/63; PULSE 70
[2022-09-03] MEDS: LOSARTAN 50 MG TABLET PO (08:53)
[2022-09-03 09:00] VITALS: BP 175/70; PULSE 76; RESP 17; TEMP 36.3; O2SAT 93
--- NOTE | 2022-09-03 09:32 | CM.DANOTE ---
Addendum entered by JUAN Rodriguez 09/03/22 15:32: ADD: Per PT, now recommending HH as feel pt would benefit from HH at d/c as pt seems somewhat below baseline. SW called [facility] based on [facility] and [facility] and confirmed both do not accept [employer] M[employer] Adv at this time. SW called [facility] and confirmed they accept pt's insurance and made new referral and faxed F2F and HH orders but d/c summ not yet available. SW met bedside with pt and updated on above and pt confirms her has used [facility] before and they were good. SW provided [facility] brochure and updated RN and just awaiting Echo results so pt can d/c and her friend is already waiting downstairs to provide transport. BF Addendum entered by JUAN Rodriguez 09/03/22 14:35: ADD: Per RN, getting pt's discharge pwk together and pt requested info on [facility] and RN kindly printing off [facility] info to give to pt for discharge. BF Addendum entered by JUAN Rodriguez 09/03/22 13:36: ADD: Per MD, pt should be medically stable to d/c home later today and no identified discharge planning needs. Per OT, recommending home with friend assist and pt scored fairly well on brief cog assess. Plan: Patient to d/c home this evening via friend POV and assist. BF Original Note: Patient is a 81 yo female who was admitted on 09/02/22 for CVA r/o. Pt has [employer] MCR ADV for insurance and her PCP is Tresa Stevens. EMR was reviewed. Per , pt with hx of TIA and admitted for TIA vs CVA r/o and to have MRI/Echo/ poss stress test. Currently no PT/OT/ST ordered. SW met bedside with pt and explained role and she confirms she lives in [place] with her spouse who had a stroke 3 years ago and still has one sided weakness and needs walker for ambulation and therefore limited in his ability to assist but can get food and items for pt but not physically assist. Pt was last admitted last year October 2021 for planned TLIF and discharged to [facility] and states she was there about 3 weeks before safe d/c home. Pt confirms that she has been independent since she got home from SNF and continues to assist spouse as needed. Pt denies any local family but states they have very good and supportive local friends and pt states she already talked to a friend about providing transport home at d/c. Pt denies any other supportive services in place and denies any other caregivers in the home. Pt is hopeful for home later today if stable. Plan: SW to follow for MRI and Echo results and possible PT eval if needed to confirm safe d/c to home via friend POV and any further identified discharge planning needs. JUAN Rodriguez Discharge Planning/Care Management CM Discharge Assessment Start: 09/03/22 09:31 Freq: Status: Active Protocol: Document 09/03/22 09:31 BF (Rec: 09/03/22 09:32 BF [id number]) Discharge Planning Assessment Assigned Brim Blocker JUAN Mary DPOA/Assigned Designee Name spouse Edgardo Contact Information [phone] Advance Directives? Yes Advance Directives on File No History Provided By Patient,Medical Record Has Patient been admitted in last 30 No days? Prior Living Arrangements Apartment/Condo Household Members spouse Type of transporation used prior to Drives own vehicle admit Independent with ADL's Yes Is patient alert and oriented? Yes Caregiver for Another Yes: assists spouse who had severe stroke few yrs ago DME Already Rented / Owned FWW / Walker,Cane Comment Likely home pending progress and test results Barriers to Discharge No Discharge Plan Home Transportation Arrangement Friend set up to provide transport home at d/c Referrals Initiated None needed Whiteboard Updated in Patient Room with Yes name and ext. # of Brim Blocker Review Status In Process Please Provide Date Initial DC 09/03/22 Assessment Was Performed Next Review Type Continued Stay Review
[2022-09-03 11:30] VITALS: BP 155/70; BP 164/80; PULSE 70
--- NOTE | 2022-09-03 11:40 | OT.IP.EVAL ---
Past Medical History (Last Reviewed 09/03/22 @ 01:21 by LORENZA Saucedo) Anemia Anxiety Arthritis Asthma CHF (congestive heart failure) Depression Diabetes Facet arthropathy, lumbar Fibromyalgia Heart failure HTN (hypertension) Lumbar post-laminectomy syndrome Neuropathy CLAUDE on CPAP Pneumonia (2017) Sciatica Scoliosis due to degenerative disease of spine in adult patient Seasonal allergies Spinal stenosis TIA (transient ischemic attack) Surgical History (Last Reviewed 09/03/22 @ 01:21 by LORENZA Saucedo) H/O lumbosacral spine surgery History of arthroplasty of left knee History of arthroplasty of right knee History of carpal tunnel surgery of right wrist History of hysterectomy Hx of elbow surgery (2018) Hx of laminectomy (1969) Hx of lumbosacral spine surgery (2012) Hx of tonsillectomy Occupational Therapy Inpatient Evaluation/Re-Eval M1 PT/OT-IP Prior Functional Status Start: 09/03/22 11:42 Freq: NEEDED Status: Active Protocol: Document 09/03/22 11:40 [facility] (Rec: 09/03/22 13:28 [facility] [id number]) Medical Review Prior Functional Status Communication independent Mobility and Gait Pt states uses a 4ww in side and outside at all times. Activities of Daily Living and IADL's Pt states has difficulty with IADl needs and wiping for hygiene needs. Prior Functional Level (Other details) Pt help to take care or her who had a CVA a few years ago. Pt states has a bad left shoulder with arthritis which she states to have a shoulder replacement down the road when able. Pt however wanting to move out of her two floor apartment to move closer to family. Social History Household Members spouse Living Arrangements Apartment/Condo Number of Floors (Floors) Two Floors Number of Stairs To Enter/Railing? NO steps to enter from the garage and 15 steps with right hand rail up to the bedroom. Home Environment Standard Height Toilet,Walk in Shower,Tub/Shower Home Equipment Front Wheel Walker,Four Wheel Walker,Straight Cane,Bedside Commode,Raised Toilet Seat w/ Armrests,Shower Seat without Backrest,Grab Bars Near Toilet ,Grab Bars In Shower Additional Social History Comment Pt states usually shower upstairs which has a tub/ shower. M2 OT-IP Current Condition Start: 09/03/22 13:08 Freq: Status: Active Protocol: Document 09/03/22 11:40 [facility] (Rec: 09/03/22 13:28 [facility] [id number]) Occupational Therapy Current Condition Current Condition Evaluation Date 09/03/22 Treatment Diagnosis TIA/CVA rule out, dizzy M3 OT- IP Subjective and Pain Start: 09/03/22 13:08 Freq: Status: Active Protocol: Document 09/03/22 11:40 [facility] (Rec: 09/03/22 13:28 [facility] [id number]) OT- Subjective Occupational Therapy Visit Type Type Initial Evaluation Visit Start Time 11:40 Visit Stop Time 12:25 Total Visit Minutes 45 Occupational Therapy Visit Comments Patient Comments Pt agreed to get up to use the bathroom, and do grooming and oral care needs. Patient/Caregiver Goals To go home. OT Pain Assessment Pain When Pain Assessed At Rest Pain Present Pain Present Denied Pain M4 OT- IP ADL's Start: 09/03/22 13:08 Freq: Status: Active Protocol: Document 09/03/22 11:40 [facility] (Rec: 09/03/22 13:28 [facility] [id number]) OT [id number] Comments OT Self-Feeding Comments no issues anticipated OT ADL-Grooming General Evaluation Grooming Ability Independent Comments OT Grooming Comments Able to do while standing in front of the sink with FWW. OT ADL-Oral Care General Eval Oral Care Ability Independent Comments Oral Care Comments While standing. OT ADL-Dressing General Eval Lower Body Dressing Ability Standby Assistance Areas Needing Assistance Underpants/Brief OT ADL-Toileting General Evaluation Toileting Ability Moderate Assistance Comments OT Toileting Comments Pt needing assist for completeness while standing. Educated pt on using wet wipes , or get a toilet paper aid or bidet to assist with her hygiene needs. OT ADL-Bathing Comments OT Bathing Comments Pt states to shower at home. Pt states can use the walk in shower downstairs initially. M5 OT- IP IADL's Start: 09/03/22 13:08 Freq: Status: Active Protocol: Document 09/03/22 11:40 [facility] (Rec: 09/03/22 13:28 [facility] [id number]) OT-Instrumental Activities of Daily Living Deficits IADL Deficits Identified Deficits Home Safety Awareness Awareness of Need for Assistance at Home Good Awareness Ability to Problem Solve Emergency Able to Problem Solve Situations Home Safety Comments Pt's able to assist with lifting needs for IADl needs due to pt's arthritic left shoulder. Pt heavily relies on her 4ww during IADl needs. Medication Management Medication Management No Deficits Identified Money Management Money Management No Deficits Identified Meal Preparation Meal Preparation No Deficits Identified Senior Energy Market Coordinator Senior Energy Market Coordinator No Deficits Identified M6 OT- IP Functional Cognition Start: 09/03/22 13:08 Freq: Status: Active Protocol: Document 09/03/22 11:40 [facility] (Rec: 09/03/22 13:28 [facility] [id number]) Cognitive Factors Limiting Selfcare Function Cognitive Ability Level of Alertness Alert Patient Orientation Name,Age,Birthday,Month,Date, Year,Day of Week,Place, Situation Attention Span Ability Capable of Focused Attention, Capable of Sustained Attention Ability to Follow Commands Able to Follow Multi-Step Commands Memory Description No Deficits Noted Safety Awareness No Deficits Noted Problem Solving Ability No deficits Noted Executive Function Ability No Deficits Noted Cognitive Comments Cognitive Assessment Comments Pt is intact. Pt scored 70 seconds on Lincoln Making Part B which implies normal but not perfect for visual attention, speed of processing, executive functioning, mental flexibility, and task switching. Pt's score for her age in above the 90th percentile. OT- Vision and Hearing OT- Hearing Assessment OT- Hearing Assessment WFL OT- Vision Assessment Visual Acuity Glasses All The Time Visual Attentiveness WFL Occular Pursuits WFL M7 OT- IP Mobility and Balance Start: 09/03/22 13:08 Freq: Status: Active Protocol: Document 09/03/22 11:40 [facility] (Rec: 09/03/22 13:28 [facility] [id number]) OT- Bed Mobility Assessment Supine to Sit Supine to Sit Assist Standby Assistance Sit to Supine Sit to Supine Assist Standby Assistance OT-Transfer Assessment Sit to and From Stand Sit to and from Stand Standby Assistance Transfers Transfer Ability Standby Assistance Technique Transfer Destination Bed,Toilet Transfer Technique Stand Step Pivot Devices Transfer Assistive Devices Gait Belt,Front Wheeled Walker Comments Mobility Comments Pt SBA with FWW for all mobility needs in the room with good safety. OT- Balance Assessment Sitting Balance and Reactions Static Sitting Balance Ability Normal Dynamic Sitting Balance Ability Good Standing Balance and Reactions Static Standing Balance Ability Good Dynamic Standing Balance Ability Fair Comments Other Balance Tests/Deviations/Treatment Pt having to move slowly due : to her neuropathy in her feet. Pt states feeling a little dizzy BP 176/72. M8 OT- IP Objective Assessments Start: 09/03/22 13:08 Freq: Status: Active Protocol: Document 09/03/22 11:40 [facility] (Rec: 09/03/22 13:28 [facility] [id number]) OT Gross Range of Motion Upper Extremity Range of Motion Assessment Left Impaired OT Strength Upper Extremity Strength Assessment Left Impaired OT-Muscle Tone Assessment Muscle Tone WNL Yes M9 OT- IP Assessment and Plan Start: 09/03/22 13:08 Freq: Status: Active Protocol: Document 09/03/22 11:40 [facility] (Rec: 09/03/22 13:28 [facility] [id number]) OT Summary Assessment and Plan Potential Rehabilitation Potential Excellent Analytic Complexity at Evaluation Low Summary OT Impairments Pain,Range of Motion,Strength, Balance,Functional Mobility, Dressing,Toileting,Bathing, Toilet Transfers,Shower Transfers Progress Towards Goals Progressing Toward Goals Assessment Summary Pt low complexity and pt feels close to her baseline at this time. Pt needing assist for hygiene at this time and having trouble to reach and suggested to get a toilet paper aid or bidet to assist. Pt looking to go home with her to assist. Pt scored 70 seconds for [place] Making Part B which implies normal but not perfect for cognitive but above 90th- percentile for her age. Goals Toileting Goal Independent Bathing Goal Independent Toilet Transfer Goal Independent Shower Transfer Goal Independent Days to Meet Goals 2 Frequency of Treatment Frequency Of Treatment Once a Day Treatment Plan OT Treatment Plan ADL Training,Functional Mobility,Patient/Family Education,Discharge Planning Other Treatment Recommendations and Next shower if still here Treatment Focus Discharge Recommendations OT Discharge Recommendations Home with Assistance Home Equipment Needs toilet paper aid Transportation Needs at Discharge Private Vehicle
[2022-09-03 13:00] VITALS: BP 157/70; PULSE 69; RESP 17; TEMP 36.3; O2SAT 96
--- NOTE | 2022-09-03 13:22 | P.DS_ITS ---
History of Present Illness History of Present Illness Date Patient Seen: 09/02/22 Time Patient Seen: 22:30 Chief complaint: Stroke rule out, dizzy X 2 days Narrative: Per admitting provider Yomaira Kinney is an 82-year-old female who has a history of prior TIA with no residual deficits in 2001 that involved expressive aphasia, hypertension, diabetes, peripheral neuropathy and history of BPPV.? Patient states she has had symptoms since yesterday at noon, she states she was watching TV got up to go to the bathroom with the kitchen and felt off balance with/dizziness but describes it as the room spinning.? Patient states it has been persistent not waxing and waning intensity it has not resolved.? She has had BPPV in the past but she states that was always trending to her left side and movement into other directions would not cause issues.? Patient states that she did have the Alice maneuver in the past and it was helpful.? But she states this is different.? She did try meclizine this morning at 9:30 a.m. and took another dose at 2:00 p.m. which was helpful.? She has had a headache that has been persistent gradual on onset.? She is unsure of exact onset time.? She does state she has some new numbness and tingling and a sensation of weakness in her right calf and foot.? She does state she has some nerve damage as a result of several back surgeries she is had starting in 2012 and the last 1 done in October of last year. She denies chest pain, no new shortness of breath.? She is had nausea but no active vomiting.? No diarrhea, no constipation, no black or bloody stools.? No new urinary symptoms.? Patient denies numbness or tingling or weakness elsewhere in her body.? Denies swelling in her extremities.? Patient does note she has not taken her daily medications including her antihypertensives her gabapentin but states she does not normally have numbness or tingling in her right lower extremity.? She has been diagnosed with peripheral neuropathy in the past but states she has not felt for several years.? Patient denies any fevers or chills, no cold cough or congestion.? She is felt hot at times but has not had any objective fevers.? Patient does have a prior history of lumbar fusion and did have an EMG for her lower extremities which she states had positive findings, but that nothing could be done about it.? She is not on aspirin or any daily thinners.? 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 Chest x-ray ordered in the emergency department was unremarkable. Head CT in dicated possible lacunar infarct in the right basal ganglia/internal capsule. CTA of the head and neck indicated proximal 50% stenosis of the right internal carotid artery origin the rest of that study was negative. She initially presented with a blood pressure of 215/83 and currently it is 147/66, she is afebrile, her heart rate is 76 respiratory rate 18 oxygen saturation 95% on room air she weighs 87.5 kg with a BMI of 35.7. She is a mildly elevated white count of 11.1 mild left shift of 8800 sodium 134 chloride 94 BUN 20 glucose was 105 and her A1c is 6.4 lipid panel is pending and COVID-19 PCR is negative. FH: in addition to family history noted below she had one daughter who at the age of 41 of oligodendroglioma that then progressed to a glioblastoma and a 55-year-old daughter with ankylosing spondylosis. Discharge Providers Provider Date of admission: 09/02/22 22:14 Discharge Date: 09/04/22 Primary care physician: Tresa Stevens PA-C Consults: 09/03/22 10:14 Consult to Occupational Therapy Evaluate & Treat Comment: Physician Instructions: Evaluate and treat Consult to Physical Therapy Evaluate & Treat Comment: Physician Instructions: Evaluate and Treat 09/03/22 15:36 Consult to Home Health Routine Comment: TIA, stroke work up, hypertension, neuropathy Reason For Exam: Set up RN/PT/DIRECTOR ENERGY for d/c to home today Discharge provider: Jaspal Huston MD Summary Hospital Course Discharge Diagnosis: 1. Vertigo 2. Hypertension 3. Hyperlipidemia Hospital Course: Ms. Kinney was admitted with vertigo. This was positional. Orthostatic checked and were negative. MRI of the brain showed no stroke. ECHO showed a slight reduction in EF from 60-65% to 50-55% with no other significant changes. Her blood pressure initially was quite elevated over the 200s, and improved to systolic 150s by discharge. Her vertigo significantly improved. She had been recently prescribed tramadol and this was not given in the hospital. It is possible she had a adverse effect to this medication. She was encouraged to stop this medication as it may be the etiology. She was prescribed short course of hydrocodone instead. She was encouraged to follow up with her PCP and ski molder this week and continue to monitor for symptoms as she may need further workup if stopping tramadol does not completely resolve her symptoms. Exam Vital Signs (past 8 hours): Oxygen Delivery Method Room Air Oxygen Flow Rate 0 Narrative Exam Narrative: Gen: no acute distress Resp: clear bilaterally CV: regular rate and rhythm, no murmurs Abd: soft, non-tender, normal bowel sounds NEURO: awake, alert, oriented, no focal deficits Objective Labs 09/03/22 06:31 09/03/22 06:31 [facility] Medical History Anemia Anxiety Arthritis Asthma CHF (congestive heart failure) Depression Diabetes Facet arthropathy, lumbar Fibromyalgia Heart failure HTN (hypertension) Lumbar post-laminectomy syndrome Neuropathy CLAUDE on CPAP Pneumonia (2016) Sciatica Scoliosis due to degenerative disease of spine in adult patient Seasonal allergies Spinal stenosis TIA (transient ischemic attack) Surgical History H/O lumbosacral spine surgery History of arthroplasty of left knee History of arthroplasty of right knee History of carpal tunnel surgery of right wrist History of hysterectomy Hx of elbow surgery (2018) Hx of laminectomy (1969) Hx of lumbosacral spine surgery (2012) Hx of tonsillectomy Family History Father Lung cancer Mother Vascular dementia Sister Allergies Asthma Hypertension Vascular dementia Grandmother No problems noted. Social History household members: spouse Smoking Status: Never smoker alcohol intake: former Discharge Plan Discharge Plan Patient Disposition: Home Provider Discharge Comment: Ms. Kinney came in with vertigo. She felt improved in the hospital. She had workup that was negative for stroke. Her ECHO was reassuring. Her symptoms may be secondary to new medication tramadol, and she w ill try hydrocodone instead. Discharge orders & Medications Prescriptions: New hydrocodone-acetaminophen 5-325 mg tablet 1 tab PO BID PRN (Reason: pain) Qty: 20 0RF Continued docusate sodium 100 mg Capsule 100 mg PO BID PRN (Reason: Constipation from narcotic pain meds) Qty: 30 0RF amlodipine 5 mg Tablet 5 mg PO BEDTIME PRN (Reason: HTN) Qty: 0 0RF ascorbic acid (vitamin C) [Vitamin C] 500 mg Tablet 500 mg PO DAILY vitamin E 200 unit Tablet 180 mg PO DAILY coenzyme Q10 [CoQ-10] 100 mg Capsule 100 mg PO DAILY melatonin 5 mg Tablet 5 mg PO BEDTIME PRN (Reason: Insomnia) cholecalciferol (vitamin D3) [Vitamin D3] 125 mcg (5,000 unit) Tablet 125 mcg PO DAILY Azo Cranberry 250 mg Tablet,Chewable 250 mg PO DAILY spironolactone 25 mg Tablet 12.5 mg PO DAILY Jardiance 10 mg Tablet 10 mg PO DAILY bumetanide 1 mg tablet 1 mg PO DAILY gabapentin 300 mg capsule 300 mg PO TID Rx Instructions: 3 tabs in AM, 2 mid day, 3 PM hydralazine 25 mg tablet 25 mg PO TID labetalol 200 mg tablet 200 mg PO BID losartan 100 mg tablet 50 mg PO DAILY metformin 500 mg tablet 500 mg PO BID pramipexole 0.75 mg tablet 0.75 mg PO DAILY tizanidine 2 mg capsule 2 mg PO BID PRN (Reason: Pain) magnesium oxide 1 tab PO DAILY Follow up/Referrals: Tresa Stevens PA-C [Primary Care Provider] - 1 Week (follow up from hospitalization for dizziness/vertigo) Diet/Activity/Treatments Diet: Carb-consistent/Diabetic Visit Report/Discharge Packet Instructions: Hydrocodone/Acetaminophen (By mouth) Stand Alone Forms: Patient Portal/API, Stroke Signs & Symptoms Discharge Data Primary Care Provider: Tresa Stevens Attending Provider: Yaz Vyas VTE Deep Vein Thrombosis/Pulmonary Embolism Present on Admission: No
--- NOTE | 2022-09-03 14:34 | PT.IIE ---
Surgical History (Last Reviewed 09/03/22 @ 01:21 by LORENZA Saucedo) H/O lumbosacral spine surgery History of arthroplasty of left knee History of arthroplasty of right knee History of carpal tunnel surgery of right wrist History of hysterectomy Hx of elbow surgery (2018) Hx of laminectomy (1970) Hx of lumbosacral spine surgery (2012) Hx of tonsillectomy Medical History (Last Reviewed 09/03/22 @ 01:21 by LORENZA Saucedo) Anemia Anxiety Arthritis Asthma CHF (congestive heart failure) Depression Diabetes Facet arthropathy, lumbar Fibromyalgia Heart failure HTN (hypertension) Lumbar post-laminectomy syndrome Neuropathy CLAUDE on CPAP Pneumonia (2017) Sciatica Scoliosis due to degenerative disease of spine in adult patient Seasonal allergies Spinal stenosis TIA (transient ischemic attack) Physical Therapy Inpatient Evaluation/Re-Eval M1 PT/OT-IP Prior Functional Status Start: 09/03/22 11:42 Freq: NEEDED Status: Active Protocol: Document 09/03/22 14:34 AW (Rec: 09/03/22 15:14 AW [id number]) Medical Review Prior Functional Status Medical History Reviewed Yes Communication Independent Mobility and Gait Pt states uses a 4ww in side ( if feeling wobbly) and outside (at all times). She has a wheelchair but does not use it . She is able to complete a shopping trip if she holds on to a cart. She denies falls. Pt had lumbar surgery last October and continues to feel weak and fatigued. Activities of Daily Living and IADL's Per OT: Pt states has difficulty with IADl needs and wiping for hygiene needs. She can drive but limits her driving due to dizziness. Prior Functional Level (Other details) Pt help to take care for her who had a CVA a few years ago. Pt states has a bad left shoulder with arthritis which she states to have a shoulder repalcement down the road when able. Pt however wanting to move out of her two floor apartment to move closer to family. Social History Household Members spouse Living Arrangements Apartment/Condo Number of Floors (Floors) Two Floors Number of Stairs To Enter/Railing? NO steps to enter from the garage and 15 steps with right hand rail up to the bedroom. Home Environment Standard Height Toilet,Walk in Shower,Tub/Shower Home Equipment Front Wheel Walker,Four Wheel Walker,Straight Cane,Manual Wheelchair,Bedside Commode, Raised Toilet Seat w/Armrests, Tub Transfer Bench,Shower Seat without Backrest,Grab Bars Near Toilet,Grab Bars In Shower Additional Social History Comment Pt states usually shower upstairs which has a tub/ shower. M2 PT-IP Current Condition Start: 09/03/22 11:42 Freq: NEEDED Status: Active Protocol: Document 09/03/22 14:34 AW (Rec: 09/03/22 15:14 AW [id number]) Physical Therapy Current Condition Current Condition Evaluation Date 09/03/22 Treatment Diagnosis weakness, fatigue, dizziness affecting mobility independence Onset Date 08/31/22 M3 PT-IP Subjective Start: 09/03/22 11:42 Freq: NEEDED Status: Active Protocol: Document 09/03/22 14:34 AW (Rec: 09/03/22 15:14 AW [id number]) Subjective Physical Therapy Visit Type Type Initial Evaluation Visit Start Time 14:07 Visit Stop Time 14:34 Total Visit Minutes 27 Physical Therapy Visit Comments Patient Comments Pt is willing to participate with PT Therapy Pain Assessment Pain When Pain Assessed During Mobility Pain Present Pain Present Denied Pain Location headache Intensity 1 Scale Used Numeric (0 - 10) M4 PT-IP Mobility and Gait Start: 09/03/22 11:42 Freq: NEEDED Status: Active Protocol: Document 09/03/22 14:34 AW (Rec: 09/03/22 15:14 AW [id number]) PT-Bed Mobility Assessment Supine to Sit Supine to Sit Contact Guard Assistance Sit to Supine Sit to Supine Standby Assistance Scooting Scooting to Edge of Bed Standby Assistance PT-Transfer Assessment Sit to and From Stand Sit to and from Stand Standby Assistance,Use of Upper Extremities Equipment Transfer Assistive Device Gait Belt,Front Wheeled Walker Orthotic/Prosthetic Devices or Brace: No Transfers Transfer Destination Bed Transfer Technique Stand Step Pivot Transfer Ability Level of Assist Standby Assistance Comments Mobility Comments Pt was lying in bed as PT arrived. BP 176/58 HR 71. She sat up EOB with VOLLEYBALL COACH needed due to getting stuck in sunken area of the bed. She reported dizziness in sitting and PT did observe right beating nystagmus. Pt stated dizziness subsided quickly and she had good awareness to sit until symptoms passed. She stood and used FWW to ambulate 75' SBA. Pt has neuropathy bilateral feet and reports occasional sharp nervy pain during ambulation. She needed two standing rest breaks to complete 75'. On return to the room, pt requested return to bed. She returned to supine SBA. Gait Assessment Gait Gait Assistance Required: Standby Assistance,Contact Guard Assist Distance (Feet) 75 Assistive Devices Assistive Device Gait Belt,Front Wheeled Walker Orthotic/Prosthetic Devices or Brace: No Gait Deviations General Gait Pattern Antalgic,Decreased Stride Length,Decreased Feet Clearance,Flexed Trunk,Wide Based Gait Factors Limiting Gait Function Factors Limiting Gait Function Decreased Activity Tolerance, Decreased Sensation,Decreased Strength,Pain,Poor Balance Comments Gait Comments See mobility comments for details. Stair Climbing Assessment Evaluation Level of Assist On Stairs Contact Guard Assistance Devices Stair Climbing Assistive Devices Right Railing Technique/Endurance Stair Climbing Direction Ascend and Descend Stair Climbing Technique Step to Step Number of Steps Climbed 3 Query Text: Stair Climbing Set # Repetitions (reps) 1 Comments Stair Climbing Comments Pt fatigued quickly but had no overt LOB. PT-Balance Assessment Sitting Balance and Reactions Static Sitting Balance Ability Good Dynamic Sitting Balance Ability Good Standing Balance and Reactions Static Standing Balance Ability Good Dynamic Standing Balance Ability Fair Device Used FWW. Mostly affected by weakness and fatigue. Functional Assessments Functional Tests Dynamic Gait Index 4-item DGI: 11/23 Other Functional Tests Performed mDGI: single point deducted for gait normal speed, 2 points deducted each for change in speed, gait with horizontal head turns, and gait with vertical head turns. M5 PT-IP Objective Assessments Start: 09/03/22 11:42 Freq: NEEDED Status: Active Protocol: Document 09/03/22 14:34 AW (Rec: 09/03/22 15:14 AW [id number]) Orientation Orientation/Cognition Level of Alertness Alert Orientation Name,Day of Week,Place, Situation Language Function Ability No Deficits Noted Safety Awareness Understands Safety Issues Memory Description No Deficits Noted Gross Range of Motion Upper Extremity ROM Assessment Left Impaired Impairments Pt considering L reverse TSA Lower Extremity ROM Assessment Within Functional Limits Strength Upper Extremity Strength Assessment Left Impaired Shoulder 3+/5 Lower Extremity Strength Hip 4-/5 Knee 4/5 Ankle 4/5 Comments Strength Comments No unilateral deficit is appreciated. Coordination Assessment Assessment Coordination Comments Unable to compare UE coordination side to side due to LUE pain and decreased ROM. Sensation Assessment Sensation Gross Sensation Right UE Impaired,Left UE Impaired,Right LE Impaired, Left LE Impaired Light Touch Impaired Proprioception (Position) Impaired Comments Sensation Comments Neuropathy affects hands and feet. Pt reports feeling as if her feet are wrapped in bubble wrap. She takes extra care and time on her feet to avoid falls. Muscle Tone Muscle Tone WNL Yes Other Assessments Other Other Assessments Slight right-beating ( torsional?) nystagmus noted in sitting with reports of dizziness. Pt has history of BPPV. M6 PT-IP Treatment Start: 09/03/22 11:42 Freq: NEEDED Status: Active Protocol: Document 09/03/22 14:34 AW (Rec: 09/03/22 15:14 AW [id number]) Physical Therapy Treatment Education Education Provided Safety M7 PT-IP Assessment and Plan Start: 09/03/22 11:42 Freq: NEEDED Status: Active Protocol: Document 09/03/22 14:34 AW (Rec: 09/03/22 15:14 AW [id number]) PT Summary Assessment and Plan Potential Rehabilitation Potential Good Status of Condition at Evaluation Evolving Summary Impairments Pain,ROM,Strength,Balance, Sensation,Bed Mobility, Transfers,Gait,Activity Tolerance Assessment Summary Yomaira is an 82 yo woman seen for PT evaluation per stroke protocol. She is modified independent at baseline with use of 4WW but notes she is increasingly dependent on her AD due to dizziness, weakness, and fatigue. She has history of TIA in 2001, BPPV, and multiple lumbar surgeries ( last was in October 2021). She feels she never quite regained her strength after her last surgery. She lives in a two- story condo with her spouse for whom she is primary caregiver due to his history of stroke. On assessment today , pt demonstrates decreased BLE strength and neuropathy clearly affects her gait. She scored 5/12 on 4-item DGI indicating increased risk of falls. No unilateral deficits were appreciated. Pt is at high risk of falling and has limited ability to drive due to ongoing concern for dizziness. Her right shoulder ROM and strength are impaired. She would benefit from subacute PT but leaving home would present a hardship due to her caregiving responsibilities to her spouse . Pt would benefit from home health PT to improve her strength and mobility independence, reducing her falls risk. Goals Bed Mobility Goal Independent Transfer Goal Independent,Four Wheeled Walker Gait Goal Independent,Four Wheel Walker Gait Distance 150 Other Goals - up/down 12 steps with unilateral rail SBA Days to Meet Goals 2 Frequency of Treatment Frequency Of Treatment Once a Day Treatment Plan Physical Therapy Treatment Plan Bed Mobility Training,Transfer Training,Gait Training, Therapeutic Exercise,Balance Retraining,Discharge Planning, Hot or Cold Pack,Neuromuscular Re-ed Other Recommendations and Next Treatment progress gait and stairs as Focus able Precautions Other Precautions falls risk Recommendations To Nursing Amount of Assist Needed Standby Assistance,1 Person Assist Discharge Recommendations PT Discharge Recommendations Home with Assistance,Home Health Transportation Needs at Discharge Private Vehicle
[2022-09-03] MEDS: ONDANSETRON 4 MG ODT SL (15:41)
--- NOTE | 2022-09-03 15:59 | PC.NURSE ---
Pt is A&OX3, VSS, afebrile (slightly hypertensive). Nuerologically remains unchanged with neuropathy, and R outer leg numbness. Patient reports dizziness improved. Some nausea experienced upon transfer to MRI and back well controlled with zofran prn and she is able to tolerate breakfast and a small lunch. Echo completed at bedside. PT/OT clearing patient for discharge home with Home Health. She verbalizes understanding of medications, fall precautions, worsening symptoms, as well as follow up plan. Echo results still pending and informed patient will follow up with results, as well as to follow up with cardiology. She is escorted via w/ch with all of her belongings to private vehicle with friend for discharge home this afternoon at approximately 1545 this afternoon.
[2022-09-05 09:46] LABS: HCO3 ABG 27 mmol/L (23-27); Oxygen Saturation ABG 90 % (95-100); PCO2 ABG 40.9 mmHg (35-45); PO2 ABG 57 mmHg (80-100); TCO2 ABG 28 mmol/L (23-27); pH ABG 7.42 (7.35-7.45)
[2022-09-05 09:47] LABS: Fractionated Inspired Oxygen 21
== END 2022-09-03 15:45 | disposition home or self-care (01) ==
LOC: ED 18:07 → AC 22:15
PROVIDERS: Emergency Medicine; Admitting Provider Nurse Practitioner Family; Emergency Provider Emergency Medicine; Family Provider Student in an Organized Health Care Education/Training Program; PCP Student in an Organized Health Care Education/Training Program; Referring Provider Emergency Medicine; Visit Provider Nurse Practitioner Family
DX: R42 Dizziness and giddiness (principal); R29.702 NIHSS score 2; I10 Essential (primary) hypertension; E78.5 Hyperlipidemia, unspecified; Z20.822 Contact with and (suspected) exposure to COVID-19
CPT/HCPCS: 36415; 36600; 70450; 70496; 70498; 70551; 71045; 80053; 80061; 82550; 82805; 82962; 83036; 83690; 83735; 84443; 84484; 85025; 87635; 93005; 93306; 96374; 96376; 97162; 97165; 99284; C9803; G0378; J2405; Q9967

== ENCOUNTER → 2022-10-11 15:24 | Outpatient (CLI) | payer OTHER, SELFPAY ==
--- NOTE | 2022-10-11 15:26 | DI.RAD.S_ITS ---
PROCEDURE: XR SHOULDER RT MIN 2V INDICATIONS: ACUTE RIGHT SHOULDER PAIN TECHNIQUE: 3 views of the shoulder were acquired. COMPARISON: None. FINDINGS: Bones: No fractures or dislocations. Moderate acromioclavicular joint osteoarthritis and [id number] glenohumeral joint osteoarthritis is seen. No suspicious bony lesions. Visualized ribs appear intact. Soft tissues: No suspicious soft tissue calcifications. 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 No fracture or dislocation. No gross soft tissue abnormalities. Dictated by: Greg Muñoz M.D. on 10/11/2022 at 17:05 Approved by: Greg Muñoz M.D. on 10/11/2022 at 17:05
== END ==
PROVIDERS: Family Provider Student in an Organized Health Care Education/Training Program; PCP Student in an Organized Health Care Education/Training Program; Referring Provider Student in an Organized Health Care Education/Training Program; Visit Provider Student in an Organized Health Care Education/Training Program
DX: M19.011 Primary osteoarthritis, right shoulder (principal); M25.511 Pain in right shoulder
CPT/HCPCS: 73030